=== PATIENT | female | born 1970 | race Caucasian/White ===

== ENCOUNTER → 2017-11-18 | Emergency (ER) | payer OTHER | LOC: ED 19:41 | DX: Z53.21 Procedure and treatment not carried out due to patient leaving prior to being seen by health care provider (principal) ==

== ENCOUNTER 2018-05-11 13:17 | Emergency (ER) | payer OTHER ==
[2018-05-11 13:31] VITALS: O2SAT 100
--- NOTE | 2018-05-11 14:27 | ERPHSYRPT ---
- History of Present Illness Time Seen by Provider: 05/11/18 14:22 Historian: patient, EMS Exam Limitations: no limitations Patient Subjective Stated Complaint: PT states "I was driving and I have been under allot more stress than usual and I felt like I was going to pass out. I have horrible tightness in my head and I am weak." Triage Nursing Assessment: Pt alert and oriented X 3, skin pwd. Pt extremely anxious, shaking, pt ambulates without any difficulty, able to speak in clear full sentences. PT have episodes of increasing anxiety and episodes of being calm. 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 The chest pain she describes as chest tightness. It began while she was coming back to school after obtaining lunch. She recognizes that this is similar to her panic attacks in the past but with the added component of chest tightness. It happened one more time for about 1 minute at school before EMS arrived. Then it occurred for a few seconds in the ED room. She denies nausea or shortness of breath. She denies sweating. She does not smoke or drink. She does not do recreational drugs. There is no direct family history of [place] in her mother or father. Her mother's father had a heart attack at a young age. She does not have high cholesterol. She has been using coping techniques to deal with her anxiety for the last 7 years. She has had anxiety and panic attacks for 13 years and tried to take Celexa 7 years ago but could not. She has been under more stress this week than usual. Timing/Duration: today Activities at Onset: none Quality: tightness Location: central Chest Pain Radiation: no radiation Severity of Pain-Max: moderate Severity of Pain-Current: none Modifying Factors: Improves With: nothing Associated Symptoms: denies symptoms, No nausea, No vomiting, No shortness of breath Prior Chest Pain/Cardiac Workup: no prior chest pain Nitro Today/Relief: no nitro taken today Aspirin Treatment Today: no aspirin today Allergies/Adverse Reactions: citalopram hydrobromide [From Celexa] Adverse Reaction (Verified 04/16/16 20:46) Home Medications: No Reportable Medications [No Reported Medications] 05/11/18 [History] Hx Tetanus, Diphtheria Vaccination/Date Given: Yes Hx Influenza Vaccination/Date Given: No Hx Pneumococcal Vaccination/Date Given: No Immunizations Up to Date: Yes - Review of Systems Constitutional: No Fever, No Chills Eyes: No Symptoms Ears, Nose, & Throat: No Symptoms Respiratory: No Cough, No Dyspnea Cardiac: Chest Pain Abdominal/Gastrointestinal: No Abdominal Pain, No Nausea, No Vomiting, No Diarrhea Genitourinary Symptoms: No Dysuria Musculoskeletal: No Back Pain, No Neck Pain Skin: No Rash Neurological: No Dizziness, No Focal Weakness, No Sensory Changes Psychological: No Symptoms Endocrine: No Symptoms Hematologic/Lymphatic: No Symptoms Immunological/Allergic: No Symptoms All Other Systems: Reviewed and Negative - Past Medical History Pertinent Past Medical History: Yes Neurological History: No Pertinent History Cardiac History: Arrhythmia Respiratory History: No Pertinent History Endocrine Medical History: No Pertinent History Musculoskeletal History: Other GI Medical History: No Pertinent History History: No Pertinent History Psycho-Social History: Anxiety, Panic Disorder Female Reproductive Disorders: No Pertinent History Other Medical History: raynauds - Past Surgical History Past Surgical History: Yes Female Surgical History: Section Other Surgical History: tonsillectomy, 2 C-sections in the past - Social History Smoking Status: Never smoker Exposure to second hand smoke: No Drug Use: none Patient Lives Alone: No - Female History Hx Last Menstrual Period: 05/11/2018 Hx Now: No - Nursing Vital Signs Nursing Vital Signs: Initial Vital Signs Temperature 98.1 F 05/11/18 13:20 Pulse Rate 118 H 05/11/18 13:20 Respiratory Rate 20 05/11/18 13:20 Blood Pressure 141/91 05/11/18 13:20 O2 Sat by Pulse Oximetry 100 05/11/18 13:20 Pain Scale Pain Intensity 0 - Physical Exam General Appearance: no apparent distress, alert Eye Exam: PERRL/EOMI, eyes nml inspection Ears, Nose, Throat Exam: normal ENT inspection, moist mucous membranes Neck Exam: normal inspection, non-tender, supple, full range of motion Respiratory Exam: normal breath sounds, lungs clear, No respiratory distress Cardiovascular Exam: regular rate/rhythm, normal heart sounds Gastrointestinal/Abdomen Exam: soft Pelvic Exam: not done Rectal Exam: not done Back Exam: normal inspection, No CVA tenderness, No vertebral tenderness Extremity Exam: normal inspection, normal range of motion Neurologic Exam: alert, oriented x 3, cooperative, normal mood/affect, sensation nml, No motor deficits Skin Exam: normal color, warm, dry SpO2 Interpretation: normal SpO2: 100 Oxygen Delivery: Room Air - Course EKG Interpreted by Me: RATE, Sinus Tach, NORMAL AXIS, NORMAL INTERVALS, NORMAL QRS, NORMAL ST-T, Other (no change compared to EKG from 08/02/15.) - Radiology Exams Chest X-ray Interpretation: Reviewed by me, Teleradiologist Report (per Dr Soriano), Negative Ordered Tests: Active Orders 24 hr Category Date Time Status Clean Catch Urine Specimen STAT Care 05/11/18 14:27 Active EKG-ER Only STAT Care 05/11/18 14:27 Active IV Insertion STAT Care 05/11/18 14:27 Active CHEST 2 VIEWS (PA AND LAT) Stat Exams 05/11/18 14:28 Completed CBC W DIFF Stat Lab 05/11/18 14:45 Completed CMP Stat Lab 05/11/18 14:45 Completed CULTURE,URINE Stat Lab 05/11/18 14:30 Received TROPONIN Q3H Lab 05/11/18 14:45 Completed TROPONIN Q3H Lab 05/11/18 17:30 Ordered TROPONIN Q3H Lab 05/11/18 20:30 Ordered TROPONIN Q3H Lab 05/11/18 23:30 Ordered TROPONIN Q3H Lab 05/12/18 02:30 Ordered TSH [TSH, 3RD Generation] Stat Lab 05/11/18 14:45 Completed UA W/ MICROSCOPIC Stat Lab 05/11/18 14:30 Completed Urine Triage Profile Stat Lab 05/11/18 14:30 Completed Medication Summary Discontinued Medications Generic Name Dose Route Start Last Admin Trade Name Freq PRN Reason Stop Dose Admin Lorazepam 0.5 mg 05/11/18 15:08 Ativan 0.5 Mg PO 05/11/18 15:09 STAT ONE Lorazepam Confirm 05/11/18 15:12 Ativan 1 Mg Administered 05/11/18 15:13 Dose 1 mg .ROUTE .RUST-MED ONE Lab/Rad Data: Laboratory Result Diagrams 05/11/18 14:45 05/11/18 14:45 Laboratory Results 05/11/18 05/11/18 05/11/18 Range/Units 14:45 14:45 14:45 WBC (4.0-10.5) K/mm3 RBC (4.1-5.4) M/mm3 Hgb (12.0-16.0) gm/dl Hct (35-47) % MCV (78-100) fl MCH (26-32) pg MCHC (32-36) g/dl RDW (11.5-14.0) % Plt Count (150-450) K/mm3 MPV (6-9.5) fl Gran % (36.0-66.0) % Eos # (Auto) (0-0.5) Absolute Lymphs (auto) (1.0-4.6) Absolute Monos (auto) (0.0-1.3) Lymphocytes % (24.0-44.0) % Monocytes % (0.0-12.0) % Eosinophils % (0.00-5.0) % Basophils % (0.0-0.4) % Absolute Granulocytes (1.4-6.9) Basophils # (0-0.4) Sodium 141 (137-145) mmol/L Potassium 4.2 (3.5-5.1) mmol/L Chloride 106 (98-107) mmol/L Carbon Dioxide 26 (22-30) mmol/L Anion Gap 13.4 (5-15) MEQ/L BUN 10 (7-17) mg/dL Creatinine 0.71 (0.52-1.04) mg/dL Estimated GFR > 60.0 ML/MIN Glucose 109 H (74-106) mg/dL Calcium 9.3 (8.4-10.2) mg/dL Total Bilirubin 0.40 (0.2-1.3) mg/dL AST 24 (14-36) U/L ALT 16 (0-35) U/L Alkaline Phosphatase 72 (38-126) U/L Troponin I < 0.012 (0.000-0.034) ng/mL Serum Total Protein 7.9 (6.3-8.2) g/dL Albumin 4.6 (3.5-5.0) g/dL TSH 3rd Generation 0.661 (0.47-4.68) mIU/L Ur Collection Type Urine Color (YELLOW) Urine Appearance (CLEAR) Urine pH (5-6) Ur Specific [place] (1.005-1.025) Urine Protein (Negative) Urine Ketones (NEGATIVE) Urine Blood (0-5) Russell/ul Urine Nitrite (NEGATIVE) Urine Bilirubin (NEGATIVE) Urine Urobilinogen (0-1) mg/dL Ur Leukocyte Esterase (NEGATIVE) Urine Microscopic RBC (0-2) /HPF Urine Microscopic WBC (0-5) /HPF Ur Epithelial Cells (FEW) /HPF Urine Bacteria (NEGATIVE) /HPF Urine Culture Reflexed (NO) Urine Glucose (NEGATIVE) mg/dL Urine Opiates Level (NEGATIVE) Ur Methadone (NEGATIVE) Urine Barbiturates (NEGATIVE) Ur Phencyclidine (PCP) (NEGATIVE) Urine Amphetamine (NEGATIVE) U Benzodiazepine Level (NEGATIVE) Urine Cocaine (NEGATIVE) Urine Marijuana (THC) (NEGATIVE) Specimen Received 05/11/18 05/11/18 05/11/18 Range/Units 14:45 14:30 14:30 WBC 9.3 (4.0-10.5) K/mm3 RBC 4.02 L (4.1-5.4) M/mm3 Hgb 11.4 L (12.0-16.0) gm/dl Hct 35.5 (35-47) % MCV 88.3 (78-100) fl MCH 28.3 (26-32) pg MCHC 32.1 (32-36) g/dl RDW 15.6 H (11.5-14.0) % Plt Count 417 (150-450) K/mm3 MPV 9.2 (6-9.5) fl Gran % 80.2 H (36.0-66.0) % Eos # (Auto) 0.07 (0-0.5) Absolute Lymphs (auto) 1.06 (1.0-4.6) Absolute Monos (auto) 0.67 (0.0-1.3) Lymphocytes % 11.4 L (24.0-44.0) % Monocytes % 7.2 (0.0-12.0) % Eosinophils % 0.8 (0.00-5.0) % Basophils % 0.4 (0.0-0.4) % Absolute Granulocytes 7.44 H (1.4-6.9) Basophils # 0.04 (0-0.4) Sodium (137-145) mmol/L Potassium (3.5-5.1) mmol/L Chloride (98-107) mmol/L Carbon Dioxide (22-30) mmol/L Anion Gap (5-15) MEQ/L BUN (7-17) mg/dL Creatinine (0.52-1.04) mg/dL Estimated GFR ML/MIN Glucose (74-106) mg/dL Calcium (8.4-10.2) mg/dL Total Bilirubin (0.2-1.3) mg/dL AST (14-36) U/L ALT (0-35) U/L Alkaline Phosphatase (38-126) U/L Troponin I (0.000-0.034) ng/mL Serum Total Protein (6.3-8.2) g/dL Albumin (3.5-5.0) g/dL TSH 3rd Generation (0.47-4.68) mIU/L Ur Collection Type CCMS Urine Color YELLOW (YELLOW) Urine Appearance SLIGHTLY CLOUDY (CLEAR) Urine pH 7.0 (5-6) Ur Specific [place] 1.010 (1.005-1.025) Urine Protein TRACE (Negative) Urine Ketones NEGATIVE (NEGATIVE) Urine Blood 250 (0-5) Russell/ul Urine Nitrite NEGATIVE (NEGATIVE) Urine Bilirubin NEGATIVE (NEGATIVE) Urine Urobilinogen NORMAL (0-1) mg/dL Ur Leukocyte Esterase NEGATIVE (NEGATIVE) Urine Microscopic RBC >100 (0-2) /HPF Urine Microscopic WBC 0-2 (0-5) /HPF Ur Epithelial Cells FEW (FEW) /HPF Urine Bacteria RARE (NEGATIVE) /HPF Urine Culture Reflexed YES (NO) Urine Glucose NEGATIVE (NEGATIVE) mg/dL Urine Opiates Level NEGATIVE (NEGATIVE) Ur Methadone NEGATIVE (NEGATIVE) Urine Barbiturates NEGATIVE (NEGATIVE) Ur Phencyclidine (PCP) NEGATIVE (NEGATIVE) Urine Amphetamine NEGATIVE (NEGATIVE) U Benzodiazepine Level NEGATIVE (NEGATIVE) Urine Cocaine NEGATIVE (NEGATIVE) Urine Marijuana (THC) NEGATIVE (NEGATIVE) Specimen Received 05-11-18 1505 - Progress Progress: improved Progress Note: 05/11/18 17:04 The patient was offered Ativan by IV and declined. She decided she wanted Ativan at 0.5 mg orally. When the nurse brought the Ativan to the room, the patient declined. Counseled pt/family regarding: lab results, diagnosis, need for follow-up, rad results - Departure Time of Disposition: 17:05 Departure Disposition: Home Clinical Impression: Panic attack, Chest pain Condition: Stable Critical Care Time: No Referrals: FRANCISCO SMALL [Primary Care Provider] - Additional Instructions: You had a panic attack and chest pain. Your laboratory results were negative. Your TSH was within the normal range. Your EKG and chest x-ray were normal. You declined Ativan both by IV and oral. Follow-up with your primary medical doctor as needed.
[2018-05-11 14:52] LABS: BASOPHIL % 0.4 % (0.0-0.4); Basophil (Absolute #) 0.04 (0-0.4); Eosinophil % 0.8 % (0.00-5.0); Eosinophil (Absolute #) 0.07 (0-0.5); Granulocyte Absolute (ANC) 7.44 (1.4-6.9); Granulocytes % 80.2 % (36.0-66.0); Hematocrit 35.5 % (35-47); Hemoglobin 11.4 gm/dl (12.0-16.0); Lymphocyte (Absolute #) 1.06 (1.0-4.6); Lymphocytes % 11.4 % (24.0-44.0); Mean Cell Volume 88.3 fl (78-100); Mean Corpuscular Hgb Concent. 32.1 g/dl (32-36); Mean Platelet Volume 9.2 fl (6-9.5); Monocyte (Absolute #) 0.67 (0.0-1.3); Monocytes % 7.2 % (0.0-12.0); Platelet Count 417 K/mm3 (150-450); Red Blood Count 4.02 M/mm3 (4.1-5.4); Red Cell Distribution Width 15.6 % (11.5-14.0); White Blood Count 9.3 K/mm3 (4.0-10.5)
--- NOTE | 2018-05-11 14:56 | XRAY ---
Indication: Chest pain. Short of breath. Comparison: August 02, 2015. PA/lateral chest again demonstrates normal heart and lungs. Bony thorax intact with pectus excavatum deformity. No new/acute findings.
[2018-05-11 15:05] LABS: Appearance SLIGHTLY CLOUDY (CLEAR); Bilirubin NEGATIVE (NEGATIVE); Blood 250 Ery/ul (0-5); Glucose NEGATIVE (NEGATIVE); Ketones NEGATIVE (NEGATIVE); Leukocyte Esterase NEGATIVE (NEGATIVE); Nitrite NEGATIVE (NEGATIVE); Protein,Urine Dip TRACE (Negative); Urobilinogen NORMAL mg/dL (0-1)
[2018-05-11 15:07] LABS: Bacteria RARE /HPF (NEGATIVE); Epithelial Cells FEW /HPF (FEW); RBC >100 /HPF (0-2); WBC 0-2 /HPF (0-5)
[2018-05-11] MEDS ORDERED: Ativan 0.5 MG PO ONE (15:08)
[2018-05-11] MEDS ORDERED: Ativan 1 MG ONE (15:12)
[2018-05-11 15:13] LABS: Mean Corpuscular Hemoglobin 28.3 pg (26-32)
[2018-05-11 15:17] LABS: Amphetamine,Urine NEGATIVE (NEGATIVE); Barbiturate,Urine NEGATIVE (NEGATIVE); Benzodiazepine,Urine NEGATIVE (NEGATIVE); Cocaine,Urine NEGATIVE (NEGATIVE); Methadone,Urine NEGATIVE (NEGATIVE); Opiate,Urine NEGATIVE (NEGATIVE); PCP,Urine NEGATIVE (NEGATIVE); THC,Urine NEGATIVE (NEGATIVE)
[2018-05-11 15:17] LABS: ALBUMIN 4.6 g/dL (3.5-5.0); ALKALINE PHOSPHATASE 72 U/L (38-126); ANION GAP 13.4 MEQ/L (5-15); BLOOD UREA NITROGEN 10 mg/dL (7-17); CHLORIDE 106 mmol/L (98-107); Calcium 9.3 mg/dL (8.4-10.2); Carbon Dioxide 26 mmol/L (22-30); Creatinine 1 0.71 mg/dL (0.52-1.04); Glucose 109 mg/dL (74-106); Potassium 4.2 mmol/L (3.5-5.1); SGOT/AST 24 U/L (14-36); SGPT/ALT 16 U/L (0-35); SODIUM 141 mmol/L (137-145); Total Protein 7.9 g/dL (6.3-8.2)
[2018-05-11 17:20] VITALS: BP 120/79; PULSE 78
== END 2018-05-11 17:30 | disposition home or self-care (01) ==
LOC: ED 13:17
DX: F41.0 Panic disorder [episodic paroxysmal anxiety] (principal); R07.9 Chest pain, unspecified
CPT/HCPCS: 36000; 36415; 71046; 80053; 80307; 81000; 84443; 84484; 85025; 87086; 93005; 99284; A9270-GY

== ENCOUNTER 2019-10-10 14:57 | Emergency (ER) | payer OTHER ==
--- NOTE | 2019-10-10 15:06 | ERPHSYRPT ---
- History of Present Illness Time Seen by Provider: 10/10/19 15:06 Source: patient, EMS Exam Limitations: no limitations Physician History: Patient is a 49-year-old female who presents with a chief complaint of palpitations. She endorses having been ill recently over the last week with URI symptoms to include nasal congestion, cough, subjective fever in addition to chills. She states that the above symptoms have since abated however she has had persistent shortness of breath with exertion over the last couple days and mainly today in addition to palpitations and a rapid heart rate mainly in the 130s and 170s, specifically in the 170s whenever she exerts herself. She denies chest pain, nausea, vomiting, diarrhea and reportedly has been eating and drinking well. She states she does have a history of anxiety however her current symptoms are not consistent with her anxiety attacks. Denies any known thyroid disease and states that she has been tested for thyroid disease in the past and had a normal TSH reportedly a couple years ago. She denies syncope, near syncope in addition to abdominal pain vaginal bleeding or vaginal discharge. Allergies/Adverse Reactions: citalopram hydrobromide [From [facility]] Adverse Reaction (Verified 10/10/19 15:18) Home Medications: No Reportable Medications [No Reported Medications] 05/11/18 [History] Hx Tetanus, Diphtheria Vaccination/Date Given: Yes Hx Influenza Vaccination/Date Given: No Hx Pneumococcal Vaccination/Date Given: No - Review of Systems Constitutional: No Fever, No Chills, No Night Sweats Eyes: No Symptoms, Other (Denies proptosis) Ears, Nose, & Throat: No Symptoms Respiratory: Cough, Dyspnea, Dyspnea on Exertion (MCGRAW) Cardiac: Palpitations, Other (Chest tightness), No Edema, No Syncope, No Orthopnea, No PND Abdominal/Gastrointestinal: No Abdominal Pain, No Nausea, No Vomiting, No Diarrhea Genitourinary Symptoms: No Symptoms Musculoskeletal: No Symptoms Skin: No Symptoms Neurological: No Symptoms, No Tremors Psychological: No Hallucinations Endocrine: No Hair Changes, No Cold Intolerance, No Excessive Sweating, No Goiter All Other Systems: Reviewed and Negative - Past Medical History Pertinent Past Medical History: Yes Neurological History: No Pertinent History Cardiac History: Arrhythmia Respiratory History: No Pertinent History Endocrine Medical History: No Pertinent History Musculoskeletal History: Other GI Medical History: No Pertinent History History: No Pertinent History Psycho-Social History: Anxiety, Panic Disorder Female Reproductive Disorders: No Pertinent History Other Medical History: raynauds - Past Surgical History Past Surgical History: Yes Female Surgical History: Section Other Surgical History: tonsillectomy, 2 C-sections in the past - Social History Smoking Status: Never smoker Exposure to second hand smoke: No Drug Use: none Patient Lives Alone: No - Nursing Vital Signs Nursing Vital Signs: Initial Vital Signs Temperature 98.4 F 10/10/19 15:05 Pulse Rate 133 H 10/10/19 15:05 Respiratory Rate 22 10/10/19 15:05 Blood Pressure 153/93 10/10/19 15:05 O2 Sat by Pulse Oximetry 100 10/10/19 15:05 Pain Scale Pain Intensity 2 - Physical Exam General Appearance: no apparent distress Eye Exam: PERRL/EOMI, No EOM palsy/anisocoria Ears, Nose, Throat Exam: moist mucous membranes, No TM abnormal (L), No pharyngeal erythema, No tonsillar exudate Neck Exam: normal inspection, other (Non-tender thyroid and no palpable thyroid nodules. ), No thyromegaly Respiratory Exam: normal breath sounds, lungs clear, airway intact, No chest tenderness, No respiratory distress Cardiovascular Exam: regular rate/rhythm, normal heart sounds, normal peripheral pulses, tachycardia, capillary refill <2 sec, No murmur, No friction rub Gastrointestinal/Abdomen Exam: soft, No tenderness, No distention Pelvic Exam: not done Rectal Exam: deferred Back Exam: normal inspection Extremity Exam: normal inspection, other (No asymmetric lower extremity swelling , calf tenderness, or erythema to suggest DVT), No calf tenderness, No deformities, No swelling, No tenderness Neurologic Exam: alert, oriented x 3, cooperative Skin Exam: normal color, warm, dry, No rash O2 Delivery: Room Air - Course Nursing assessment & vital signs reviewed: Yes EKG Interpreted by Me: Sinus Tach, NORMAL AXIS, NORMAL INTERVALS, NORMAL QRS, Other (Vent rate 128 bpm, ME itnerval 138 ms, QRS duration 70 ms, QT/QTc 308/ 448 ms, no evidence of acute myocardial ischemia or injury) - Radiology Exams Chest X-ray Interpretation: Reviewed by me, Other (Pectus excavatum, no additonal acute pathology noted.) Ordered Tests: Active Orders 24 hr Category Date Time Status CK-Creatinine Phosphokinase Stat Lab 10/10/19 16:42 Completed HCG,QUALITATIVE URINE Stat Lab 10/10/19 18:21 Completed NT PRO BNP Stat Lab 10/10/19 16:42 Completed Holter Monitor ONCE RT 10/10/19 19:29 Active Medication Summary Discontinued Medications Generic Name Dose Route Start Last Admin Trade Name Aakash PRN Reason Stop Dose Admin Sodium Chloride 1,000 mls @ 999 mls/hr 10/10/19 15:28 10/10/19 16:52 Sodium Chloride 0.9% 1000 Ml IV 10/10/19 16:28 Infused .Q1H1M STA Infusion Sodium Chloride Confirm 10/10/19 15:35 Sodium Chloride 0.9% 1000 Ml Administered 10/10/19 15:36 Dose 1,000 mls @ ud .ROUTE .K-MED ONE Lab/Rad Data: Laboratory Result Diagrams 10/10/19 15:30 10/10/19 15:30 Laboratory Results 10/10/19 10/10/19 10/10/19 Range/Units Unknown Unknown 18:21 WBC (4.0-10.5) K/mm3 RBC (4.1-5.4) M/mm3 Hgb (12.0-16.0) gm/dl Hct (35-47) % MCV (78-100) fl MCH (26-32) pg MCHC (32-36) g/dl RDW (11.5-14.0) % Plt Count (150-450) K/mm3 MPV (7.5-11.0) fl Gran % (36.0-66.0) % Eos # (Auto) (0-0.5) Absolute Lymphs (auto) (1.0-4.6) Absolute Monos (auto) (0.0-1.3) Lymphocytes % (24.0-44.0) % Monocytes % (0.0-12.0) % Eosinophils % (0.00-5.0) % Basophils % (0.0-0.4) % Absolute Granulocytes (1.4-6.9) Basophils # (0-0.4) D-Dimer (215-500) ng/mL Sodium (137-145) mmol/L Potassium (3.5-5.1) mmol/L Chloride (98-107) mmol/L Carbon Dioxide (22-30) mmol/L Anion Gap (5-15) MEQ/L BUN (7-17) mg/dL Creatinine (0.52-1.04) mg/dL Estimated GFR ML/MIN Glucose (74-106) mg/dL Calcium (8.4-10.2) mg/dL Creatine Kinase (30-135) U/L Troponin I (0.000-0.034) ng/mL NT-Pro-B Natriuret Pep (0-450) pg/mL Free T4 1.36 (0.76-1.46) ng/dL Free T3 pg/mL 3.74 (2.77-5.27) pg/mL TSH 3rd Generation (0.47-4.68) mIU/L Urine HCG, Qual NEGATIVE (Negative) 10/10/19 10/10/19 10/10/19 Range/Units 16:42 15:30 15:30 WBC (4.0-10.5) K/mm3 RBC (4.1-5.4) M/mm3 Hgb (12.0-16.0) gm/dl Hct (35-47) % MCV (78-100) fl MCH (26-32) pg MCHC (32-36) g/dl RDW (11.5-14.0) % Plt Count (150-450) K/mm3 MPV (7.5-11.0) fl Gran % (36.0-66.0) % Eos # (Auto) (0-0.5) Absolute Lymphs (auto) (1.0-4.6) Absolute Monos (auto) (0.0-1.3) Lymphocytes % (24.0-44.0) % Monocytes % (0.0-12.0) % Eosinophils % (0.00-5.0) % Basophils % (0.0-0.4) % Absolute Granulocytes (1.4-6.9) Basophils # (0-0.4) D-Dimer 437 (215-500) ng/mL Sodium (137-145) mmol/L Potassium (3.5-5.1) mmol/L Chloride (98-107) mmol/L Carbon Dioxide (22-30) mmol/L Anion Gap (5-15) MEQ/L BUN (7-17) mg/dL Creatinine (0.52-1.04) mg/dL Estimated GFR ML/MIN Glucose (74-106) mg/dL Calcium (8.4-10.2) mg/dL Creatine Kinase 62 (30-135) U/L Troponin I (0.000-0.034) ng/mL NT-Pro-B Natriuret Pep 59.8 (0-450) pg/mL Free T4 (0.76-1.46) ng/dL Free T3 pg/mL (2.77-5.27) pg/mL TSH 3rd Generation 0.388 L (0.47-4.68) mIU/L Urine HCG, Qual (Negative) 10/10/19 10/10/19 Range/Units 15:30 15:30 WBC 4.5 (4.0-10.5) K/mm3 RBC 4.78 (4.1-5.4) M/mm3 Hgb 13.5 (12.0-16.0) gm/dl Hct 41.6 (35-47) % MCV 87.0 (78-100) fl MCH 28.2 (26-32) pg MCHC 32.5 (32-36) g/dl RDW 16.1 H (11.5-14.0) % Plt Count 308 (150-450) K/mm3 MPV 9.9 (7.5-11.0) fl Gran % 61.5 (36.0-66.0) % Eos # (Auto) 0.02 (0-0.5) Absolute Lymphs (auto) 0.89 L (1.0-4.6) Absolute Monos (auto) 0.81 (0.0-1.3) Lymphocytes % 19.7 L (24.0-44.0) % Monocytes % 18.0 H (0.0-12.0) % Eosinophils % 0.4 (0.00-5.0) % Basophils % 0.4 (0.0-0.4) % Absolute Granulocytes 2.77 (1.4-6.9) Basophils # 0.02 (0-0.4) D-Dimer (215-500) ng/mL Sodium 143 (137-145) mmol/L Potassium 3.5 (3.5-5.1) mmol/L Chloride 106 (98-107) mmol/L Carbon Dioxide 24 (22-30) mmol/L Anion Gap 16.3 H (5-15) MEQ/L BUN 8 (7-17) mg/dL Creatinine 0.75 (0.52-1.04) mg/dL Estimated GFR > 60.0 ML/MIN Glucose 110 H (74-106) mg/dL Calcium 10.0 (8.4-10.2) mg/dL Creatine Kinase (30-135) U/L Troponin I < 0.012 (0.000-0.034) ng/mL NT-Pro-B Natriuret Pep (0-450) pg/mL Free T4 (0.76-1.46) ng/dL Free T3 pg/mL (2.77-5.27) pg/mL TSH 3rd Generation (0.47-4.68) mIU/L Urine HCG, Qual (Negative) - Progress Progress: improved Progress Note: 10/10/19 18:20 Endocrinology is currently paged, specifically Dr. Watt with [facility] 10/10/19 18:48 Endocrinology at [facility] has been paged. Currently awaiting callback. 10/10/19 19:[address] Watt, endocrinology, and discussed the case with him. He did not think the patient needed treatment for her low TSH and normal T3/T4. He stated the patient can follow-up with him his is office. The number is [phone]. 10/11/19 16:49 Nontoxic in appearance. Low gestalt for PE and well-score for PE low and with a d-dimer wnl further workup for such was deferred. With the exception of a low TSH, her remaining workup was benign. Encrinology was consulted (see above) . On reassessment, the patient's tachycardia resolved at rest, but when awoke or interacting with the patient, her HR would increase to the 110's. EKG without evidence of acute myocardial ischemia or injury and sinus. CXR without evidence of PNA, pleural effusion, or mass. No evidence of infectious etiology. The plan is to have the patient placed on a holter monitor and have the results sent to her PCP. She was also instructed to f/u with endocrinology. ? anxiety is also on the differential. Discussed with Dr.: Other (Dr. Watt, endrocrinology) Counseled pt/family regarding: lab results, diagnosis, need for follow-up, rad results - Departure Departure Disposition: Home Clinical Impression: Palpitations, Low TSH level, Tachycardia Condition: Stable Critical Care Time: No Referrals: FRANCISCO SMALL [Primary Care Provider] - AAKASH WATT [NON-STAFF PHY W/O PRIVILEGES] - Instructions: Ambulatory Cardiac Monitoring (DC), Thyroid Stimulating Hormone Test, Palpitations (DC) Additional Instructions: Please follow-up with Dr. Watt within then next 1-2 weeks. Please call the office to schedule an appointment. The number to the clinic is . Outpatient Orders: Holter Monitor Location: [facility]
[2019-10-10] MEDS ORDERED: Sodium Chloride 0.9% 1000 ML 1,000 ML IV STA (15:28)
[2019-10-10] MEDS ORDERED: Sodium Chloride 0.9% 1000 ML 1,000 ML ONE (15:35)
[2019-10-10 15:42] LABS: Absolute Neutrophil Ct (ANC) 2.77 (1.4-6.9); BASOPHIL % 0.4 % (0.0-0.4); Basophil (Absolute #) 0.02 (0-0.4); Eosinophil % 0.4 % (0.00-5.0); Eosinophil (Absolute #) 0.02 (0-0.5); Hematocrit 41.6 % (35-47); Hemoglobin 13.5 gm/dl (12.0-16.0); Lymphocyte (Absolute #) 0.89 (1.0-4.6); Lymphocytes % 19.7 % (24.0-44.0); Mean Corpuscular Hemoglobin 28.2 pg (26-32); Mean Corpuscular Hgb Concent. 32.5 g/dl (32-36); Mean Platelet Volume 9.9 fl (7.5-11.0); Monocyte (Absolute #) 0.81 (0.0-1.3); Neutrophil % 61.5 % (36.0-66.0); Platelet Count 308 K/mm3 (150-450); Red Blood Count 4.78 M/mm3 (4.1-5.4); Red Cell Distribution Width 16.1 % (11.5-14.0); White Blood Count 4.5 K/mm3 (4.0-10.5)
--- NOTE | 2019-10-10 15:56 | XRAY ---
Indication: Dyspnea and palpitations. Comparison: May 11, 2018. PA/lateral chest again demonstrates normal heart and lungs. Bony thorax intact again with pectus excavatum deformity. No new/acute findings.
[2019-10-10 16:03] LABS: ANION GAP 16.3 MEQ/L (5-15); BLOOD UREA NITROGEN 8 mg/dL (7-17); CHLORIDE 106 mmol/L (98-107); Carbon Dioxide 24 mmol/L (22-30); Creatinine 1 0.75 mg/dL (0.52-1.04); Glucose 110 mg/dL (74-106); Potassium 3.5 mmol/L (3.5-5.1); SODIUM 143 mmol/L (137-145)
[2019-10-10 16:06] LABS: TROPONIN < 0.012 ng/mL (0.000-0.034)
[2019-10-10 17:45] LABS: NT PRO BNP 59.8 pg/mL (0-450)
[2019-10-10 19:43] VITALS: O2SAT 99
[2019-10-10 19:50] VITALS: BP 134/85; PULSE 97
== END 2019-10-10 20:02 | disposition home or self-care (01) ==
LOC: ED 14:57
DX: R00.2 Palpitations (principal); R94.6 Abnormal results of thyroid function studies; R00.0 Tachycardia, unspecified
CPT/HCPCS: 36000; 36415; 71046; 80048; 82550; 83880; 84439; 84443; 84481; 84484; 84703; 85025; 85379; 93005; 93041; 94760; 96360; 96374; 99284

== ENCOUNTER 2020-02-02 22:25 | Emergency (ER) | payer OTHER ==
[2020-02-02] MEDS ORDERED: Sodium Chloride 0.9% 1000 ML 1,000 ML IV STA (22:41)
[2020-02-02] MEDS ORDERED: Sodium Chloride 0.9% 1000 ML 1,000 ML ONE (22:44)
--- NOTE | 2020-02-02 22:47 | ERPHSYRPT ---
- History of Present Illness Time Seen by Provider: 02/02/20 22:34 Historian: patient Exam Limitations: no limitations Physician History: 49 years old female presented in the ER with chief complaint of sudden onset right lower quadrant sharp nature moderate to severe intensity pain around 7:30 PM tonight. Patient report pain comes and goes, aggravated with movements palpation, sitting on it and better with standing. Denies any urinary symptoms. No vaginal bleeding or discharge. Not associated nausea or vomiting. Timing/Duration: hour(s) (4), intermittent, worse Activities at Onset: rest Quality: sharpness Abdominal Pain Onset Location: RLQ Pain Radiation: no radiation Severity of Pain-Max: severe Severity of Pain-Current: moderate Modifying Factors: Improves With: movement, palpation, rest Associated Symptoms: denies symptoms Previous symptoms: no prior history Allergies/Adverse Reactions: citalopram hydrobromide [From [employer]] Adverse Reaction (Verified 02/02/20 22:51) Home Medications: No Reportable Medications [No Reported Medications] 05/11/18 [History] Hx Tetanus, Diphtheria Vaccination/Date Given: Yes Hx Influenza Vaccination/Date Given: No Hx Pneumococcal Vaccination/Date Given: No - Review of Systems Constitutional: No Symptoms Eyes: No Symptoms Ears, Nose, & Throat: No Symptoms Respiratory: No Symptoms Cardiac: No Symptoms Abdominal/Gastrointestinal: Abdominal Pain Genitourinary Symptoms: No Symptoms Musculoskeletal: No Symptoms Skin: No Symptoms Neurological: No Symptoms Psychological: No Symptoms Endocrine: No Symptoms Hematologic/Lymphatic: No Symptoms Immunological/Allergic: No Symptoms - Past Medical History Pertinent Past Medical History: Yes Neurological History: No Pertinent History Cardiac History: Arrhythmia Respiratory History: No Pertinent History Endocrine Medical History: No Pertinent History Musculoskeletal History: Other GI Medical History: No Pertinent History History: No Pertinent History Psycho-Social History: Anxiety, Panic Disorder Female Reproductive Disorders: No Pertinent History Other Medical History: raynauds - Past Surgical History Past Surgical History: Yes Female Surgical History: Section Other Surgical History: tonsillectomy, 2 C-sections in the past - Social History Smoking Status: Never smoker Exposure to second hand smoke: No Drug Use: none Patient Lives Alone: No - Female History Hx Now: No - Nursing Vital Signs Nursing Vital Signs: Initial Vital Signs Temperature 98.2 F 02/02/20 22:29 Pulse Rate 128 H 02/02/20 22:29 Respiratory Rate 14 02/02/20 22:29 Blood Pressure 165/90 02/02/20 22:29 O2 Sat by Pulse Oximetry 100 02/02/20 22:29 Pain Scale Pain Intensity 3 - Physical Exam General Appearance: mild distress Eye Exam: eyes nml inspection Ears, Nose, Throat Exam: normal ENT inspection, pharynx normal Neck Exam: normal inspection, supple, full range of motion Respiratory Exam: normal breath sounds, lungs clear Cardiovascular Exam: regular rate/rhythm, normal heart sounds Gastrointestinal/Abdomen Exam: soft, tenderness (Right lower quadrant with guarding, no rebound. Positive Rovsing sign. Negative psoas sign) Back Exam: normal inspection Extremity Exam: normal inspection, normal range of motion Neurologic Exam: alert, oriented x 3, cooperative Skin Exam: normal color SpO2 Interpretation: normal O2 Delivery: Room Air - Course Nursing assessment & vital signs reviewed: Yes Ordered Tests: Active Orders 24 hr Category Date Time Status IV Insertion STAT Care 02/02/20 22:41 Active Isolation, Initiate & Maintain Q4H Care 02/02/20 22:49 Active ABDOMEN AND PELVIS W/0 CONTRAS [CT] Stat Exams 02/02/20 22:41 Taken AMYLASE Stat Lab 02/02/20 22:40 Completed CBC W DIFF Stat Lab 02/02/20 22:40 Completed CMP Stat Lab 02/02/20 22:40 Completed HCG,QUALITATIVE URINE Stat Lab 02/02/20 22:40 Completed LIPASE Stat Lab 02/02/20 22:40 Completed Lactic Acid Stat Lab 02/02/20 22:55 Completed UA W/RFX UR CULTURE Stat Lab 02/02/20 22:40 Completed Medication Summary Discontinued Medications Generic Name Dose Route Start Last Admin Trade Name Aakash PRN Reason Stop Dose Admin Sodium Chloride 1,000 mls @ 999 mls/hr 02/02/20 22:41 02/02/20 23:59 Sodium Chloride 0.9% 1000 Ml IV 02/02/20 23:41 999 mls/hr .Q1H1M STA Infusion Sodium Chloride Confirm 02/02/20 22:44 Sodium Chloride 0.9% 1000 Ml Administered 02/02/20 22:45 Dose 1,000 mls @ ud .ROUTE .STK-MED ONE Lab/Rad Data: Laboratory Result Diagrams 02/02/20 22:40 02/02/20 22:40 Laboratory Results 06/01/1602/02/20 02/02/20 Range/Units 22:55 22:40 22:40 WBC (4.0-10.5) K/mm3 RBC (4.1-5.4) M/mm3 Hgb (12.0-16.0) gm/dl Hct (35-47) % MCV (78-100) fl MCH (26-32) pg MCHC (32-36) g/dl RDW (11.5-14.0) % Plt Count (150-450) K/mm3 MPV (7.5-11.0) fl Gran % (36.0-66.0) % Eos # (Auto) (0-0.5) Absolute Lymphs (auto) (1.0-4.6) Absolute Monos (auto) (0.0-1.3) Lymphocytes % (24.0-44.0) % Monocytes % (0.0-12.0) % Eosinophils % (0.00-5.0) % Basophils % (0.0-0.4) % Absolute Granulocytes (1.4-6.9) Basophils # (0-0.4) Sodium (137-145) mmol/L Potassium (3.5-5.1) mmol/L Chloride (98-107) mmol/L Carbon Dioxide (22-30) mmol/L Anion Gap (5-15) MEQ/L BUN (7-17) mg/dL Creatinine (0.52-1.04) mg/dL Estimated GFR ML/MIN Glucose (74-106) mg/dL Lactic Acid 1.1 (0.4-2.0) Calcium (8.4-10.2) mg/dL Total Bilirubin (0.2-1.3) mg/dL AST (14-36) U/L ALT (0-35) U/L Alkaline Phosphatase (38-126) U/L Serum Total Protein (6.3-8.2) g/dL Albumin (3.5-5.0) g/dL Amylase (30-110) U/L Lipase (23-300) U/L Urine Color COLORLESS (YELLOW) Urine Appearance CLEAR (CLEAR) Urine pH 6.0 (5-6) Ur Specific Endeavor 1.001 (1.005-1.025) Urine Protein NEGATIVE (Negative) Urine Ketones NEGATIVE (NEGATIVE) Urine Blood SMALL (0-5) Russell/ul Urine Nitrite NEGATIVE (NEGATIVE) Urine Bilirubin NEGATIVE (NEGATIVE) Urine Urobilinogen NEGATIVE (0-1) mg/dL Ur Leukocyte Esterase NEGATIVE (NEGATIVE) Urine WBC (Auto) NONE (0-5) /HPF Urine RBC (Auto) NONE (0-2) /HPF U Epithel Cells (Auto) NONE (FEW) /HPF Urine Bacteria (Auto) NONE (NEGATIVE) /HPF Urine Mucus (Auto) SLIGHT (NEGATIVE) /HPF Urine Culture Reflexed NO (NO) Urine Glucose NEGATIVE (NEGATIVE) mg/dL Urine HCG, Qual NEGATIVE (Negative) 02/02/20 02/02/20 Range/Units 22:40 22:40 WBC 9.8 (4.0-10.5) K/mm3 RBC 4.04 L (4.1-5.4) M/mm3 Hgb 11.5 L (12.0-16.0) gm/dl Hct 36.4 (35-47) % MCV 90.1 (78-100) fl MCH 28.5 (26-32) pg MCHC 31.6 L (32-36) g/dl RDW 14.0 (11.5-14.0) % Plt Count 366 (150-450) K/mm3 MPV 10.1 (7.5-11.0) fl Gran % 73.1 H (36.0-66.0) % Eos # (Auto) 0.12 (0-0.5) Absolute Lymphs (auto) 1.58 (1.0-4.6) Absolute Monos (auto) 0.91 (0.0-1.3) Lymphocytes % 16.1 L (24.0-44.0) % Monocytes % 9.3 (0.0-12.0) % Eosinophils % 1.2 (0.00-5.0) % Basophils % 0.3 (0.0-0.4) % Absolute Granulocytes 7.18 H (1.4-6.9) Basophils # 0.03 (0-0.4) Sodium 141 (137-145) mmol/L Potassium 3.6 (3.5-5.1) mmol/L Chloride 106 (98-107) mmol/L Carbon Dioxide 23 (22-30) mmol/L Anion Gap 15.1 H (5-15) MEQ/L BUN 8 (7-17) mg/dL Creatinine 0.78 (0.52-1.04) mg/dL Estimated GFR > 60.0 ML/MIN Glucose 106 (74-106) mg/dL Lactic Acid (0.4-2.0) Calcium 9.8 (8.4-10.2) mg/dL Total Bilirubin 0.50 (0.2-1.3) mg/dL AST 26 (14-36) U/L ALT 14 (0-35) U/L Alkaline Phosphatase 72 (38-126) U/L Serum Total Protein 8.7 H (6.3-8.2) g/dL Albumin 4.8 (3.5-5.0) g/dL Amylase 131 H (30-110) U/L Lipase 296 (23-300) U/L Urine Color (YELLOW) Urine Appearance (CLEAR) Urine pH (5-6) Ur Specific Endeavor (1.005-1.025) Urine Protein (Negative) Urine Ketones (NEGATIVE) Urine Blood (0-5) Russell/ul Urine Nitrite (NEGATIVE) Urine Bilirubin (NEGATIVE) Urine Urobilinogen (0-1) mg/dL Ur Leukocyte Esterase (NEGATIVE) Urine WBC (Auto) (0-5) /HPF Urine RBC (Auto) (0-2) /HPF U Epithel Cells (Auto) (FEW) /HPF Urine Bacteria (Auto) (NEGATIVE) /HPF Urine Mucus (Auto) (NEGATIVE) /HPF Urine Culture Reflexed (NO) Urine Glucose (NEGATIVE) mg/dL Urine HCG, Qual (Negative) - Progress Progress: pain not gone completely, re-examined Progress Note: 49 years old is evaluated for right lower quadrant pain sudden onset around 7: 30 PM intermittent. Patient is offered pain medication but she refused multiple times. Acute abdomen work-up was done and she has normal white count, grossly unremarkable chemistries. No UTIs. I have recommended CT with contrast because of right lower quadrant tenderness but patient did not want contrast and is aware of the fact that noncontrast study can miss few things. CT abdomen pelvis without contrast showed normal appendix no obstruction perforation, stones or any adnexal pathology. Patient still have intermittent pain in the right lower quadrant. She is offered symptomatic treatment again which she refused. This could be very early presentation of acute appendicitis but she has normal white count and unremarkable CT I do not think patient needs immediate surgical consultation or it could be pain from spasms. Given the option of ultrasound to further evaluate but patient wants to go home. She is advised to take Tylenol/ibuprofen as needed. Discussed signs symptoms of worsening needing return to ER which he seems understanding. Counseled pt/family regarding: lab results, diagnosis, need for follow-up, rad results - Departure Departure Disposition: Home Clinical Impression: Pain, abdominal, RLQ Condition: Stable Critical Care Time: No Referrals: FRANCISCO SMALL [Primary Care Provider] - Follow Up with PCP/3 days Instructions: Acute Abdomen (Belly Pain), Adult (DC) Additional Instructions: take Tylenol/ Ibuprofen as needed. follow up with PCP for re-evaluation. Return to0 ER for worsening pain/vomiting/fever etc.
[2020-02-02 22:49] VITALS: O2SAT 100
[2020-02-02 22:59] LABS: Absolute Neutrophil Ct (ANC) 7.18 (1.4-6.9); BASOPHIL % 0.3 % (0.0-0.4); Basophil (Absolute #) 0.03 (0-0.4); Eosinophil % 1.2 % (0.00-5.0); Eosinophil (Absolute #) 0.12 (0-0.5); Hematocrit 36.4 % (35-47); Hemoglobin 11.5 gm/dl (12.0-16.0); Lymphocyte (Absolute #) 1.58 (1.0-4.6); Lymphocytes % 16.1 % (24.0-44.0); Mean Cell Volume 90.1 fl (78-100); Mean Corpuscular Hemoglobin 28.5 pg (26-32); Mean Corpuscular Hgb Concent. 31.6 g/dl (32-36); Mean Platelet Volume 10.1 fl (7.5-11.0); Monocyte (Absolute #) 0.91 (0.0-1.3); Monocytes % 9.3 % (0.0-12.0); Neutrophil % 73.1 % (36.0-66.0); Platelet Count 366 K/mm3 (150-450); Red Blood Count 4.04 M/mm3 (4.1-5.4); White Blood Count 9.8 K/mm3 (4.0-10.5)
[2020-02-02 23:04] LABS: Appearance CLEAR (CLEAR); Bilirubin NEGATIVE (NEGATIVE); Blood SMALL Ery/ul (0-5); Glucose NEGATIVE (NEGATIVE); Ketones NEGATIVE (NEGATIVE); Leukocyte Esterase NEGATIVE (NEGATIVE); Mucus SLIGHT /HPF (NEGATIVE); Nitrite NEGATIVE (NEGATIVE); Protein,Urine Dip NEGATIVE (Negative); Specific Gravity 1.001 (1.005-1.025); Urobilinogen NEGATIVE mg/dL (0-1)
[2020-02-02 23:10] LABS: ALBUMIN 4.8 g/dL (3.5-5.0); ALKALINE PHOSPHATASE 72 U/L (38-126); AMYLASE 131 U/L (30-110); ANION GAP 15.1 MEQ/L (5-15); BLOOD UREA NITROGEN 8 mg/dL (7-17); CHLORIDE 106 mmol/L (98-107); Calcium 9.8 mg/dL (8.4-10.2); Carbon Dioxide 23 mmol/L (22-30); Creatinine 1 0.78 mg/dL (0.52-1.04); Glucose 106 mg/dL (74-106); LIPASE 296 U/L (23-300); Potassium 3.6 mmol/L (3.5-5.1); SGOT/AST 26 U/L (14-36); SGPT/ALT 14 U/L (0-35); SODIUM 141 mmol/L (137-145); Total Protein 8.7 g/dL (6.3-8.2)
[2020-02-03 00:17] VITALS: BP 147/81; PULSE 80
--- NOTE | 2020-02-03 07:10 | XRAY ---
Indication: Right lower quadrant pain. Multiple contiguous axial images obtained through the abdomen and pelvis without contrast using renal stone protocol. Comparison: None Lung bases are clear. Heart is not enlarged. No renal calculus or evidence for obstructive uropathy in either system. Noncontrasted stomach and bowel loops appear nonobstructed. Normal appendix with tiny appendicolith. Fecal debris predominantly in the right hemicolon. No free fluid/air. Remaining liver, gallbladder, pancreas, spleen, adrenal glands, kidneys, ureters, bladder, uterus, and aorta appear unremarkable for noncontrast exam. Osseous structures intact. Small fatty umbilical hernia. Impression: 1. Negative renal calculus or evidence for obstructive uropathy. 2. Small fatty umbilical hernia and tiny appendicolith. 3. Remaining CT abdomen/pelvis without contrast exam is negative. Comment: Preliminary interpretation was made by [facility]. No critical discrepancy.
== END 2020-02-03 00:15 | disposition home or self-care (01) ==
LOC: ED 22:25
DX: R10.31 Right lower quadrant pain (principal)
CPT/HCPCS: 36000; 36415; 74176; 80053; 81001; 82150; 83605; 83690; 84703; 85025; 96360; 99284

== ENCOUNTER 2021-05-13 15:25 | Emergency (ER) | payer OTHER ==
[2021-05-13] MEDS ORDERED: Sodium Chloride 0.9% 1000 ML 1,000 ML IV STA (15:59)
--- NOTE | 2021-05-13 16:10 | ERPHSYRPT ---
- History of Present Illness Time Seen by Provider: 05/13/21 15:45 Source: patient Exam Limitations: no limitations Patient Subjective Stated Complaint: abnormal menstral bleeding, LMP regular before now 1+ year ago. intermittent spotting since then. knot to lower abd near c section scar. Triage Nursing Assessment: pt to ED c/o heavy vaginal bleeding and pelvic pain 11/06. pain and bleeding started 3 days ago. pt thought she was going through me nopause d/t last regular period being march 2020. intermittent spotting since then. states she is soaking 1 pad every couple hours with some blood clots. had appt with [facility] today but the office does not take her insurance so she could not be seen there. does not normally see OB. Physician History: Patient is a 51-year-old female presents to us today with complaints of vaginal bleeding that has been ongoing for the last 3 days. Patient believes she is currently experiencing menopause. Her last regular menstrual period was March 2020. Patient states she has been experiencing intermittent spotting for approximately 1 year. However over the past 3 days her bleeding has become severe. Patient states she is bleeding through 1 pad per hour. No syncope no dizziness. Patient has a resting tachycardia observed on patient observer. No chest pain or shortness of breath. Symptoms are constant. Symptoms are moderate in intensity. No specific worsening improving factors. Patient does not believe she has a STI. Patient adds that she feels a firm area at the base of her previous incision. Patient is otherwise healthy. She voices no other complaints or concerns at this time. Timing/Duration: day(s) (3 days) Activites at Onset: none Quality: aching Onset Location: other (Suprapubic region/pelvis.) Severity of Pain-Max: moderate Severity of Pain-Current: mild Prior abdominal problems: none Sexual intercourse history: other (Patient states she has been intimate with one male partner for the past year.) Modifying Factors: Improves With: nothing Associated Symptoms: denies symptoms, vaginal discharge, No fever, No nausea, No vomiting, No polyuria, No urinary frequency, No swelling Allergies/Adverse Reactions: citalopram hydrobromide [From Celexa] Adverse Reaction (Verified 05/13/21 15:47) Hx Tetanus, Diphtheria Vaccination/Date Given: Yes Hx Influenza Vaccination/Date Given: No Hx Pneumococcal Vaccination/Date Given: No Travel Risk - International Travel Have you traveled outside of the country in past 3 weeks: No - Coronavirus Screening Are you exhibiting any of the following symptoms?: No Close contact with a COVID-19 positive Pt in past 14-21 Days: No - Vaccine Status Have you recieved a Covid-19 vaccination: No - Review of Systems Constitutional: No Symptoms, No Fever, No Chills Eyes: No Symptoms Ears, Nose, & Throat: No Symptoms Respiratory: No Symptoms, No Cough, No Dyspnea Cardiac: No Symptoms, No Chest Pain, No Edema, No Syncope Abdominal/Gastrointestinal: No Symptoms, No Abdominal Pain, No Nausea, No Vomiting, No Diarrhea Genitourinary Symptoms: No Symptoms, No Dysuria Musculoskeletal: No Symptoms, No Back Pain, No Neck Pain Skin: No Symptoms, No Rash Neurological: No Symptoms, No Dizziness, No Focal Weakness, No Sensory Changes Psychological: No Symptoms Endocrine: No Symptoms Hematologic/Lymphatic: No Symptoms Immunological/Allergic: No Symptoms All Other Systems: Reviewed and Negative - Past Medical History Pertinent Past Medical History: Yes Neurological History: No Pertinent History ENT History: No Pertinent History Cardiac History: Arrhythmia Respiratory History: No Pertinent History Endocrine Medical History: No Pertinent History Musculoskeletal History: Other GI Medical History: No Pertinent History History: No Pertinent History Psycho-Social History: Anxiety, Panic Disorder Female Reproductive Disorders: No Pertinent History Other Medical History: raynauds. SVT - Past Surgical History Past Surgical History: Yes Female Surgical History: Section Other Surgical History: tonsillectomy, 2 C-sections in the past - Social History Smoking Status: Never smoker Exposure to second hand smoke: No Drug Use: none Patient Lives Alone: Yes - Female History Hx Now: No - Nursing Vital Signs Nursing Vital Signs: Initial Vital Signs Temperature 97.7 F 05/13/21 15:38 Pulse Rate 109 H 05/13/21 15:38 Respiratory Rate 20 05/13/21 15:38 Blood Pressure 178/98 05/13/21 15:38 O2 Sat by Pulse Oximetry 100 05/13/21 15:38 Pain Scale Pain Intensity 3 - Physical Exam General Appearance: no apparent distress, alert Eye Exam: PERRL/EOMI, eyes nml inspection Ears, Nose, Throat Exam: normal ENT inspection, TMs normal, pharynx normal, moist mucous membranes Neck Exam: normal inspection, non-tender, supple, full range of motion Respiratory Exam: normal breath sounds, lungs clear, airway intact, No respiratory distress Cardiovascular Exam: regular rate/rhythm, normal heart sounds, normal peripheral pulses Gastrointestinal/Abdomen Exam: soft, normal bowel sounds, No tenderness, No mass Pelvic Exam: normal external exam, adnexal tenderness (Mild right adnexal tend erness.), vaginal discharge (There is blood in the vaginal vault. 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 Nonvisualization left ovary. Remaining transabdominal pelvic sonography 3 is n egative. There is a 1.6 x 1.2 x 1.6 left-sided submucosal fibroid. Endometrial stripe is 9 mm. Right ovary measures 3.9 x 2.4 x 3.7 cm.) Ordered Tests: Active Orders 24 hr Category Date Time Status Metal Bonding Crib Attendant STAT Care 05/13/21 16:00 Active IV Insertion STAT Care 05/13/21 15:59 Active Pulse Oximetry (ED) STAT Care 05/13/21 15:59 Active PELVIC [US] Stat Exams 05/13/21 15:59 Completed CBC W DIFF Stat Lab 05/13/21 16:25 Completed CMP Stat Lab 05/13/21 16:25 Completed CULTURE,URINE Stat Lab 05/13/21 16:19 Received HCG,QUALITATIVE URINE Stat Lab 05/13/21 16:19 Completed PROTIME WITH INR Stat Lab 05/13/21 16:25 Completed PTT Stat Lab 05/13/21 16:25 Completed UA W/RFX UR CULTURE Stat Lab 05/13/21 16:19 Completed Wet Prep Stat Lab 05/13/21 17:49 Completed Medication Summary Discontinued Medications Generic Name Dose Route Start Last Admin Trade Name Freq PRN Reason Stop Dose Admin Sodium Chloride 1,000 mls @ 999 mls/hr 05/13/21 15:59 05/13/21 16:40 Sodium Chloride 0.9% 1000 Ml IV 05/13/21 16:59 999 mls/hr .Q1H1M STA Administration Sodium Chloride Confirm 05/13/21 16:38 Sodium Chloride 0.9% 1000 Ml Administered 05/13/21 16:39 Dose 1,000 mls @ ud .ROUTE .STK-MED ONE Lab/Rad Data: Laboratory Result Diagrams 05/13/21 16:25 05/13/21 16:25 Laboratory Results 05/13/21 05/13/21 05/13/21 Range/Units 17:49 16:25 16:25 WBC (4.0-10.5) K/mm3 RBC (4.1-5.4) M/mm3 Hgb (12.0-16.0) gm/dl Hct (35-47) % MCV (78-100) fl MCH (26-32) pg MCHC (32-36) g/dl RDW (11.5-14.0) % Plt Count (150-450) K/mm3 MPV (7.5-11.0) fl Gran % (36.0-66.0) % Eos # (Auto) (0-0.5) Absolute Lymphs (auto) (1.0-4.6) Absolute Monos (auto) (0.0-1.3) Lymphocytes % (24.0-44.0) % Monocytes % (0.0-12.0) % Eosinophils % (0.00-5.0) % Basophils % (0.0-0.4) % Absolute Granulocytes (1.4-6.9) Basophils # (0-0.4) PT 11.1 (9.4-12.5) SECONDS INR 0.94 (0.8-3.0) APTT 28.6 (25.1-36.5) SECONDS Sodium 140 (137-145) mmol/L Potassium 3.5 (3.5-5.1) mmol/L Chloride 105 (98-107) mmol/L Carbon Dioxide 24 (22-30) mmol/L Anion Gap 14.1 (5-15) MEQ/L BUN 8 (7-17) mg/dL Creatinine 0.74 (0.52-1.04) mg/dL Estimated GFR > 60.0 ML/MIN Glucose 114 H (74-106) mg/dL Calcium 9.2 (8.4-10.2) mg/dL Total Bilirubin 0.50 (0.2-1.3) mg/dL AST 27 (14-36) U/L ALT 12 (0-35) U/L Alkaline Phosphatase 66 (38-126) U/L Serum Total Protein 7.8 (6.3-8.2) g/dL Albumin 4.4 (3.5-5.0) g/dL Urine Color (YELLOW) Urine Appearance (CLEAR) Urine pH (5-6) Ur Specific [place] (1.005-1.025) Urine Protein (Negative) Urine Ketones (NEGATIVE) Urine Blood (0-5) Russell/ul Urine Nitrite (NEGATIVE) Urine Bilirubin (NEGATIVE) Urine Urobilinogen (0-1) mg/dL Ur Leukocyte Esterase (NEGATIVE) Urine WBC (Auto) (0-5) /HPF Urine RBC (Auto) (0-2) /HPF U Epithel Cells (Auto) (FEW) /HPF Urine Bacteria (Auto) (NEGATIVE) /HPF Urine Culture Reflexed (NO) Urine Glucose (NEGATIVE) mg/dL Urine HCG, Qual (Negative) WBC (Wet Prep) Few RBC (Wet Prep) Many Epi Cells (Wet Prep) Few Bacteria (Wet Prep) Moderate Clue Cells (Wet Prep) None Seen Trichomonas (Wet Prep) None Seen Budding Yeast (Wet Prp) None Seen 05/13/21 05/13/21 05/13/21 Range/Units 16:25 16:19 16:19 WBC 9.9 (4.0-10.5) K/mm3 RBC 4.10 (4.1-5.4) M/mm3 Hgb 12.5 (12.0-16.0) gm/dl Hct 39.0 (35-47) % MCV 95.1 (78-100) fl MCH 30.5 (26-32) pg MCHC 32.1 (32-36) g/dl RDW 14.3 H (11.5-14.0) % Plt Count 316 (150-450) K/mm3 MPV 10.9 (7.5-11.0) fl Gran % 76.6 H (36.0-66.0) % Eos # (Auto) 0.07 (0-0.5) Absolute Lymphs (auto) 1.35 (1.0-4.6) Absolute Monos (auto) 0.87 (0.0-1.3) Lymphocytes % 13.6 L (24.0-44.0) % Monocytes % 8.8 (0.0-12.0) % Eosinophils % 0.7 (0.00-5.0) % Basophils % 0.3 (0.0-0.4) % Absolute Granulocytes 7.58 H (1.4-6.9) Basophils # 0.03 (0-0.4) PT (9.4-12.5) SECONDS INR (0.8-3.0) APTT (25.1-36.5) SECONDS Sodium (137-145) mmol/L Potassium (3.5-5.1) mmol/L Chloride (98-107) mmol/L Carbon Dioxide (22-30) mmol/L Anion Gap (5-15) MEQ/L BUN (7-17) mg/dL Creatinine (0.52-1.04) mg/dL Estimated GFR ML/MIN Glucose (74-106) mg/dL Calcium (8.4-10.2) mg/dL Total Bilirubin (0.2-1.3) mg/dL AST (14-36) U/L ALT (0-35) U/L Alkaline Phosphatase (38-126) U/L Serum Total Protein (6.3-8.2) g/dL Albumin (3.5-5.0) g/dL Urine Color RED (YELLOW) Urine Appearance TURBID (CLEAR) Urine pH 7.0 (5-6) Ur Specific [place] 1.010 (1.005-1.025) Urine Protein >=500 (Negative) Urine Ketones NEGATIVE (NEGATIVE) Urine Blood LARGE (0-5) Russell/ul Urine Nitrite POSITIVE (NEGATIVE) Urine Bilirubin NEGATIVE (NEGATIVE) Urine Urobilinogen NEGATIVE (0-1) mg/dL Ur Leukocyte Esterase NEGATIVE (NEGATIVE) Urine WBC (Auto) >100 (0-5) /HPF Urine RBC (Auto) >101 (0-2) /HPF U Epithel Cells (Auto) NONE (FEW) /HPF Urine Bacteria (Auto) MANY (NEGATIVE) /HPF Urine Culture Reflexed YES (NO) Urine Glucose NEGATIVE (NEGATIVE) mg/dL Urine HCG, Qual NEGATIVE (Negative) WBC (Wet Prep) RBC (Wet Prep) Epi Cells (Wet Prep) Bacteria (Wet Prep) Clue Cells (Wet Prep) Trichomonas (Wet Prep) Budding Yeast (Wet Prp) - Progress Progress: improved Air Movement: good Progress Note: Patient reassessed. She feels well. No active vaginal bleeding. Labs are within normal limits. Ultrasound revealed a uterine fibroid. I contacted Dr. Dumont. He states that he cannot discuss this patient due to insurance issues. Patient will need to find another OB. Will discharge patient home. Patient will find an OB to follow-up with. She can also follow-up with her family doctor. Plan of care discussed with patient. She voices no other complaints or concerns at this time. She will follow-up within 48 hours with a primary care doctor. Portions of this note were created with voice recognition technology. There may be grammatical, spelling, punctuation or sound alike errors 05/13/21 18:30 A prescription for Macrobid was provided to patient to treat UTI 05/13/21 18:33 Blood Culture(s) Obtained: No Antibiotics given: No Discussed with DrWill: Nabila Counseled pt/family regarding: lab results, diagnosis, need for follow-up, rad results - Departure Departure Disposition: Home Clinical Impression: UTI (urinary tract infection), Vaginal bleeding, Uterine fibroid Condition: Stable Critical Care Time: No Referrals: FRANCISCO SMALL NP [Primary Care Provider] - Additional Instructions: Discharge/Care Plan ENID CARTER was seen on 05/13/21 in the Emergency Room. The patient was counseled regarding Diagnosis,Lab results, Imaging studies, need for follow up and when to return to the Emergency Room. Prescriptions given: Discharge Note I have spoken with the patient and/or caregivers. I have explained the patient's condition, diagnosis and treatment plan based on the information available to me at this time. I have answered the patient's and/or caregiver's questions and addressed any concerns. The patient and/or caregivers have as good understanding of the patient's diagnosis, condition and treatment plan as can be expected at this point. The vital signs have been stable. The patient's condition is stable and appropriate for discharge from the emergency department. The patient will pursue further outpatient evaluation with the primary care physician or other designated or consulting physician as outlined in the discharge instructions. The patient and/or caregivers are agreeable to this plan of care and follow-up instructions have been explained in detail. The patient and/or caregivers have received these instruction. The patient/and or caregivers are aware that any significant change in condition or worsening of symptoms should prompt an immediate return to this or the closest emergency department or call 911. Prescriptions: Nitrofurantoin Macro 100 mg [Macrobid 100MG Capsule] 100 mg PO BID 7 Days #14 cap
[2021-05-13 16:37] LABS: INR 0.94 (0.8-3.0); PROTIME 11.1 SECONDS (9.4-12.5)
[2021-05-13] MEDS ORDERED: Sodium Chloride 0.9% 1000 ML 1,000 ML ONE (16:38)
[2021-05-13 16:40] LABS: ALBUMIN 4.4 g/dL (3.5-5.0); ALKALINE PHOSPHATASE 66 U/L (38-126); ANION GAP 14.1 MEQ/L (5-15); BLOOD UREA NITROGEN 8 mg/dL (7-17); CHLORIDE 105 mmol/L (98-107); Calcium 9.2 mg/dL (8.4-10.2); Carbon Dioxide 24 mmol/L (22-30); Creatinine 1 0.74 mg/dL (0.52-1.04); EST GLOMERULAR FILTRATION RATE > 60.0 ML/MIN; Glucose 114 mg/dL (74-106); PTT 28.6 SECONDS (25.1-36.5); Potassium 3.5 mmol/L (3.5-5.1); SGOT/AST 27 U/L (14-36); SGPT/ALT 12 U/L (0-35); SODIUM 140 mmol/L (137-145); Total Protein 7.8 g/dL (6.3-8.2)
[2021-05-13 16:59] LABS: Appearance TURBID (CLEAR); Bacteria MANY /HPF (NEGATIVE); Bilirubin NEGATIVE (NEGATIVE); Blood LARGE Ery/ul (0-5); Glucose NEGATIVE (NEGATIVE); Ketones NEGATIVE (NEGATIVE); Leukocyte Esterase NEGATIVE (NEGATIVE); Nitrite POSITIVE (NEGATIVE); Protein,Urine Dip >=500 (Negative); Urobilinogen NEGATIVE mg/dL (0-1); WBC >100 /HPF (0-5)
[2021-05-13 17:00] LABS: RBC >101 /HPF (0-2)
--- NOTE | 2021-05-13 17:05 | XRAY ---
Indication: Pain and bleeding. Two-dimensional transabdominal pelvic sonogram performed. Comparison: February 16, 2020. Urinary bladder not adequately distended producing poor acoustic window. Uterus remains anteverted measuring 9.6 x 5.8 x 2.1 cm. Fundus demonstrates new 1.6 x 1.2 x 1.6 cm left-sided submucosal fibroid. No other focal solid/cystic uterine mass. Endometrial stripe measures 9 mm. No endometrial cavity mass or fluid collection. Right ovary measures 3.9 x 2.4 x 3.7 cm with normal perfusion and incidental 2.3 cm cyst. Left ovary not seen. No suspicious adnexal mass or free fluid. Impression: New finding small uterine fibroid. Nonvisualization left ovary. Remaining transabdominal pelvic sonogram is negative.
[2021-05-13 17:19] LABS: Absolute Neutrophil Ct (ANC) 7.58 (1.4-6.9); BASOPHIL % 0.3 % (0.0-0.4); Basophil (Absolute #) 0.03 (0-0.4); Eosinophil % 0.7 % (0.00-5.0); Eosinophil (Absolute #) 0.07 (0-0.5); Hemoglobin 12.5 gm/dl (12.0-16.0); Lymphocyte (Absolute #) 1.35 (1.0-4.6); Lymphocytes % 13.6 % (24.0-44.0); Mean Cell Volume 95.1 fl (78-100); Mean Corpuscular Hemoglobin 30.5 pg (26-32); Mean Corpuscular Hgb Concent. 32.1 g/dl (32-36); Mean Platelet Volume 10.9 fl (7.5-11.0); Monocyte (Absolute #) 0.87 (0.0-1.3); Monocytes % 8.8 % (0.0-12.0); Neutrophil % 76.6 % (36.0-66.0); Platelet Count 316 K/mm3 (150-450); Red Cell Distribution Width 14.3 % (11.5-14.0); White Blood Count 9.9 K/mm3 (4.0-10.5)
[2021-05-13 18:04] LABS: Clue Cells None Seen
[2021-05-13 18:05] LABS: Bacteria Moderate; Red Blood Cells Many; Trichomonas None Seen; White Blood Cells Few; Yeast None Seen
[2021-05-13 18:37] VITALS: BP 142/81; PULSE 98; O2SAT 99
[2021-05-13 19:04] LABS: CHLAMYDIA DNA NOT DETECTED (NEGATIVE); GC DNA Probe NOT DETECTED (NEGATIVE)
== END 2021-05-13 18:45 | disposition home or self-care (01) ==
LOC: ED 15:25
DX: N39.0 Urinary tract infection, site not specified (principal); N93.9 Abnormal uterine and vaginal bleeding, unspecified; D25.9 Leiomyoma of uterus, unspecified
CPT/HCPCS: 36000; 36415; 76856; 80053; 81001; 84703; 85025; 85610; 85730; 87086; 87210; 87491; 87591; 93041; 94760; 99284

== ENCOUNTER 2021-05-29 11:14 | Emergency (ER) | payer OTHER ==
--- NOTE | 2021-05-29 11:24 | ERPHSYRPT ---
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 She feels that her legs are heavy. She denies chest pain. She has a mild cough. She does not feel short of breath. She was recently seen in the emergency department (05/13/2021) and diagnosed with a urinary tract infection, ultrasound verified uterine fibroids and vaginal bleeding. She has had a follow-up with this. She has no more significant vaginal bleeding since that time. This past Wednesday, prior to this evaluation, patient was diagnosed with COVID-19 infection. Initially, she stated that she did not feel too bad. However, in the last couple days she has not been eating or drinking well. She has had diarrheal stools at least three very loose stools over the last 48 hours. Patient has no significant abdominal pain. Patient has a history of anxiety, panic disorder, Raynaud's, and SVT. Timing/Duration: yesterday Severity: moderate Associated Symptoms: cough, loss of appetite, malaise, weakness, No nausea, No vomiting, No abdominal pain, No shortness of breath, No chest pain Allergies/Adverse Reactions: citalopram hydrobromide [From Celexa] Adverse Reaction (Verified 05/29/21 11:20) Hx Tetanus, Diphtheria Vaccination/Date Given: Yes Hx Influenza Vaccination/Date Given: No Hx Pneumococcal Vaccination/Date Given: No Travel Risk - International Travel Have you traveled outside of the country in past 3 weeks: No - Coronavirus Screening Are you exhibiting any of the following symptoms?: Yes Symptoms: Fever, Cough: New Onset, Headaches/Body Aches/Fatigue Close contact with a COVID-19 positive Pt in past 14-21 Days: Yes - Vaccine Status Have you recieved a Covid-19 vaccination: No - Review of Systems Constitutional: Weakness Eyes: No Symptoms Ears, Nose, & Throat: No Symptoms Respiratory: Cough Cardiac: No Symptoms Abdominal/Gastrointestinal: Diarrhea, No Abdominal Pain, No Nausea, No Vomiting, No Constipation Genitourinary Symptoms: No Symptoms Musculoskeletal: No Symptoms Skin: No Symptoms Neurological: No Symptoms Psychological: No Symptoms Endocrine: No Symptoms Hematologic/Lymphatic: No Symptoms Immunological/Allergic: No Symptoms All Other Systems: Reviewed and Negative - Past Medical History Pertinent Past Medical History: Yes Neurological History: No Pertinent History ENT History: No Pertinent History Cardiac History: Arrhythmia Respiratory History: No Pertinent History Endocrine Medical History: No Pertinent History Musculoskeletal History: Other GI Medical History: No Pertinent History History: No Pertinent History Psycho-Social History: Anxiety, Panic Disorder Female Reproductive Disorders: No Pertinent History Other Medical History: raynauds. SVT - Past Surgical History Past Surgical History: Yes Female Surgical History: Section Other Surgical History: tonsillectomy, 2 C-sections in the past - Social History Smoking Status: Never smoker Exposure to second hand smoke: No Drug Use: none Patient Lives Alone: Yes - Nursing Vital Signs Nursing Vital Signs: Initial Vital Signs Pulse Rate 116 H 05/29/21 11:21 Respiratory Rate 18 05/29/21 11:21 Blood Pressure 178/106 05/29/21 11:21 O2 Sat by Pulse Oximetry 99 05/29/21 11:21 Pain Scale Pain Intensity 0 - Physical Exam General Appearance: no apparent distress, alert, anxiety, thin Eye Exam: PERRL/EOMI, eyes nml inspection Ears, Nose, Throat Exam: normal ENT inspection, moist mucous membranes Neck Exam: normal inspection, non-tender, supple, full range of motion Respiratory Exam: normal breath sounds, lungs clear, airway intact, No chest tenderness, No respiratory distress Cardiovascular Exam: normal peripheral pulses, tachycardia Gastrointestinal/Abdomen Exam: soft, normal bowel sounds, No tenderness, No guarding Pelvic Exam: not done Rectal Exam: not done Back Exam: normal inspection, normal range of motion, No CVA tenderness, No vertebral tenderness Extremity Exam: normal inspection, normal range of motion, pelvis stable Neurologic Exam: alert, oriented x 3, 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, 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, normal mood/affect, nml cerebellar function, nml station & gait, sensation nml Skin Exam: normal color, warm, dry Lymphatic Exam: No adenopathy SpO2 Interpretation: normal O2 Delivery: Room Air - Course Nursing assessment & vital signs reviewed: Yes Ordered Tests: Active Orders 24 hr Category Date Time Status EKG-ER Only STAT Care 05/29/21 11:23 Active IV Insertion STAT Care 05/29/21 11:23 Active CBC W DIFF Stat Lab 05/29/21 11:40 Completed CMP Stat Lab 05/29/21 11:40 Completed INFLUENZA A+B BEBETO Stat Lab 05/29/21 11:55 Completed Lactic Acid Stat Lab 05/29/21 12:00 Completed MAGNESIUM Stat Lab 05/29/21 11:40 Completed [place] Screen Stat Lab 05/29/21 11:40 Completed TROPONIN Q3H Lab 05/29/21 11:40 Completed TROPONIN Q3H Lab 05/29/21 14:30 Ordered TROPONIN Q3H Lab 05/29/21 17:30 Ordered TROPONIN Q3H Lab 05/29/21 20:30 Ordered TROPONIN Q3H Lab 05/29/21 23:30 Ordered UA W/RFX UR CULTURE Stat Lab 05/29/21 11:30 Completed Medication Summary Discontinued Medications Generic Name Dose Route Start Last Admin Trade Name Freq PRN Reason Stop Dose Admin Sodium Chloride 1,000 mls @ 999 mls/hr 05/29/21 11:32 05/29/21 11:42 Sodium Chloride 0.9% 1000 Ml IV 05/29/21 12:32 999 mls/hr .Q1H1M STA Administration Sodium Chloride Confirm 05/29/21 11:32 Sodium Chloride 0.9% 1000 Ml Administered 05/29/21 11:33 Dose 1,000 mls @ ud .ROUTE .STK-MED ONE Ondansetron HCl 4 mg 05/29/21 11:32 Zofran 4 Mg/2 Ml Vial IV 05/29/21 11:33 STAT ONE Ondansetron HCl Confirm 05/29/21 11:32 Zofran 4 Mg/2 Ml Vial Administered 05/29/21 11:33 Dose 4 mg .ROUTE .STK-MED ONE Lab/Rad Data: Laboratory Result Diagrams 05/29/21 11:40 05/29/21 11:40 Laboratory Results 05/29/21 05/29/21 05/29/21 Range/Units 12:00 11:55 11:40 WBC (4.0-10.5) K/mm3 RBC (4.1-5.4) M/mm3 Hgb (12.0-16.0) gm/dl Hct (35-47) % MCV (78-100) fl MCH (26-32) pg MCHC (32-36) g/dl RDW (11.5-14.0) % Plt Count (150-450) K/mm3 MPV (7.5-11.0) fl Gran % (36.0-66.0) % Eos # (Auto) (0-0.5) Absolute Lymphs (auto) (1.0-4.6) Absolute Monos (auto) (0.0-1.3) Lymphocytes % (24.0-44.0) % Monocytes % (0.0-12.0) % Eosinophils % (0.00-5.0) % Basophils % (0.0-0.4) % Absolute Granulocytes (1.4-6.9) Basophils # (0-0.4) Sodium (137-145) mmol/L Potassium (3.5-5.1) mmol/L Chloride (98-107) mmol/L Carbon Dioxide (22-30) mmol/L Anion Gap (5-15) MEQ/L BUN (7-17) mg/dL Creatinine (0.52-1.04) mg/dL Estimated GFR ML/MIN Glucose (74-106) mg/dL Lactic Acid 1.6 (0.4-2.0) Calcium (8.4-10.2) mg/dL Magnesium (1.6-2.3) mg/dL Total Bilirubin (0.2-1.3) mg/dL AST (14-36) U/L ALT (0-35) U/L Alkaline Phosphatase (38-126) U/L Troponin I (0.000-0.034) ng/mL Serum Total Protein (6.3-8.2) g/dL Albumin (3.5-5.0) g/dL Urine Color (YELLOW) Urine Appearance (CLEAR) Urine pH (5-6) Ur Specific [place] (1.005-1.025) Urine Protein (Negative) Urine Ketones (NEGATIVE) Urine Blood (0-5) Russell/ul Urine Nitrite (NEGATIVE) Urine Bilirubin (NEGATIVE) Urine Urobilinogen (0-1) mg/dL Ur Leukocyte Esterase (NEGATIVE) Urine WBC (Auto) (0-5) /HPF Urine RBC (Auto) (0-2) /HPF U Epithel Cells (Auto) (FEW) /HPF Urine Bacteria (Auto) (NEGATIVE) /HPF Urine Culture Reflexed (NO) Urine Glucose (NEGATIVE) mg/dL Monoscreen NEGATIVE (Negative) Influenza Type A Ag NEGATIVE (NEGATIVE) Influenza Type B Ag NEGATIVE (NEGATIVE) 05/29/21 05/29/21 05/29/21 Range/Units 11:40 11:40 11:40 WBC 3.5 L (4.0-10.5) K/mm3 RBC 4.33 (4.1-5.4) M/mm3 Hgb 13.0 (12.0-16.0) gm/dl Hct 40.7 (35-47) % MCV 94.0 (78-100) fl MCH 30.0 (26-32) pg MCHC 31.9 L (32-36) g/dl RDW 13.9 (11.5-14.0) % Plt Count 256 (150-450) K/mm3 MPV 9.7 (7.5-11.0) fl Gran % 51.9 (36.0-66.0) % Eos # (Auto) 0.06 (0-0.5) Absolute Lymphs (auto) 1.03 (1.0-4.6) Absolute Monos (auto) 0.58 (0.0-1.3) Lymphocytes % 29.5 (24.0-44.0) % Monocytes % 16.6 H (0.0-12.0) % Eosinophils % 1.7 (0.00-5.0) % Basophils % 0.3 (0.0-0.4) % Absolute Granulocytes 1.81 (1.4-6.9) Basophils # 0.01 (0-0.4) Sodium 140 (137-145) mmol/L Potassium 3.8 (3.5-5.1) mmol/L Chloride 105 (98-107) mmol/L Carbon Dioxide 25 (22-30) mmol/L Anion Gap 14.2 (5-15) MEQ/L BUN 7 (7-17) mg/dL Creatinine 0.66 (0.52-1.04) mg/dL Estimated GFR > 60.0 ML/MIN Glucose 96 (74-106) mg/dL Lactic Acid (0.4-2.0) Calcium 9.3 (8.4-10.2) mg/dL Magnesium 2.1 (1.6-2.3) mg/dL Total Bilirubin 0.50 (0.2-1.3) mg/dL AST 27 (14-36) U/L ALT 14 (0-35) U/L Alkaline Phosphatase 58 (38-126) U/L Troponin I < 0.012 (0.000-0.034) ng/mL Serum Total Protein 7.5 (6.3-8.2) g/dL Albumin 4.4 (3.5-5.0) g/dL Urine Color (YELLOW) Urine Appearance (CLEAR) Urine pH (5-6) Ur Specific [place] (1.005-1.025) Urine Protein (Negative) Urine Ketones (NEGATIVE) Urine Blood (0-5) Russell/ul Urine Nitrite (NEGATIVE) Urine Bilirubin (NEGATIVE) Urine Urobilinogen (0-1) mg/dL Ur Leukocyte Esterase (NEGATIVE) Urine WBC (Auto) (0-5) /HPF Urine RBC (Auto) (0-2) /HPF U Epithel Cells (Auto) (FEW) /HPF Urine Bacteria (Auto) (NEGATIVE) /HPF Urine Culture Reflexed (NO) Urine Glucose (NEGATIVE) mg/dL Monoscreen (Negative) Influenza Type A Ag (NEGATIVE) Influenza Type B Ag (NEGATIVE) 05/29/21 Range/Units 11:30 WBC (4.0-10.5) K/mm3 RBC (4.1-5.4) M/mm3 Hgb (12.0-16.0) gm/dl Hct (35-47) % MCV (78-100) fl MCH (26-32) pg MCHC (32-36) g/dl RDW (11.5-14.0) % Plt Count (150-450) K/mm3 MPV (7.5-11.0) fl Gran % (36.0-66.0) % Eos # (Auto) (0-0.5) Absolute Lymphs (auto) (1.0-4.6) Absolute Monos (auto) (0.0-1.3) Lymphocytes % (24.0-44.0) % Monocytes % (0.0-12.0) % Eosinophils % (0.00-5.0) % Basophils % (0.0-0.4) % Absolute Granulocytes (1.4-6.9) Basophils # (0-0.4) Sodium (137-145) mmol/L Potassium (3.5-5.1) mmol/L Chloride (98-107) mmol/L Carbon Dioxide (22-30) mmol/L Anion Gap (5-15) MEQ/L BUN (7-17) mg/dL Creatinine (0.52-1.04) mg/dL Estimated GFR ML/MIN Glucose (74-106) mg/dL Lactic Acid (0.4-2.0) Calcium (8.4-10.2) mg/dL Magnesium (1.6-2.3) mg/dL Total Bilirubin (0.2-1.3) mg/dL AST (14-36) U/L ALT (0-35) U/L Alkaline Phosphatase (38-126) U/L Troponin I (0.000-0.034) ng/mL Serum Total Protein (6.3-8.2) g/dL Albumin (3.5-5.0) g/dL Urine Color STRAW (YELLOW) Urine Appearance CLEAR (CLEAR) Urine pH 6.0 (5-6) Ur Specific [place] 1.000 (1.005-1.025) Urine Protein NEGATIVE (Negative) Urine Ketones NEGATIVE (NEGATIVE) Urine Blood SMALL (0-5) Russell/ul Urine Nitrite NEGATIVE (NEGATIVE) Urine Bilirubin NEGATIVE (NEGATIVE) Urine Urobilinogen NEGATIVE (0-1) mg/dL Ur Leukocyte Esterase NEGATIVE (NEGATIVE) Urine WBC (Auto) NONE (0-5) /HPF Urine RBC (Auto) NONE (0-2) /HPF U Epithel Cells (Auto) NONE (FEW) /HPF Urine Bacteria (Auto) NONE (NEGATIVE) /HPF Urine Culture Reflexed NO (NO) Urine Glucose NEGATIVE (NEGATIVE) mg/dL Monoscreen (Negative) Influenza Type A Ag (NEGATIVE) Influenza Type B Ag (NEGATIVE) - Progress Progress: unchanged Counseled pt/family regarding: lab results, diagnosis, need for follow-up - Departure Departure Disposition: Home Clinical Impression: Viral illness Condition: Stable Critical Care Time: No Referrals: FRANCISCO CHEN NP [Primary Care Provider] - Additional Instructions: Drink plenty of fluids. Continue quarantine yourself for the remainder of the scheduled quarantine time. Call your nurse practitioner today to make arrangements for follow-up appointment on 06/02/2021. Return to the emergency department if your symptoms worsen
[2021-05-29] MEDS ORDERED: Zofran 4 MG/2 ML VIAL IV ONE (11:32)
[2021-05-29] MEDS ORDERED: Sodium Chloride 0.9% 1000 ML 1,000 ML IV STA (11:32)
[2021-05-29] MEDS ORDERED: Zofran 4 MG/2 ML VIAL ONE (11:32)
[2021-05-29] MEDS ORDERED: Sodium Chloride 0.9% 1000 ML 1,000 ML ONE (11:32)
[2021-05-29 11:44] LABS: Absolute Neutrophil Ct (ANC) 1.81 (1.4-6.9); BASOPHIL % 0.3 % (0.0-0.4); Basophil (Absolute #) 0.01 (0-0.4); Eosinophil % 1.7 % (0.00-5.0); Eosinophil (Absolute #) 0.06 (0-0.5); Hematocrit 40.7 % (35-47); Lymphocyte (Absolute #) 1.03 (1.0-4.6); Lymphocytes % 29.5 % (24.0-44.0); Mean Corpuscular Hgb Concent. 31.9 g/dl (32-36); Mean Platelet Volume 9.7 fl (7.5-11.0); Monocyte (Absolute #) 0.58 (0.0-1.3); Monocytes % 16.6 % (0.0-12.0); Neutrophil % 51.9 % (36.0-66.0); Platelet Count 256 K/mm3 (150-450); Red Blood Count 4.33 M/mm3 (4.1-5.4); Red Cell Distribution Width 13.9 % (11.5-14.0); White Blood Count 3.5 K/mm3 (4.0-10.5)
[2021-05-29 11:51] LABS: Appearance CLEAR (CLEAR); Bilirubin NEGATIVE (NEGATIVE); Blood SMALL Ery/ul (0-5); Glucose NEGATIVE (NEGATIVE); Ketones NEGATIVE (NEGATIVE); Leukocyte Esterase NEGATIVE (NEGATIVE); Nitrite NEGATIVE (NEGATIVE); Protein,Urine Dip NEGATIVE (Negative); Urobilinogen NEGATIVE mg/dL (0-1)
[2021-05-29 12:06] LABS: ALBUMIN 4.4 g/dL (3.5-5.0); ALKALINE PHOSPHATASE 58 U/L (38-126); ANION GAP 14.2 MEQ/L (5-15); BLOOD UREA NITROGEN 7 mg/dL (7-17); CHLORIDE 105 mmol/L (98-107); Calcium 9.3 mg/dL (8.4-10.2); Carbon Dioxide 25 mmol/L (22-30); Creatinine 1 0.66 mg/dL (0.52-1.04); EST GLOMERULAR FILTRATION RATE > 60.0 ML/MIN; Glucose 96 mg/dL (74-106); MAGNESIUM 2.1 mg/dL (1.6-2.3); Potassium 3.8 mmol/L (3.5-5.1); SGOT/AST 27 U/L (14-36); SGPT/ALT 14 U/L (0-35); SODIUM 140 mmol/L (137-145); Total Protein 7.5 g/dL (6.3-8.2)
[2021-05-29 12:22] LABS: INFLUENZA A NEGATIVE (NEGATIVE); INFLUENZA B NEGATIVE (NEGATIVE)
[2021-05-29 13:39] VITALS: BP 161/96; PULSE 77; O2SAT 97
[2021-05-29 14:14] LABS: T4 (Thyroxine) 11.9 ug/dL (5.53-10.96); TSH, 3RD Generation 0.93 mIU/L (0.47-4.68)
== END 2021-05-29 13:49 | disposition home or self-care (01) ==
LOC: ED 11:14
DX: B34.9 Viral infection, unspecified (principal); R50.9 Fever, unspecified; R53.83 Other fatigue; R05 Cough; R53.81 Other malaise; R51.9 Headache, unspecified; R19.7 Diarrhea, unspecified
CPT/HCPCS: 36000; 36415; 80053; 81001; 83605; 83735; 84436; 84443; 84484; 85025; 86308; 87400; 93005; 96360; 99284; J2405

== ENCOUNTER 2021-12-31 07:15 | Observation (INO) | payer OTHER ==
[2021-12-31] MEDS ORDERED: Cardizem IV 50 MG/10 ML IV ONE ×2 (07:23→07:29)
[2021-12-31] MEDS ORDERED: Ativan 2 MG/1 ML VIAL ONE ×2 (07:27→12:07)
[2021-12-31] MEDS ORDERED: Sodium Chloride 0.9% 1000 ML 1,000 ML ONE (07:28)
[2021-12-31] MEDS ORDERED: Ativan 2 MG/1 ML VIAL IV ONE ×2 (07:29→11:29)
[2021-12-31] MEDS ORDERED: Sodium Chloride 0.9% 1000 ML 1,000 ML IV STA (07:30)
[2021-12-31 07:58] LABS: Absolute Neutrophil Ct (ANC) 3.55 (1.4-6.9); Basophil (Absolute #) 0.03 (0-0.4); Eosinophil % 3.4 % (0.00-5.0); Eosinophil (Absolute #) 0.25 (0-0.5); Hemoglobin 13.7 gm/dl (12.0-16.0); Lymphocytes % 35.6 % (24.0-44.0); Mean Cell Volume 91.3 fl (78-100); Mean Corpuscular Hemoglobin 29.1 pg (26-32); Mean Corpuscular Hgb Concent. 31.9 g/dl (32-36); Mean Platelet Volume 10.7 fl (7.5-11.0); Monocyte (Absolute #) 0.87 (0.0-1.3); Monocytes % 11.9 % (0.0-12.0); Neutrophil % 48.7 % (36.0-66.0); Platelet Count 332 K/mm3 (150-450); Red Blood Count 4.71 M/mm3 (4.1-5.4); Red Cell Distribution Width 14.9 % (11.5-14.0); White Blood Count 7.3 K/mm3 (4.0-10.5)
[2021-12-31 08:04] LABS: INR 1.02 (0.8-3.0)
[2021-12-31 08:07] LABS: PTT 31.5 SECONDS (25.1-36.5)
[2021-12-31 08:22] LABS: ALBUMIN 4.8 g/dL (3.5-5.0); ALKALINE PHOSPHATASE 65 U/L (38-126); ANION GAP 17.9 MEQ/L (5-15); BLOOD UREA NITROGEN 14 mg/dL (7-17); CHLORIDE 106 mmol/L (98-107); Calcium 9.5 mg/dL (8.4-10.2); Carbon Dioxide 22 mmol/L (22-30); Creatinine 1 0.75 mg/dL (0.52-1.04); EST GLOMERULAR FILTRATION RATE > 60.0 ML/MIN; Glucose 115 mg/dL (74-106); NT PRO BNP 60.5 pg/mL (0-450); Potassium 3.3 mmol/L (3.5-5.1); SGOT/AST 34 U/L (14-36); SGPT/ALT 17 U/L (0-35); SODIUM 142 mmol/L (137-145); Total Protein 8.7 g/dL (6.3-8.2)
--- NOTE | 2021-12-31 08:23 | ERPHSYRPT ---
- History of Present Illness Historian: patient Exam Limitations: no limitations Patient Subjective Stated Complaint: Pt states "I started to have palpitations and they put me on metoprolol on wednesday and my blood pressure increased so they put me on amlodipine and my heart is now racing every now and then." Triage Nursing Assessment: Pt presented alert and oriented X 3, skin pwd Pt ambulates with an upright steady gait, able to speak in clear full sentences. PT extremely anxious. PT has shaking. Physician History: 51 yo wf w h/o tachycardia presents w tachycardia w HR in 140-150's beginning at 6:00AM after she got up. Pt takes 50mg Toprol XL daily and was recently started on Norvasc 2.5mg in addition to Toprol. She has dyspnea and mid-sternal chest pain which she describes as "heaviness" and rated 6/10 on scale. Pt has HTN but denies DM/hyperlipidemia/tobacco use/drug use/CAD-SC/N/V/D/Melena/hematochezia. Timing/Duration: other (6:30AM) Quality: other (Heaviness) Location: substernal Chest Pain Radiation: no radiation Severity of Pain-Max: moderate Severity of Pain-Current: mild Associated Symptoms: shortness of breath, No nausea, No vomiting, No palp itations, No heartburn, No abdominal pain, No cough, No hurts to breathe, No diaphoresis, No chills, No fever, No fatigue, No weakness, No swelling/lump in chest, No syncope, No rash, No headache, No dizziness, No edema, No back pain Nitro Today/Relief: no nitro taken today Aspirin Treatment Today: no aspirin today Allergies/Adverse Reactions: citalopram hydrobromide [From Celexa] Adverse Reaction (Verified 12/31/21 16:02) Home Medications: Amlodipine Besylate 2.5 mg PO HS 12/31/21 [History] Metoprolol Succinate 50 mg [Toprol Xl 50 MG] 50 mg PO HS 12/31/21 [History] Hx Tetanus, Diphtheria Vaccination/Date Given: Yes Hx Influenza Vaccination/Date Given: No Hx Pneumococcal Vaccination/Date Given: No Immunizations Up to Date: Yes Travel Risk - International Travel Have you traveled outside of the country in past 3 weeks: No - Coronavirus Screening Are you exhibiting any of the following symptoms?: No Close contact with a COVID-19 positive Pt in past 14-21 Days: No - Vaccine Status Have you recieved a Covid-19 vaccination: No - Review of Systems Constitutional: No Symptoms Eyes: No Symptoms Ears, Nose, & Throat: No Symptoms Respiratory: No Symptoms, Dyspnea Cardiac: No Symptoms, Chest Pain Abdominal/Gastrointestinal: No Symptoms Genitourinary Symptoms: No Symptoms Musculoskeletal: No Symptoms Skin: No Symptoms Neurological: No Symptoms Psychological: No Symptoms Endocrine: No Symptoms Hematologic/Lymphatic: No Symptoms Immunological/Allergic: No Symptoms - Past Medical History Pertinent Past Medical History: Yes Neurological History: No Pertinent History ENT History: No Pertinent History Cardiac History: Arrhythmia Respiratory History: No Pertinent History Endocrine Medical History: No Pertinent History Musculoskeletal History: Other GI Medical History: No Pertinent History History: No Pertinent History Psycho-Social History: Anxiety, Panic Disorder Female Reproductive Disorders: No Pertinent History Other Medical History: raynauds. SVT - Past Surgical History Past Surgical History: Yes Female Surgical History: Section Other Surgical History: tonsillectomy, 2 C-sections in the past - Social History Smoking Status: Never smoker Exposure to second hand smoke: No Drug Use: none Patient Lives Alone: Yes Significant Family History: no pertinent family hx - Female History Hx Last Menstrual Period: menopause Hx Now: No - Nursing Vital Signs Nursing Vital Signs: Initial Vital Signs Temperature 97.5 F 12/31/21 07:18 Pulse Rate 133 H 12/31/21 07:18 Respiratory Rate 22 12/31/21 07:18 Blood Pressure 177/93 12/31/21 07:18 O2 Sat by Pulse Oximetry 100 12/31/21 07:18 Pain Scale Pain Intensity 0 Hypertensive/Tachycardic - Physical Exam General Appearance: mild distress, anxiety Eye Exam: PERRL/EOMI, eyes nml inspection Ears, Nose, Throat Exam: normal ENT inspection, TMs normal, pharynx normal Neck Exam: normal inspection, non-tender, supple, full range of motion, No meningismus, No mass, No Brudzinski, No Kernig's Respiratory Exam: normal breath sounds, lungs clear, airway intact Cardiovascular Exam: tachycardia (Very fast sinus tachycardia), capillary refill <2 sec Gastrointestinal/Abdomen Exam: soft, normal bowel sounds, No tenderness Back Exam: normal inspection, normal range of motion, No CVA tenderness, No vertebral tenderness Extremity Exam: normal inspection, normal range of motion Neurologic Exam: alert, oriented x 3, cooperative, 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, normal mood/affect, nml cerebellar function, nml station & gait, sensation nml Skin Exam: normal color, warm, dry Lymphatic Exam: No adenopathy SpO2: 100 O2 Delivery: Room Air - Course Nursing assessment & vital signs reviewed: Yes EKG Interpreted by Me: RATE (Sinus tach/R124/Prolonged QTc/No acute ST-Twave changes/EKG#2 NSR/Normal QT-QTc/No acute ST-Twave changes/Normal QT-QTc) - Radiology Exams Chest X-ray Interpretation: Interpreted by me (NAD) Ordered Tests: Active Orders 24 hr Category Date Time Status EKG-ER Only STAT Care 12/31/21 07:30 Completed EKG-ER Only STAT Care 12/31/21 10:45 Completed IV Insertion STAT Care 12/31/21 07:30 Completed Heart-Healthy Diet Diet 12/31/21 Dinner Active CHEST 1 VIEW (PORTABLE) Stat Exams 12/31/21 07:30 Completed CBC W DIFF Stat Lab 12/31/21 07:30 Completed CMP Stat Lab 12/31/21 07:30 Completed LIPID PROFILE AM.LAB Lab 01/01/22 04:00 Ordered NT PRO BNP Stat Lab 12/31/21 07:30 Completed PROTIME WITH INR Stat Lab 12/31/21 07:30 Completed PTT Stat Lab 12/31/21 07:30 Completed T4 (Thyroxine) Stat Lab 12/31/21 07:51 Completed TROPONIN Q3H Lab 12/31/21 07:30 Completed TROPONIN Q3H Lab 12/31/21 10:00 Completed TROPONIN Q3H Lab 12/31/21 11:47 Completed TROPONIN Q3H Lab 12/31/21 16:35 Completed TROPONIN Q3H Lab 12/31/21 19:45 Completed TSH [TSH, 3RD Generation] Stat Lab 12/31/21 07:51 Completed Urine Triage Profile Stat Lab 12/31/21 09:26 Completed Transfer Order Routine Transfer 12/31/21 Completed Medication Summary Generic Name Dose Route Start Last Admin Trade Name Freq PRN Reason Stop Dose Admin Acetaminophen 650 mg 12/31/21 14:30 Acetaminophen 325 Mg Tablet PO 01/30/22 14:29 Q4H PRN PRN PAIN AND/OR FEVER Al Hydrox/Mg Hydrox/Simethicone 30 ml 12/31/21 14:30 Mag Hydrox/Al Hydrox/Simeth 30 Ml Udcup PO 01/30/22 14:29 Q4H PRN PRN INDIGESTION Aspirin 325 mg 01/01/22 10:00 Aspirin 325 Mg Tablet.Ec PO 01/31/22 09:59 DAILY MIRELLA Enoxaparin Sodium 40 mg 12/31/21 17:00 12/31/21 16:41 Enoxaparin Sodium 40 Mg/0.4 Ml Syringe SQ 01/30/22 16:59 40 mg DAILY MIRELLA Administration Magnesium Hydroxide 30 - 60 ml 12/31/21 14:30 Magnesium Hydroxide 30 Ml Udcup PO 01/30/22 14:29 QDP PRN CONSTIPATION Metoprolol Succinate 50 mg 12/31/21 22:00 12/31/21 21:19 Metoprolol Succinate 50 Mg Tablet.Sa PO 01/30/22 21:59 50 mg HS MIRELLA Administration Metoprolol Succinate 25 mg 12/31/21 22:00 12/31/21 21:19 Metoprolol Succinate 25 Mg Xl Tab PO 01/30/22 21:59 25 mg HS MIRELLA Administration Ondansetron HCl 4 mg 12/31/21 14:30 Ondansetron Hcl 4 Mg/2 Ml Vial IV 01/30/22 14:29 Q4H PRN PRN NAUSEA/VOMITING Senna/Docusate Sodium 2 udtab 12/31/21 14:30 Senna/Docusate Sodium 1 Udtab Tablet PO 01/30/22 14:29 BID PRN PRN CONSTIPATION Discontinued Medications Generic Name Dose Route Start Last Admin Trade Name Freq PRN Reason Stop Dose Admin Aspirin 324 mg 12/31/21 10:44 12/31/21 10:50 Aspirin 81 Mg Tab.Chew PO 12/31/21 10:45 324 mg STAT ONE Administration Aspirin Confirm 12/31/21 10:50 Aspirin 81 Mg Tab.Chew Administered 12/31/21 10:51 Dose 324 mg .ROUTE .STK-MED ONE Diltiazem HCl Confirm 12/31/21 07:23 Diltiazem Hcl Iv 5 Mg/Ml Vial Administered 12/31/21 07:24 Dose 50 mg IV .STK-MED ONE Diltiazem HCl 15 mg 12/31/21 07:29 12/31/21 07:38 Diltiazem Hcl Iv 5 Mg/Ml Vial IV 12/31/21 07:30 15 mg STAT ONE Administration Sodium Chloride Confirm 12/31/21 07:28 Sodium Chloride 0.9% 1000 Ml Administered 12/31/21 07:29 Dose 1,000 mls @ ud .ROUTE .STK-MED ONE Sodium Chloride 1,000 mls @ 999 mls/hr 12/31/21 07:30 12/31/21 09:22 Sodium Chloride 0.9% 1000 Ml IV 12/31/21 08:30 Infused .Q1H1M STA Infusion Lorazepam Confirm 12/31/21 07:27 Lorazepam 2 Mg/1 Ml 2 Mg Vial Administered 12/31/21 07:28 Dose 2 mg .ROUTE .STK-MED ONE Lorazepam 1 mg 12/31/21 07:29 12/31/21 07:38 Lorazepam 2 Mg/1 Ml 2 Mg Vial IV 12/31/21 07:30 1 mg STAT ONE Administration Lorazepam 1 mg 12/31/21 11:29 12/31/21 12:10 Lorazepam 2 Mg/1 Ml 2 Mg Vial IV 12/31/21 11:30 1 mg STAT ONE Administration Lorazepam Confirm 12/31/21 12:07 Lorazepam 2 Mg/1 Ml 2 Mg Vial Administered 12/31/21 12:08 Dose 2 mg .ROUTE .STK-MED ONE Metoprolol Tartrate 50 mg 12/31/21 08:28 12/31/21 09:18 Metoprolol Tartrate 50 Mg Tablet PO 12/31/21 08:29 Not Given STAT ONE Metoprolol Tartrate 25 mg 12/31/21 09:09 12/31/21 09:13 Metoprolol Tartrate 25 Mg Tab PO 12/31/21 09:10 25 mg STAT ONE Administration Metoprolol Tartrate Confirm 12/31/21 09:09 Metoprolol Tartrate 25 Mg Tab Administered 12/31/21 09:10 Dose 25 mg .ROUTE .STK-MED ONE Lab/Rad Data: Laboratory Result Diagrams 12/31/21 07:30 12/31/21 07:30 Laboratory Results 12/31/21 12/31/21 12/31/21 Range/Units 14:40 11:47 10:00 WBC (4.0-10.5) K/mm3 RBC (4.1-5.4) M/mm3 Hgb (12.0-16.0) gm/dl Hct (35-47) % MCV (78-100) fl MCH (26-32) pg MCHC (32-36) g/dl RDW (11.5-14.0) % Plt Count (150-450) K/mm3 MPV (7.5-11.0) fl Gran % (36.0-66.0) % Eos # (Auto) (0-0.5) Absolute Lymphs (auto) (1.0-4.6) Absolute Monos (auto) (0.0-1.3) Lymphocytes % (24.0-44.0) % Monocytes % (0.0-12.0) % Eosinophils % (0.00-5.0) % Basophils % (0.0-0.4) % Absolute Granulocytes (1.4-6.9) Basophils # (0-0.4) PT (9.4-12.5) SECONDS INR (0.8-3.0) APTT (25.1-36.5) SECONDS Sodium (137-145) mmol/L Potassium (3.5-5.1) mmol/L Chloride (98-107) mmol/L Carbon Dioxide (22-30) mmol/L Anion Gap (5-15) MEQ/L BUN (7-17) mg/dL Creatinine (0.52-1.04) mg/dL Estimated GFR ML/MIN Glucose (74-106) mg/dL Calcium (8.4-10.2) mg/dL Total Bilirubin (0.2-1.3) mg/dL AST (14-36) U/L ALT (0-35) U/L Alkaline Phosphatase (38-126) U/L Troponin I 0.050 H* 0.049 H* (0.000-0.034) ng/mL NT-Pro-B Natriuret Pep (0-450) pg/mL Serum Total Protein (6.3-8.2) g/dL Albumin (3.5-5.0) g/dL Thyroxine (T4) (5.53-10.96) ug/dL TSH 3rd Generation (0.47-4.68) mIU/L Urine Opiates Level (NEGATIVE) Ur Methadone (NEGATIVE) Urine Barbiturates (NEGATIVE) Ur Phencyclidine (PCP) (NEGATIVE) Urine Amphetamine (NEGATIVE) U Benzodiazepine Level (NEGATIVE) Urine Cocaine (NEGATIVE) Urine Marijuana (THC) (NEGATIVE) Influenza Type A Ag NEGATIVE (NEGATIVE) Influenza Type B Ag NEGATIVE (NEGATIVE) RSV (PCR) NEGATIVE (Negative) SARS-CoV-2 (PCR) NEGATIVE (NEGATIVE) 12/31/21 12/31/21 12/31/21 Range/Units 09:26 07:51 07:51 WBC (4.0-10.5) K/mm3 RBC (4.1-5.4) M/mm3 Hgb (12.0-16.0) gm/dl Hct (35-47) % MCV (78-100) fl MCH (26-32) pg MCHC (32-36) g/dl RDW (11.5-14.0) % Plt Count (150-450) K/mm3 MPV (7.5-11.0) fl Gran % (36.0-66.0) % Eos # (Auto) (0-0.5) Absolute Lymphs (auto) (1.0-4.6) Absolute Monos (auto) (0.0-1.3) Lymphocytes % (24.0-44.0) % Monocytes % (0.0-12.0) % Eosinophils % (0.00-5.0) % Basophils % (0.0-0.4) % Absolute Granulocytes (1.4-6.9) Basophils # (0-0.4) PT (9.4-12.5) SECONDS INR (0.8-3.0) APTT (25.1-36.5) SECONDS Sodium (137-145) mmol/L Potassium (3.5-5.1) mmol/L Chloride (98-107) mmol/L Carbon Dioxide (22-30) mmol/L Anion Gap (5-15) MEQ/L BUN (7-17) mg/dL Creatinine (0.52-1.04) mg/dL Estimated GFR ML/MIN Glucose (74-106) mg/dL Calcium (8.4-10.2) mg/dL Total Bilirubin (0.2-1.3) mg/dL AST (14-36) U/L ALT (0-35) U/L Alkaline Phosphatase (38-126) U/L Troponin I (0.000-0.034) ng/mL NT-Pro-B Natriuret Pep (0-450) pg/mL Serum Total Protein (6.3-8.2) g/dL Albumin (3.5-5.0) g/dL Thyroxine (T4) 8.24 (5.53-10.96) ug/dL TSH 3rd Generation 1.090 (0.47-4.68) mIU/L Urine Opiates Level NEGATIVE (NEGATIVE) Ur Methadone NEGATIVE (NEGATIVE) Urine Barbiturates NEGATIVE (NEGATIVE) Ur Phencyclidine (PCP) NEGATIVE (NEGATIVE) Urine Amphetamine NEGATIVE (NEGATIVE) U Benzodiazepine Level NEGATIVE (NEGATIVE) Urine Cocaine NEGATIVE (NEGATIVE) Urine Marijuana (THC) NEGATIVE (NEGATIVE) Influenza Type A Ag (NEGATIVE) Influenza Type B Ag (NEGATIVE) RSV (PCR) (Negative) SARS-CoV-2 (PCR) (NEGATIVE) 12/31/21 12/31/21 12/31/21 Range/Units 07:30 07:30 07:30 WBC 7.3 (4.0-10.5) K/mm3 RBC 4.71 (4.1-5.4) M/mm3 Hgb 13.7 (12.0-16.0) gm/dl Hct 43.0 (35-47) % MCV 91.3 (78-100) fl MCH 29.1 (26-32) pg MCHC 31.9 L (32-36) g/dl RDW 14.9 H (11.5-14.0) % Plt Count 332 (150-450) K/mm3 MPV 10.7 (7.5-11.0) fl Gran % 48.7 (36.0-66.0) % Eos # (Auto) 0.25 (0-0.5) Absolute Lymphs (auto) 2.60 (1.0-4.6) Absolute Monos (auto) 0.87 (0.0-1.3) Lymphocytes % 35.6 (24.0-44.0) % Monocytes % 11.9 (0.0-12.0) % Eosinophils % 3.4 (0.00-5.0) % Basophils % 0.4 (0.0-0.4) % Absolute Granulocytes 3.55 (1.4-6.9) Basophils # 0.03 (0-0.4) PT 12.0 (9.4-12.5) SECONDS INR 1.02 (0.8-3.0) APTT 31.5 (25.1-36.5) SECONDS Sodium 142 (137-145) mmol/L Potassium 3.3 L (3.5-5.1) mmol/L Chloride 106 (98-107) mmol/L Carbon Dioxide 22 (22-30) mmol/L Anion Gap 17.9 H (5-15) MEQ/L BUN 14 (7-17) mg/dL Creatinine 0.75 (0.52-1.04) mg/dL Estimated GFR > 60.0 ML/MIN Glucose 115 H (74-106) mg/dL Calcium 9.5 (8.4-10.2) mg/dL Total Bilirubin 0.80 (0.2-1.3) mg/dL AST 34 (14-36) U/L ALT 17 (0-35) U/L Alkaline Phosphatase 65 (38-126) U/L Troponin I (0.000-0.034) ng/mL NT-Pro-B Natriuret Pep 60.5 (0-450) pg/mL Serum Total Protein 8.7 H (6.3-8.2) g/dL Albumin 4.8 (3.5-5.0) g/dL Thyroxine (T4) (5.53-10.96) ug/dL TSH 3rd Generation (0.47-4.68) mIU/L Urine Opiates Level (NEGATIVE) Ur Methadone (NEGATIVE) Urine Barbiturates (NEGATIVE) Ur Phencyclidine (PCP) (NEGATIVE) Urine Amphetamine (NEGATIVE) U Benzodiazepine Level (NEGATIVE) Urine Cocaine (NEGATIVE) Urine Marijuana (THC) (NEGATIVE) Influenza Type A Ag (NEGATIVE) Influenza Type B Ag (NEGATIVE) RSV (PCR) (Negative) SARS-CoV-2 (PCR) (NEGATIVE) 12/31/21 Range/Units 07:30 WBC (4.0-10.5) K/mm3 RBC (4.1-5.4) M/mm3 Hgb (12.0-16.0) gm/dl Hct (35-47) % MCV (78-100) fl MCH (26-32) pg MCHC (32-36) g/dl RDW (11.5-14.0) % Plt Count (150-450) K/mm3 MPV (7.5-11.0) fl Gran % (36.0-66.0) % Eos # (Auto) (0-0.5) Absolute Lymphs (auto) (1.0-4.6) Absolute Monos (auto) (0.0-1.3) Lymphocytes % (24.0-44.0) % Monocytes % (0.0-12.0) % Eosinophils % (0.00-5.0) % Basophils % (0.0-0.4) % Absolute Granulocytes (1.4-6.9) Basophils # (0-0.4) PT (9.4-12.5) SECONDS INR (0.8-3.0) APTT (25.1-36.5) SECONDS Sodium (137-145) mmol/L Potassium (3.5-5.1) mmol/L Chloride (98-107) mmol/L Carbon Dioxide (22-30) mmol/L Anion Gap (5-15) MEQ/L BUN (7-17) mg/dL Creatinine (0.52-1.04) mg/dL Estimated GFR ML/MIN Glucose (74-106) mg/dL Calcium (8.4-10.2) mg/dL Total Bilirubin (0.2-1.3) mg/dL AST (14-36) U/L ALT (0-35) U/L Alkaline Phosphatase (38-126) U/L Troponin I < 0.012 (0.000-0.034) ng/mL NT-Pro-B Natriuret Pep (0-450) pg/mL Serum Total Protein (6.3-8.2) g/dL Albumin (3.5-5.0) g/dL Thyroxine (T4) (5.53-10.96) ug/dL TSH 3rd Generation (0.47-4.68) mIU/L Urine Opiates Level (NEGATIVE) Ur Methadone (NEGATIVE) Urine Barbiturates (NEGATIVE) Ur Phencyclidine (PCP) (NEGATIVE) Urine Amphetamine (NEGATIVE) U Benzodiazepine Level (NEGATIVE) Urine Cocaine (NEGATIVE) Urine Marijuana (THC) (NEGATIVE) Influenza Type A Ag (NEGATIVE) Influenza Type B Ag (NEGATIVE) RSV (PCR) (Negative) SARS-CoV-2 (PCR) (NEGATIVE) - Progress Progress: improved Progress Note: 12/31/21 13:17 HR in 150's which appeared to be a sinus tach rather than SVT, so treated w 15mg IV Cardizem w improvement 1mg IV Ativan before Cardizem for anxiety 12/31/21 14:12 25mg po Lopressor Pt's HR acceptable after Cardizem/Lopressor ASA 324mg po Spoke w Dr. Kong, ok to admit at [facility], would like to increase Toprol XL to 75mg daily and stop Norvasc/Believes that rhythm was most likely Aflutter 12/31/21 14:15 12/31/21 14:[address] Kong 12/31/21 23:33 Counseled pt/family regarding: lab results, diagnosis, need for follow-up, rad results - Departure Departure Disposition: Observation Clinical Impression: Sinus tachycardia Condition: Stable Critical Care Time: No
[2021-12-31] MEDS ORDERED: Lopressor 50 MG PO ONE (08:28)
[2021-12-31] MEDS ORDERED: Lopressor 25MG Tab PO ONE (09:09)
[2021-12-31] MEDS ORDERED: Lopressor 25MG Tab ONE (09:09)
--- NOTE | 2021-12-31 09:12 | XRAY ---
Indication: Palpitations. Comparison: October 10, 2019. Portable chest again demonstrates normal heart, lungs, and bony thorax.
[2021-12-31 10:05] LABS: Amphetamine,Urine NEGATIVE (NEGATIVE); Barbiturate,Urine NEGATIVE (NEGATIVE); Benzodiazepine,Urine NEGATIVE (NEGATIVE); Cocaine,Urine NEGATIVE (NEGATIVE); Methadone,Urine NEGATIVE (NEGATIVE); Opiate,Urine NEGATIVE (NEGATIVE); PCP,Urine NEGATIVE (NEGATIVE); THC,Urine NEGATIVE (NEGATIVE)
[2021-12-31] MEDS ORDERED: BABY ASPIRIN 81 MG CHEW PO ONE (10:44)
[2021-12-31] MEDS ORDERED: BABY ASPIRIN 81 MG CHEW ONE (10:50)
[2021-12-31] MEDS ORDERED: Zofran 4 MG/2 ML VIAL IV PRN (14:30)
[2021-12-31] MEDS ORDERED: MILK OF MAGNESIA 30 ML PO PRN (14:30)
[2021-12-31] MEDS ORDERED: TYLENOL 325 MG PO PRN (14:30)
[2021-12-31] MEDS ORDERED: MAALOX ES 30 ML UNIT DOSE PO PRN (14:30)
[2021-12-31] MEDS ORDERED: Senokot-S Tablet PO PRN (14:30)
[2021-12-31 15:22] LABS: INFLUENZA A NEGATIVE (NEGATIVE); INFLUENZA B NEGATIVE (NEGATIVE); RESPIRATORY SYNCTIAL VIRUS NEGATIVE (Negative); SARS-CoV-2 Xpert Express NEGATIVE (NEGATIVE)
[2021-12-31] MEDS ORDERED: ENOXAPARIN SODIUM SQ SCH (17:00)
[2021-12-31] MEDS ORDERED: Toprol-Xl 25MG Tablets PO SCH (22:00)
[2021-12-31] MEDS ORDERED: Toprol Xl 50 MG PO SCH (22:00)
[2022-01-01 07:29] VITALS: BP 140/74; PULSE 70; O2SAT 98
--- NOTE | 2022-01-01 07:53 | PCM.SSS ---
History of Present Illness - Chief Complaint Chief Complaint: Palpitations History of Present Illness: is a 51 year old female who presented to the ER with palpitations, has a longstanding history and sees Dr Muñoz for palpitations, had workup including echo and holter with no etiology. has been well controlled for the last few months on metoprolol 50mg daily, bp was high so added amlodipine 2 days prior and HR increased with palpitations and tightness in chest. - Review of Systems Constitutional: No Fever, No Chills Cardiac: Palpitations, No Chest Pain Abdominal/Gastrointestinal: No Abdominal Pain, No Nausea, No Vomiting, No Diarrhea Genitourinary Symptoms: No Dysuria Skin: No Rash Neurological: No Dizziness, No Focal Weakness, No Sensory Changes All Other Systems: Reviewed and Negative Medications & Allergies Home Medications: Home Medication List Metoprolol Succinate 50 mg [Toprol Xl 50 MG] 50 mg PO HS 12/31/21 [History Confirmed 12/31/21] Metoprolol Succinate 25 mg Xl* [Toprol-Xl 25MG Tablets] 25 mg PO HS #30 tab 01/01/22 [Rx] Allergies/Adverse Reactions: Allergies Allergy/AdvReac Type Severity Reaction Status Date / Time citalopram hydrobromide AdvReac Verified 12/31/21 16:02 [From Celexa] - Past Medical History Past Medical History: Yes Neurological History: No Pertinent History ENT History: No Pertinent History Cardiac History: Arrhythmia Respiratory History: No Pertinent History Endocrine Medical History: No Pertinent History Musculoskelatal History: Other GI Medical History: No Pertinent History History: No Pertinent History Pyscho-Social History: Anxiety, Panic Disorder Reproductive Disorders: No Pertinent History Comment: raynauds. SVT - Female History Hx Last Menstrual Period: menopause Are you now?: No - Past Surgical History Past Surgical History: Yes Female Surgical History: Section Other Surgical History: tonsillectomy, 2 C-sections in the past - Social History Smoking Status: Never smoker Exposure to second hand smoke: No Alcohol: None Drug Use: none Significant Family History: no pertinent family hx - Physical Exam Vital Signs: Vital Signs - 24 hr Temp Pulse Resp BP Pulse Ox 01/01/22 07:28 97.7 F 70 16 140/74 98 01/01/22 04:00 97.9 F 72 18 142/65 100 12/31/21 23:49 98.5 F 76 18 133/78 99 12/31/21 23:34 100 12/31/21 19:49 98.9 F 91 H 18 138/70 100 12/31/21 16:03 97.5 F 75 13 114/69 97 12/31/21 15:09 75 13 114/69 97 12/31/21 14:08 97.5 F 90 20 137/80 100 12/31/21 13:21 97.8 F 85 20 129/89 98 12/31/21 12:09 78 13 100 12/31/21 11:03 97.3 F 76 20 136/77 99 12/31/21 10:32 97.8 F 71 18 129/80 99 12/31/21 09:00 130 H 14 130/80 100 12/31/21 08:25 89 15 150/81 100 General Appearance: no apparent distress, anxiety Neurologic Exam: alert, oriented x 3 Respiratory Exam: normal breath sounds, lungs clear, No respiratory distress Cardiovascular Exam: regular rate/rhythm, normal heart sounds, normal peripheral pulses Gastrointestinal/Abdomen Exam: soft, normal bowel sounds, No tenderness, No mass Extremity Exam: normal inspection, normal range of motion, pelvis stable Skin Exam: normal color, warm, dry, No rash Results - Labs Lab/Micro Results: Lab Results-Last 24 Hours 12/31/21 12/31/21 12/31/21 Range/Units 07:30 07:30 07:30 WBC 7.3 (4.0-10.5) K/mm3 RBC 4.71 (4.1-5.4) M/mm3 Hgb 13.7 (12.0-16.0) gm/dl Hct 43.0 (35-47) % MCV 91.3 (78-100) fl MCH 29.1 (26-32) pg MCHC 31.9 L (32-36) g/dl RDW 14.9 H (11.5-14.0) % Plt Count 332 (150-450) K/mm3 MPV 10.7 (7.5-11.0) fl Gran % 48.7 (36.0-66.0) % Eos # (Auto) 0.25 (0-0.5) Absolute Lymphs (auto) 2.60 (1.0-4.6) Absolute Monos (auto) 0.87 (0.0-1.3) Lymphocytes % 35.6 (24.0-44.0) % Monocytes % 11.9 (0.0-12.0) % Eosinophils % 3.4 (0.00-5.0) % Basophils % 0.4 (0.0-0.4) % Absolute Granulocytes 3.55 (1.4-6.9) Basophils # 0.03 (0-0.4) PT (9.4-12.5) SECONDS INR (0.8-3.0) APTT (25.1-36.5) SECONDS Sodium 142 (137-145) mmol/L Potassium 3.3 L (3.5-5.1) mmol/L Chloride 106 (98-107) mmol/L Carbon Dioxide 22 (22-30) mmol/L Anion Gap 17.9 H (5-15) MEQ/L BUN 14 (7-17) mg/dL Creatinine 0.75 (0.52-1.04) mg/dL Estimated GFR > 60.0 ML/MIN Glucose 115 H (74-106) mg/dL Calcium 9.5 (8.4-10.2) mg/dL Total Bilirubin 0.80 (0.2-1.3) mg/dL AST 34 (14-36) U/L ALT 17 (0-35) U/L Alkaline Phosphatase 65 (38-126) U/L Troponin I < 0.012 (0.000-0.034) ng/mL NT-Pro-B Natriuret Pep 60.5 (0-450) pg/mL Serum Total Protein 8.7 H (6.3-8.2) g/dL Albumin 4.8 (3.5-5.0) g/dL Triglycerides (30-150) mg/dL Cholesterol (50-200) mg/dL LDL Cholesterol (30-100) mg/dL HDL Cholesterol (40-60) mg/dL Heart Disease Risk Ratio Thyroxine (T4) (5.53-10.96) ug/dL TSH 3rd Generation (0.47-4.68) mIU/L Urine Opiates Level (NEGATIVE) Ur Methadone (NEGATIVE) Urine Barbiturates (NEGATIVE) Ur Phencyclidine (PCP) (NEGATIVE) Urine Amphetamine (NEGATIVE) U Benzodiazepine Level (NEGATIVE) Urine Cocaine (NEGATIVE) Urine Marijuana (THC) (NEGATIVE) Influenza Type A Ag (NEGATIVE) Influenza Type B Ag (NEGATIVE) RSV (PCR) (Negative) SARS-CoV-2 (PCR) (NEGATIVE) 12/31/21 12/31/21 12/31/21 Range/Units 07:30 07:51 07:51 WBC (4.0-10.5) K/mm3 RBC (4.1-5.4) M/mm3 Hgb (12.0-16.0) gm/dl Hct (35-47) % MCV (78-100) fl MCH (26-32) pg MCHC (32-36) g/dl RDW (11.5-14.0) % Plt Count (150-450) K/mm3 MPV (7.5-11.0) fl Gran % (36.0-66.0) % Eos # (Auto) (0-0.5) Absolute Lymphs (auto) (1.0-4.6) Absolute Monos (auto) (0.0-1.3) Lymphocytes % (24.0-44.0) % Monocytes % (0.0-12.0) % Eosinophils % (0.00-5.0) % Basophils % (0.0-0.4) % Absolute Granulocytes (1.4-6.9) Basophils # (0-0.4) PT 12.0 (9.4-12.5) SECONDS INR 1.02 (0.8-3.0) APTT 31.5 (25.1-36.5) SECONDS Sodium (137-145) mmol/L Potassium (3.5-5.1) mmol/L Chloride (98-107) mmol/L Carbon Dioxide (22-30) mmol/L Anion Gap (5-15) MEQ/L BUN (7-17) mg/dL Creatinine (0.52-1.04) mg/dL Estimated GFR ML/MIN Glucose (74-106) mg/dL Calcium (8.4-10.2) mg/dL Total Bilirubin (0.2-1.3) mg/dL AST (14-36) U/L ALT (0-35) U/L Alkaline Phosphatase (38-126) U/L Troponin I (0.000-0.034) ng/mL NT-Pro-B Natriuret Pep (0-450) pg/mL Serum Total Protein (6.3-8.2) g/dL Albumin (3.5-5.0) g/dL Triglycerides (30-150) mg/dL Cholesterol (50-200) mg/dL LDL Cholesterol (30-100) mg/dL HDL Cholesterol (40-60) mg/dL Heart Disease Risk Ratio Thyroxine (T4) 8.24 (5.53-10.96) ug/dL TSH 3rd Generation 1.090 (0.47-4.68) mIU/L Urine Opiates Level (NEGATIVE) Ur Methadone (NEGATIVE) Urine Barbiturates (NEGATIVE) Ur Phencyclidine (PCP) (NEGATIVE) Urine Amphetamine (NEGATIVE) U Benzodiazepine Level (NEGATIVE) Urine Cocaine (NEGATIVE) Urine Marijuana (THC) (NEGATIVE) Influenza Type A Ag (NEGATIVE) Influenza Type B Ag (NEGATIVE) RSV (PCR) (Negative) SARS-CoV-2 (PCR) (NEGATIVE) 12/31/21 12/31/21 12/31/21 Range/Units 09:26 10:00 11:47 WBC (4.0-10.5) K/mm3 RBC (4.1-5.4) M/mm3 Hgb (12.0-16.0) gm/dl Hct (35-47) % MCV (78-100) fl MCH (26-32) pg MCHC (32-36) g/dl RDW (11.5-14.0) % Plt Count (150-450) K/mm3 MPV (7.5-11.0) fl Gran % (36.0-66.0) % Eos # (Auto) (0-0.5) Absolute Lymphs (auto) (1.0-4.6) Absolute Monos (auto) (0.0-1.3) Lymphocytes % (24.0-44.0) % Monocytes % (0.0-12.0) % Eosinophils % (0.00-5.0) % Basophils % (0.0-0.4) % Absolute Granulocytes (1.4-6.9) Basophils # (0-0.4) PT (9.4-12.5) SECONDS INR (0.8-3.0) APTT (25.1-36.5) SECONDS Sodium (137-145) mmol/L Potassium (3.5-5.1) mmol/L Chloride (98-107) mmol/L Carbon Dioxide (22-30) mmol/L Anion Gap (5-15) MEQ/L BUN (7-17) mg/dL Creatinine (0.52-1.04) mg/dL Estimated GFR ML/MIN Glucose (74-106) mg/dL Calcium (8.4-10.2) mg/dL Total Bilirubin (0.2-1.3) mg/dL AST (14-36) U/L ALT (0-35) U/L Alkaline Phosphatase (38-126) U/L Troponin I 0.049 H* 0.050 H* (0.000-0.034) ng/mL NT-Pro-B Natriuret Pep (0-450) pg/mL Serum Total Protein (6.3-8.2) g/dL Albumin (3.5-5.0) g/dL Triglycerides (30-150) mg/dL Cholesterol (50-200) mg/dL LDL Cholesterol (30-100) mg/dL HDL Cholesterol (40-60) mg/dL Heart Disease Risk Ratio Thyroxine (T4) (5.53-10.96) ug/dL TSH 3rd Generation (0.47-4.68) mIU/L Urine Opiates Level NEGATIVE (NEGATIVE) Ur Methadone NEGATIVE (NEGATIVE) Urine Barbiturates NEGATIVE (NEGATIVE) Ur Phencyclidine (PCP) NEGATIVE (NEGATIVE) Urine Amphetamine NEGATIVE (NEGATIVE) U Benzodiazepine Level NEGATIVE (NEGATIVE) Urine Cocaine NEGATIVE (NEGATIVE) Urine Marijuana (THC) NEGATIVE (NEGATIVE) Influenza Type A Ag (NEGATIVE) Influenza Type B Ag (NEGATIVE) RSV (PCR) (Negative) SARS-CoV-2 (PCR) (NEGATIVE) 12/31/21 12/31/21 12/31/21 Range/Units 14:40 16:35 19:45 WBC (4.0-10.5) K/mm3 RBC (4.1-5.4) M/mm3 Hgb (12.0-16.0) gm/dl Hct (35-47) % MCV (78-100) fl MCH (26-32) pg MCHC (32-36) g/dl RDW (11.5-14.0) % Plt Count (150-450) K/mm3 MPV (7.5-11.0) fl Gran % (36.0-66.0) % Eos # (Auto) (0-0.5) Absolute Lymphs (auto) (1.0-4.6) Absolute Monos (auto) (0.0-1.3) Lymphocytes % (24.0-44.0) % Monocytes % (0.0-12.0) % Eosinophils % (0.00-5.0) % Basophils % (0.0-0.4) % Absolute Granulocytes (1.4-6.9) Basophils # (0-0.4) PT (9.4-12.5) SECONDS INR (0.8-3.0) APTT (25.1-36.5) SECONDS Sodium (137-145) mmol/L Potassium (3.5-5.1) mmol/L Chloride (98-107) mmol/L Carbon Dioxide (22-30) mmol/L Anion Gap (5-15) MEQ/L BUN (7-17) mg/dL Creatinine (0.52-1.04) mg/dL Estimated GFR ML/MIN Glucose (74-106) mg/dL Calcium (8.4-10.2) mg/dL Total Bilirubin (0.2-1.3) mg/dL AST (14-36) U/L ALT (0-35) U/L Alkaline Phosphatase (38-126) U/L Troponin I 0.017 < 0.012 (0.000-0.034) ng/mL NT-Pro-B Natriuret Pep (0-450) pg/mL Serum Total Protein (6.3-8.2) g/dL Albumin (3.5-5.0) g/dL Triglycerides (30-150) mg/dL Cholesterol (50-200) mg/dL LDL Cholesterol (30-100) mg/dL HDL Cholesterol (40-60) mg/dL Heart Disease Risk Ratio Thyroxine (T4) (5.53-10.96) ug/dL TSH 3rd Generation (0.47-4.68) mIU/L Urine Opiates Level (NEGATIVE) Ur Methadone (NEGATIVE) Urine Barbiturates (NEGATIVE) Ur Phencyclidine (PCP) (NEGATIVE) Urine Amphetamine (NEGATIVE) U Benzodiazepine Level (NEGATIVE) Urine Cocaine (NEGATIVE) Urine Marijuana (THC) (NEGATIVE) Influenza Type A Ag NEGATIVE (NEGATIVE) Influenza Type B Ag NEGATIVE (NEGATIVE) RSV (PCR) NEGATIVE (Negative) SARS-CoV-2 (PCR) NEGATIVE (NEGATIVE) 01/01/22 Range/Units 04:15 WBC (4.0-10.5) K/mm3 RBC (4.1-5.4) M/mm3 Hgb (12.0-16.0) gm/dl Hct (35-47) % MCV (78-100) fl MCH (26-32) pg MCHC (32-36) g/dl RDW (11.5-14.0) % Plt Count (150-450) K/mm3 MPV (7.5-11.0) fl Gran % (36.0-66.0) % Eos # (Auto) (0-0.5) Absolute Lymphs (auto) (1.0-4.6) Absolute Monos (auto) (0.0-1.3) Lymphocytes % (24.0-44.0) % Monocytes % (0.0-12.0) % Eosinophils % (0.00-5.0) % Basophils % (0.0-0.4) % Absolute Granulocytes (1.4-6.9) Basophils # (0-0.4) PT (9.4-12.5) SECONDS INR (0.8-3.0) APTT (25.1-36.5) SECONDS Sodium (137-145) mmol/L Potassium (3.5-5.1) mmol/L Chloride (98-107) mmol/L Carbon Dioxide (22-30) mmol/L Anion Gap (5-15) MEQ/L BUN (7-17) mg/dL Creatinine (0.52-1.04) mg/dL Estimated GFR ML/MIN Glucose (74-106) mg/dL Calcium (8.4-10.2) mg/dL Total Bilirubin (0.2-1.3) mg/dL AST (14-36) U/L ALT (0-35) U/L Alkaline Phosphatase (38-126) U/L Troponin I (0.000-0.034) ng/mL NT-Pro-B Natriuret Pep (0-450) pg/mL Serum Total Protein (6.3-8.2) g/dL Albumin (3.5-5.0) g/dL Triglycerides 68 (30-150) mg/dL Cholesterol 176 (50-200) mg/dL LDL Cholesterol 92 (30-100) mg/dL HDL Cholesterol 58 (40-60) mg/dL Heart Disease Risk Ratio 3.0 Thyroxine (T4) (5.53-10.96) ug/dL TSH 3rd Generation (0.47-4.68) mIU/L Urine Opiates Level (NEGATIVE) Ur Methadone (NEGATIVE) Urine Barbiturates (NEGATIVE) Ur Phencyclidine (PCP) (NEGATIVE) Urine Amphetamine (NEGATIVE) U Benzodiazepine Level (NEGATIVE) Urine Cocaine (NEGATIVE) Urine Marijuana (THC) (NEGATIVE) Influenza Type A Ag (NEGATIVE) Influenza Type B Ag (NEGATIVE) RSV (PCR) (Negative) SARS-CoV-2 (PCR) (NEGATIVE) - Radiology Impressions Radiology Exams & Impressions: Radiology Procedures Category Date Time Status CHEST 1 VIEW (PORTABLE) Stat Exams 12/31/21 07:30 Completed - Other Procedures and Tests Respiratory Therapy 01/02/22 05:00 EKG ONCE 01/03/22 05:00 EKG ONCE Assessment/Plan (1) Sinus tachycardia Current Visit: Yes Status: Acute Assessment & Plan: increased metoprolol, stopped amlodipine. HR is currently well controlled, discussed benign nature of sinus tachycardia, will f/u with Dr Muñoz Code(s): R00.0 - TACHYCARDIA, UNSPECIFIED (2) Anxiety Current Visit: No Status: Acute Code(s): F41.9 - ANXIETY DISORDER, UNSPECIFIED (3) Palpitations Current Visit: No Status: Acute Code(s): R00.2 - PALPITATIONS Hospital Summary - Vitals & Intake/Output Vital Signs: Vital Signs Temperature 97.7 F 01/01/22 07:28 Pulse Rate 70 01/01/22 07:28 Respiratory Rate 16 01/01/22 07:28 Blood Pressure 140/74 01/01/22 07:28 O2 Sat by Pulse Oximetry 98 01/01/22 07:28 Intake & Output: Intake & Output 12/29/21 12/30/21 12/31/21 01/01/22 11:59 11:59 11:59 11:59 Intake Total 1000 Balance 1000 Weight 50.3 kg 50.4 kg - Lab Result Diagrams: 12/31/21 07:30 12/31/21 07:30 Lab Results-Last 24 Hrs: Lab Results-Last 24 Hours 12/31/21 12/31/21 12/31/21 Range/Units 07:30 07:30 07:30 WBC 7.3 (4.0-10.5) K/mm3 RBC 4.71 (4.1-5.4) M/mm3 Hgb 13.7 (12.0-16.0) gm/dl Hct 43.0 (35-47) % MCV 91.3 (78-100) fl MCH 29.1 (26-32) pg MCHC 31.9 L (32-36) g/dl RDW 14.9 H (11.5-14.0) % Plt Count 332 (150-450) K/mm3 MPV 10.7 (7.5-11.0) fl Gran % 48.7 (36.0-66.0) % Eos # (Auto) 0.25 (0-0.5) Absolute Lymphs (auto) 2.60 (1.0-4.6) Absolute Monos (auto) 0.87 (0.0-1.3) Lymphocytes % 35.6 (24.0-44.0) % Monocytes % 11.9 (0.0-12.0) % Eosinophils % 3.4 (0.00-5.0) % Basophils % 0.4 (0.0-0.4) % Absolute Granulocytes 3.55 (1.4-6.9) Basophils # 0.03 (0-0.4) PT (9.4-12.5) SECONDS INR (0.8-3.0) APTT (25.1-36.5) SECONDS Sodium 142 (137-145) mmol/L Potassium 3.3 L (3.5-5.1) mmol/L Chloride 106 (98-107) mmol/L Carbon Dioxide 22 (22-30) mmol/L Anion Gap 17.9 H (5-15) MEQ/L BUN 14 (7-17) mg/dL Creatinine 0.75 (0.52-1.04) mg/dL Estimated GFR > 60.0 ML/MIN Glucose 115 H (74-106) mg/dL Calcium 9.5 (8.4-10.2) mg/dL Total Bilirubin 0.80 (0.2-1.3) mg/dL AST 34 (14-36) U/L ALT 17 (0-35) U/L Alkaline Phosphatase 65 (38-126) U/L Troponin I < 0.012 (0.000-0.034) ng/mL NT-Pro-B Natriuret Pep 60.5 (0-450) pg/mL Serum Total Protein 8.7 H (6.3-8.2) g/dL Albumin 4.8 (3.5-5.0) g/dL Triglycerides (30-150) mg/dL Cholesterol (50-200) mg/dL LDL Cholesterol (30-100) mg/dL HDL Cholesterol (40-60) mg/dL Heart Disease Risk Ratio Thyroxine (T4) (5.53-10.96) ug/dL TSH 3rd Generation (0.47-4.68) mIU/L Urine Opiates Level (NEGATIVE) Ur Methadone (NEGATIVE) Urine Barbiturates (NEGATIVE) Ur Phencyclidine (PCP) (NEGATIVE) Urine Amphetamine (NEGATIVE) U Benzodiazepine Level (NEGATIVE) Urine Cocaine (NEGATIVE) Urine Marijuana (THC) (NEGATIVE) Influenza Type A Ag (NEGATIVE) Influenza Type B Ag (NEGATIVE) RSV (PCR) (Negative) SARS-CoV-2 (PCR) (NEGATIVE) 12/31/21 12/31/21 12/31/21 Range/Units 07:30 07:51 07:51 WBC (4.0-10.5) K/mm3 RBC (4.1-5.4) M/mm3 Hgb (12.0-16.0) gm/dl Hct (35-47) % MCV (78-100) fl MCH (26-32) pg MCHC (32-36) g/dl RDW (11.5-14.0) % Plt Count (150-450) K/mm3 MPV (7.5-11.0) fl Gran % (36.0-66.0) % Eos # (Auto) (0-0.5) Absolute Lymphs (auto) (1.0-4.6) Absolute Monos (auto) (0.0-1.3) Lymphocytes % (24.0-44.0) % Monocytes % (0.0-12.0) % Eosinophils % (0.00-5.0) % Basophils % (0.0-0.4) % Absolute Granulocytes (1.4-6.9) Basophils # (0-0.4) PT 12.0 (9.4-12.5) SECONDS INR 1.02 (0.8-3.0) APTT 31.5 (25.1-36.5) SECONDS Sodium (137-145) mmol/L Potassium (3.5-5.1) mmol/L Chloride (98-107) mmol/L Carbon Dioxide (22-30) mmol/L Anion Gap (5-15) MEQ/L BUN (7-17) mg/dL Creatinine (0.52-1.04) mg/dL Estimated GFR ML/MIN Glucose (74-106) mg/dL Calcium (8.4-10.2) mg/dL Total Bilirubin (0.2-1.3) mg/dL AST (14-36) U/L ALT (0-35) U/L Alkaline Phosphatase (38-126) U/L Troponin I (0.000-0.034) ng/mL NT-Pro-B Natriuret Pep (0-450) pg/mL Serum Total Protein (6.3-8.2) g/dL Albumin (3.5-5.0) g/dL Triglycerides (30-150) mg/dL Cholesterol (50-200) mg/dL LDL Cholesterol (30-100) mg/dL HDL Cholesterol (40-60) mg/dL Heart Disease Risk Ratio Thyroxine (T4) 8.24 (5.53-10.96) ug/dL TSH 3rd Generation 1.090 (0.47-4.68) mIU/L Urine Opiates Level (NEGATIVE) Ur Methadone (NEGATIVE) Urine Barbiturates (NEGATIVE) Ur Phencyclidine (PCP) (NEGATIVE) Urine Amphetamine (NEGATIVE) U Benzodiazepine Level (NEGATIVE) Urine Cocaine (NEGATIVE) Urine Marijuana (THC) (NEGATIVE) Influenza Type A Ag (NEGATIVE) Influenza Type B Ag (NEGATIVE) RSV (PCR) (Negative) SARS-CoV-2 (PCR) (NEGATIVE) 12/31/21 12/31/21 12/31/21 Range/Units 09:26 10:00 11:47 WBC (4.0-10.5) K/mm3 RBC (4.1-5.4) M/mm3 Hgb (12.0-16.0) gm/dl Hct (35-47) % MCV (78-100) fl MCH (26-32) pg MCHC (32-36) g/dl RDW (11.5-14.0) % Plt Count (150-450) K/mm3 MPV (7.5-11.0) fl Gran % (36.0-66.0) % Eos # (Auto) (0-0.5) Absolute Lymphs (auto) (1.0-4.6) Absolute Monos (auto) (0.0-1.3) Lymphocytes % (24.0-44.0) % Monocytes % (0.0-12.0) % Eosinophils % (0.00-5.0) % Basophils % (0.0-0.4) % Absolute Granulocytes (1.4-6.9) Basophils # (0-0.4) PT (9.4-12.5) SECONDS INR (0.8-3.0) APTT (25.1-36.5) SECONDS Sodium (137-145) mmol/L Potassium (3.5-5.1) mmol/L Chloride (98-107) mmol/L Carbon Dioxide (22-30) mmol/L Anion Gap (5-15) MEQ/L BUN (7-17) mg/dL Creatinine (0.52-1.04) mg/dL Estimated GFR ML/MIN Glucose (74-106) mg/dL Calcium (8.4-10.2) mg/dL Total Bilirubin (0.2-1.3) mg/dL AST (14-36) U/L ALT (0-35) U/L Alkaline Phosphatase (38-126) U/L Troponin I 0.049 H* 0.050 H* (0.000-0.034) ng/mL NT-Pro-B Natriuret Pep (0-450) pg/mL Serum Total Protein (6.3-8.2) g/dL Albumin (3.5-5.0) g/dL Triglycerides (30-150) mg/dL Cholesterol (50-200) mg/dL LDL Cholesterol (30-100) mg/dL HDL Cholesterol (40-60) mg/dL Heart Disease Risk Ratio Thyroxine (T4) (5.53-10.96) ug/dL TSH 3rd Generation (0.47-4.68) mIU/L Urine Opiates Level NEGATIVE (NEGATIVE) Ur Methadone NEGATIVE (NEGATIVE) Urine Barbiturates NEGATIVE (NEGATIVE) Ur Phencyclidine (PCP) NEGATIVE (NEGATIVE) Urine Amphetamine NEGATIVE (NEGATIVE) U Benzodiazepine Level NEGATIVE (NEGATIVE) Urine Cocaine NEGATIVE (NEGATIVE) Urine Marijuana (THC) NEGATIVE (NEGATIVE) Influenza Type A Ag (NEGATIVE) Influenza Type B Ag (NEGATIVE) RSV (PCR) (Negative) SARS-CoV-2 (PCR) (NEGATIVE) 12/31/21 12/31/21 12/31/21 Range/Units 14:40 16:35 19:45 WBC (4.0-10.5) K/mm3 RBC (4.1-5.4) M/mm3 Hgb (12.0-16.0) gm/dl Hct (35-47) % MCV (78-100) fl MCH (26-32) pg MCHC (32-36) g/dl RDW (11.5-14.0) % Plt Count (150-450) K/mm3 MPV (7.5-11.0) fl Gran % (36.0-66.0) % Eos # (Auto) (0-0.5) Absolute Lymphs (auto) (1.0-4.6) Absolute Monos (auto) (0.0-1.3) Lymphocytes % (24.0-44.0) % Monocytes % (0.0-12.0) % Eosinophils % (0.00-5.0) % Basophils % (0.0-0.4) % Absolute Granulocytes (1.4-6.9) Basophils # (0-0.4) PT (9.4-12.5) SECONDS INR (0.8-3.0) APTT (25.1-36.5) SECONDS Sodium (137-145) mmol/L Potassium (3.5-5.1) mmol/L Chloride (98-107) mmol/L Carbon Dioxide (22-30) mmol/L Anion Gap (5-15) MEQ/L BUN (7-17) mg/dL Creatinine (0.52-1.04) mg/dL Estimated GFR ML/MIN Glucose (74-106) mg/dL Calcium (8.4-10.2) mg/dL Total Bilirubin (0.2-1.3) mg/dL AST (14-36) U/L ALT (0-35) U/L Alkaline Phosphatase (38-126) U/L Troponin I 0.017 < 0.012 (0.000-0.034) ng/mL NT-Pro-B Natriuret Pep (0-450) pg/mL Serum Total Protein (6.3-8.2) g/dL Albumin (3.5-5.0) g/dL Triglycerides (30-150) mg/dL Cholesterol (50-200) mg/dL LDL Cholesterol (30-100) mg/dL HDL Cholesterol (40-60) mg/dL Heart Disease Risk Ratio Thyroxine (T4) (5.53-10.96) ug/dL TSH 3rd Generation (0.47-4.68) mIU/L Urine Opiates Level (NEGATIVE) Ur Methadone (NEGATIVE) Urine Barbiturates (NEGATIVE) Ur Phencyclidine (PCP) (NEGATIVE) Urine Amphetamine (NEGATIVE) U Benzodiazepine Level (NEGATIVE) Urine Cocaine (NEGATIVE) Urine Marijuana (THC) (NEGATIVE) Influenza Type A Ag NEGATIVE (NEGATIVE) Influenza Type B Ag NEGATIVE (NEGATIVE) RSV (PCR) NEGATIVE (Negative) SARS-CoV-2 (PCR) NEGATIVE (NEGATIVE) 01/01/22 Range/Units 04:15 WBC (4.0-10.5) K/mm3 RBC (4.1-5.4) M/mm3 Hgb (12.0-16.0) gm/dl Hct (35-47) % MCV (78-100) fl MCH (26-32) pg MCHC (32-36) g/dl RDW (11.5-14.0) % Plt Count (150-450) K/mm3 MPV (7.5-11.0) fl Gran % (36.0-66.0) % Eos # (Auto) (0-0.5) Absolute Lymphs (auto) (1.0-4.6) Absolute Monos (auto) (0.0-1.3) Lymphocytes % (24.0-44.0) % Monocytes % (0.0-12.0) % Eosinophils % (0.00-5.0) % Basophils % (0.0-0.4) % Absolute Granulocytes (1.4-6.9) Basophils # (0-0.4) PT (9.4-12.5) SECONDS INR (0.8-3.0) APTT (25.1-36.5) SECONDS Sodium (137-145) mmol/L Potassium (3.5-5.1) mmol/L Chloride (98-107) mmol/L Carbon Dioxide (22-30) mmol/L Anion Gap (5-15) MEQ/L BUN (7-17) mg/dL Creatinine (0.52-1.04) mg/dL Estimated GFR ML/MIN Glucose (74-106) mg/dL Calcium (8.4-10.2) mg/dL Total Bilirubin (0.2-1.3) mg/dL AST (14-36) U/L ALT (0-35) U/L Alkaline Phosphatase (38-126) U/L Troponin I (0.000-0.034) ng/mL NT-Pro-B Natriuret Pep (0-450) pg/mL Serum Total Protein (6.3-8.2) g/dL Albumin (3.5-5.0) g/dL Triglycerides 68 (30-150) mg/dL Cholesterol 176 (50-200) mg/dL LDL Cholesterol 92 (30-100) mg/dL HDL Cholesterol 58 (40-60) mg/dL Heart Disease Risk Ratio 3.0 Thyroxine (T4) (5.53-10.96) ug/dL TSH 3rd Generation (0.47-4.68) mIU/L Urine Opiates Level (NEGATIVE) Ur Methadone (NEGATIVE) Urine Barbiturates (NEGATIVE) Ur Phencyclidine (PCP) (NEGATIVE) Urine Amphetamine (NEGATIVE) U Benzodiazepine Level (NEGATIVE) Urine Cocaine (NEGATIVE) Urine Marijuana (THC) (NEGATIVE) Influenza Type A Ag (NEGATIVE) Influenza Type B Ag (NEGATIVE) RSV (PCR) (Negative) SARS-CoV-2 (PCR) (NEGATIVE) - Radiology Exams Ordered Rad Exams-Entire Visit: Radiology Procedures Category Date Time Status CHEST 1 VIEW (PORTABLE) Stat Exams 12/31/21 07:30 Completed - Procedures and Test Procedures and Tests throughout Hospitalization: Therapy Orders & Screens 12/31/21 14:30 EKG [id number],PRN Comment: 12/31/21 15:19 EKG ONCE Comment: 01/01/22 05:00 EKG ONCE Comment: 01/02/22 05:00 EKG ONCE Comment: 01/03/22 05:00 EKG ONCE Comment: - Discharge Disposition: Home, Self-Care Condition: Stable Prescriptions: New Metoprolol Succinate 25 mg Xl* [Toprol-Xl 25MG Tablets] 25 mg PO HS #30 tab Continue Metoprolol Succinate 50 mg [Toprol Xl 50 MG] 50 mg PO HS Discontinued Amlodipine Besylate 2.5 mg PO HS Follow up with: FRANCISCO SMALL NP [Primary Care Provider] - TIM MUÑOZ [CONSULTING PHYSICIAN] - 1 Week
[2022-01-01] MEDS ORDERED: Ecotrin 325 MG PO SCH (10:00)
== END 2022-01-01 10:00 | disposition home or self-care (01) ==
LOC: ED 07:15 → MED SURG 15:53
PROVIDERS: ADMIT Family Medicine; ATTEND Family Medicine
DX: R00.0 Tachycardia, unspecified (principal); F41.9 Anxiety disorder, unspecified; R00.2 Palpitations; Z79.899 Other long term (current) drug therapy; Z20.828 Contact with and (suspected) exposure to other viral communicable diseases
CPT/HCPCS: 0241U; 36415; 71045; 80053; 80061; 80307; 83721; 83880; 84436; 84443; 84484; 85025; 85610; 85730; 93005; 93268; 96360; 96374; 96375; 96376; 99285; G0378; J1650; J2060; A9270-GY

== ENCOUNTER 2022-11-22 13:45 | Emergency (ER) | payer OTHER ==
--- NOTE | 2022-11-22 14:09 | ERPHSYRPT ---
- History of Present Illness Time Seen by Provider: 11/22/22 14:08 Source: patient Exam Limitations: no limitations Physician History: Patient presents w/ hematuria since this AM. No fever. No N/V. No dysuria. Reports urgency No previous episodes Some left sided flank pain 3/10 in severity Hx of menopause, but still has uterus w/ fibroids noted on US last year. Timing/Duration: today Activites at Onset: none Quality: sharpness Onset Location: left flank Pain Radiation: groin Severity of Pain-Max: moderate Severity of Pain-Current: mild Prior abdominal problems: none Sexual intercourse history: single partner Associated Symptoms: abdominal pain, urinary frequency, No fever, No chills, No diaphoresis, No nausea, No vomiting, No dysuria, No vaginal discharge, No vaginal fluid leakage Allergies/Adverse Reactions: citalopram hydrobromide [From [employer]] Adverse Reaction (Verified 11/22/22 14:04) Home Medications: Metoprolol Succinate 50 mg [Toprol Xl 50 MG] 50 mg PO HS 12/31/21 [History] Hx Tetanus, Diphtheria Vaccination/Date Given: Yes Hx Influenza Vaccination/Date Given: No Hx Pneumococcal Vaccination/Date Given: No Travel Risk - Vaccine Status Have you recieved a Covid-19 vaccination: No - Review of Systems Constitutional: No Symptoms Eyes: No Symptoms Ears, Nose, & Throat: No Symptoms Respiratory: No Symptoms Cardiac: No Symptoms Abdominal/Gastrointestinal: No Symptoms Genitourinary Symptoms: Frequency, Urgency, Flank Pain (left), No Dysuria Musculoskeletal: No Symptoms Skin: No Symptoms Neurological: No Symptoms Psychological: No Symptoms Endocrine: No Symptoms Hematologic/Lymphatic: No Symptoms Immunological/Allergic: No Symptoms All Other Systems: Reviewed and Negative - Past Medical History Pertinent Past Medical History: Yes Neurological History: No Pertinent History ENT History: No Pertinent History Cardiac History: Arrhythmia Respiratory History: No Pertinent History Endocrine Medical History: No Pertinent History Musculoskeletal History: Other GI Medical History: No Pertinent History History: No Pertinent History Psycho-Social History: Anxiety, Panic Disorder Female Reproductive Disorders: No Pertinent History Other Medical History: raynauds. SVT - Past Surgical History Past Surgical History: Yes Female Surgical History: Section Other Surgical History: tonsillectomy, 2 C-sections in the past - Social History Smoking Status: Never smoker Exposure to second hand smoke: No Drug Use: none Patient Lives Alone: Yes Significant Family History: no pertinent family hx - Nursing Vital Signs Nursing Vital Signs: Initial Vital Signs Temperature 98.0 F 11/22/22 14:05 Pulse Rate 105 H 11/22/22 14:05 Respiratory Rate 18 11/22/22 14:05 Blood Pressure 174/100 11/22/22 14:05 O2 Sat by Pulse Oximetry 100 11/22/22 14:05 Pain Scale Pain Intensity 0 - Physical Exam General Appearance: no apparent distress Eye Exam: eyes nml inspection Ears, Nose, Throat Exam: normal ENT inspection Neck Exam: normal inspection Respiratory Exam: normal breath sounds Cardiovascular Exam: regular rate/rhythm Gastrointestinal/Abdomen Exam: soft, normal bowel sounds, tenderness (LLQ), No guarding, No rebound Back Exam: normal inspection, normal range of motion, No CVA tenderness Skin Exam: normal color, warm, dry SpO2 Interpretation: normal O2 Delivery: Room Air - Course Nursing assessment & vital signs reviewed: Yes - CT Exams Abdomen/Pelvis CT Interpretation: Negative, Tele-radiologist Report Ordered Tests: Active Orders 24 hr Category Date Time Status ABDOMEN AND PELVIS W/0 CONTRAS [CT] Stat Exams 11/22/22 14:32 Taken CBC W DIFF Stat Lab 11/22/22 14:30 Completed CMP Stat Lab 11/22/22 14:30 Completed CULTURE,URINE Stat Lab 11/22/22 14:05 Received Lactic Acid Stat Lab 11/22/22 14:30 Completed PT INR [PROTIME WITH INR] Stat Lab 11/22/22 15:20 Completed PTT Stat Lab 11/22/22 15:20 Completed UA W/RFX UR CULTURE Stat Lab 11/22/22 14:05 Completed Lab/Rad Data: Laboratory Result Diagrams 11/22/22 14:30 11/22/22 14:30 Laboratory Results 11/22/22 11/22/22 11/22/22 Range/Units 15:20 14:30 14:30 WBC (4.0-10.5) x10^3/uL RBC (4.1-5.4) x10^6/uL Hgb (12.0-16.0) g/dL Hct (35-47) % MCV (78-100) fL MCH (26-32) pg MCHC (32-36) g/dL RDW (11.5-14.0) % Plt Count (150-450) x10^3/uL MPV (7.5-11.0) fL Gran % (36.0-66.0) % Immature Gran % (Auto) (0.00-0.4) % Nucleat RBC Rel Count (0.00-0.1) % Eos # (Auto) (0-0.5) x10^3/uL Immature Gran # (Auto) (0.00-0.03) x10^3u/L Absolute Lymphs (auto) (1.0-4.6) x10^3/uL Absolute Monos (auto) (0.0-1.3) x10^3/uL Absolute Nucleated RBC (0.00-0.01) x10^3u/L Lymphocytes % (24.0-44.0) % Monocytes % (0.0-12.0) % Eosinophils % (0.00-5.0) % Basophils % (0.0-0.4) % Absolute Granulocytes (1.4-6.9) x10^3/uL Basophils # (0-0.4) x10^3/uL PT 10.5 (9.4-12.5) SECONDS INR 0.96 (0.8-3.0) APTT 25.1 (25.1-36.5) SECONDS Sodium 147 H (137-145) mmol/L Potassium 3.8 (3.5-5.1) mmol/L Chloride 104 (98-107) mmol/L Carbon Dioxide 32 H (22-30) mmol/L Anion Gap 14.7 (5-15) MEQ/L BUN 9 (7-17) mg/dL Creatinine 0.72 (0.52-1.04) mg/dL Estimated GFR > 60.0 ML/MIN Glucose 100 (74-106) mg/dL Lactic Acid 1.3 (0.4-2.0) Calcium 9.6 (8.4-10.2) mg/dL Total Bilirubin 0.50 (0.2-1.3) mg/dL AST 32 (14-36) U/L ALT 17 (0-35) U/L Alkaline Phosphatase 69 (38-126) U/L Serum Total Protein 8.5 H (6.3-8.2) g/dL Albumin 4.8 (3.5-5.0) g/dL Urine Color (Yellow) Urine Appearance (Clear) Urine pH (4.6-8.0) Ur Specific [place] (1.005-1.030) Urine Protein (Negative) Urine Glucose (UA) (Negative) mg/dL Urine Ketones (Negative) Urine Blood (Negative) Urine Nitrite (Negative) Urine Bilirubin (Negative) Urine Urobilinogen (0.2) mg/dL Ur Leukocyte Esterase (Negative) U Hyaline Cast (Auto) (0-2) /LPF Urine Microscopic RBC (0-5) /HPF Urine Microscopic WBC (0-5) /HPF Ur Epithelial Cells (None Seen) /HPF Urine Bacteria (None Seen) /HPF Urine Culture Reflexed (NO) 11/22/22 11/22/22 Range/Units 14:30 14:05 WBC 9.9 (4.0-10.5) x10^3/uL RBC 4.63 (4.1-5.4) x10^6/uL Hgb 14.2 (12.0-16.0) g/dL Hct 43.3 (35-47) % MCV 93.5 (78-100) fL MCH 30.7 (26-32) pg MCHC 32.8 (32-36) g/dL RDW 11.6 (11.5-14.0) % Plt Count 273 (150-450) x10^3/uL MPV 9.7 (7.5-11.0) fL Gran % 79.1 H (36.0-66.0) % Immature Gran % (Auto) 0.3 (0.00-0.4) % Nucleat RBC Rel Count 0.0 (0.00-0.1) % Eos # (Auto) 0.12 (0-0.5) x10^3/uL Immature Gran # (Auto) 0.03 (0.00-0.03) x10^3u/L Absolute Lymphs (auto) 1.23 (1.0-4.6) x10^3/uL Absolute Monos (auto) 0.66 (0.0-1.3) x10^3/uL Absolute Nucleated RBC 0.00 (0.00-0.01) x10^3u/L Lymphocytes % 12.4 L (24.0-44.0) % Monocytes % 6.6 (0.0-12.0) % Eosinophils % 1.2 (0.00-5.0) % Basophils % 0.4 (0.0-0.4) % Absolute Granulocytes 7.86 H (1.4-6.9) x10^3/uL Basophils # 0.04 (0-0.4) x10^3/uL PT (9.4-12.5) SECONDS INR (0.8-3.0) APTT (25.1-36.5) SECONDS Sodium (137-145) mmol/L Potassium (3.5-5.1) mmol/L Chloride (98-107) mmol/L Carbon Dioxide (22-30) mmol/L Anion Gap (5-15) MEQ/L BUN (7-17) mg/dL Creatinine (0.52-1.04) mg/dL Estimated GFR ML/MIN Glucose (74-106) mg/dL Lactic Acid (0.4-2.0) Calcium (8.4-10.2) mg/dL Total Bilirubin (0.2-1.3) mg/dL AST (14-36) U/L ALT (0-35) U/L Alkaline Phosphatase (38-126) U/L Serum Total Protein (6.3-8.2) g/dL Albumin (3.5-5.0) g/dL Urine Color Yellow (Yellow) Urine Appearance Clear (Clear) Urine pH 6.5 (4.6-8.0) Ur Specific [place] <=1.005 (1.005-1.030) Urine Protein Negative (Negative) Urine Glucose (UA) Negative (Negative) mg/dL Urine Ketones Negative (Negative) Urine Blood Large A (Negative) Urine Nitrite Negative (Negative) Urine Bilirubin Negative (Negative) Urine Urobilinogen 0.2 (0.2) mg/dL Ur Leukocyte Esterase Moderate A (Negative) U Hyaline Cast (Auto) NONE SEEN (0-2) /LPF Urine Microscopic RBC 0-2 (0-5) /HPF Urine Microscopic WBC 11-20 A (0-5) /HPF Ur Epithelial Cells None Seen (None Seen) /HPF Urine Bacteria None Seen (None Seen) /HPF Urine Culture Reflexed YES (NO) - Progress Progress: unchanged Air Movement: good Progress Note: 11/22/22 16:44 CT abd/pelvis showed no acute abd pathology. UA did show large amounts of blood, LE and WBC. Due to patient's urinary sxs will start Macrobid. Advised patient she will need f/u UA in 6 weeks to monitor for resolution. Discussed performing speculum exam due to possible intrauterine bleeding as the source for her hematuria, but she was hesistant and deferred at this time. Blood Culture(s) Obtained: No Antibiotics given: Yes Counseled pt/family regarding: lab results, diagnosis, need for follow-up, rad results Medical Desision Making - Diagnostic Testing Diagnostic test were ordered, analyzed, and reviewed by me: Yes Radiological Interpretation: Reviewed by me, Teleradiologist Report - Risk of complications The pt has a mod risk of morbidity or mortality based on: Need for prescription drug management - Departure Departure Disposition: Home Clinical Impression: Hematuria due to acute cystitis Condition: Good Critical Care Time: No Referrals: FRANCISCO SMALL NP [Primary Care Provider] - Follow up/PCP as directed Instructions: Blood in the Urine (Hematuria) in Adults Additional Instructions: Patient needs f/u UA in 6 weeks to monitor for resolution. Prescriptions: Nitrofurantoin Monohyd/M-Cryst [Macrobid 100 mg Capsule] 100 mg PO BID 5 Days #10 cap
[2022-11-22 14:14] VITALS: O2SAT 100
[2022-11-22 15:03] LABS: Absolute Neutrophil Ct (ANC) 7.86 x10^3/uL (1.4-6.9); BASOPHIL % 0.4 % (0.0-0.4); Basophil (Absolute #) 0.04 x10^3/uL (0-0.4); Eosinophil % 1.2 % (0.00-5.0); Eosinophil (Absolute #) 0.12 x10^3/uL (0-0.5); Hematocrit 43.3 % (35-47); Hemoglobin 14.2 g/dL (12.0-16.0); IMMATURE GRAN # 0.03 x10^3u/L (0.00-0.03); IMMATURE GRAN % 0.3 % (0.00-0.4); Lymphocyte (Absolute #) 1.23 x10^3/uL (1.0-4.6); Lymphocytes % 12.4 % (24.0-44.0); Mean Cell Volume 93.5 fL (78-100); Mean Corpuscular Hemoglobin 30.7 pg (26-32); Mean Corpuscular Hgb Concent. 32.8 g/dL (32-36); Mean Platelet Volume 9.7 fL (7.5-11.0); Monocyte (Absolute #) 0.66 x10^3/uL (0.0-1.3); Monocytes % 6.6 % (0.0-12.0); Neutrophil % 79.1 % (36.0-66.0); Platelet Count 273 x10^3/uL (150-450); Red Blood Count 4.63 x10^6/uL (4.1-5.4); Red Cell Distribution Width 11.6 % (11.5-14.0); White Blood Count 9.9 x10^3/uL (4.0-10.5)
[2022-11-22 15:06] LABS: Appearance Clear (Clear); Bacteria None Seen /HPF (None Seen); Bilirubin Negative (Negative); Blood Large (Negative); Epithelial Cells None Seen /HPF (None Seen); Glucose, Urine Negative (Negative); Hyaline Casts NONE SEEN /LPF (0-2); Ketones Negative (Negative); Leukocyte Esterase Moderate (Negative); Nitrite Negative (Negative); Ph 6.5 (4.6-8.0); Protein,Urine Dip Negative (Negative); RBC 0-2 /HPF (0-5); Specific Gravity <=1.005 (1.005-1.030); Urobilinogen 0.2 mg/dL (0.2)
[2022-11-22 15:09] LABS: ADD URINE CULTURE? YES (NO)
[2022-11-22 15:21] LABS: ALBUMIN 4.8 g/dL (3.5-5.0); ALKALINE PHOSPHATASE 69 U/L (38-126); ANION GAP 14.7 MEQ/L (5-15); BLOOD UREA NITROGEN 9 mg/dL (7-17); CHLORIDE 104 mmol/L (98-107); Calcium 9.6 mg/dL (8.4-10.2); Carbon Dioxide 32 mmol/L (22-30); Creatinine 1 0.72 mg/dL (0.52-1.04); EST GLOMERULAR FILTRATION RATE > 60.0 ML/MIN; Glucose 100 mg/dL (74-106); Potassium 3.8 mmol/L (3.5-5.1); SGOT/AST 32 U/L (14-36); SGPT/ALT 17 U/L (0-35); SODIUM 147 mmol/L (137-145); Total Protein 8.5 g/dL (6.3-8.2)
[2022-11-22 15:42] LABS: INR 0.96 (0.8-3.0); PROTIME 10.5 SECONDS (9.4-12.5); PTT 25.1 SECONDS (25.1-36.5)
[2022-11-22 16:03] VITALS: BP 138/78; PULSE 89
--- NOTE | 2022-11-22 19:48 | XRAY ---
Indication: Left flank pain. Multiple contiguous axial images obtained through the abdomen and pelvis without contrast using renal stone protocol. Comparison: February 02, 2020 Lung bases remain clear. Heart not enlarged. No renal calculus or evidence for obstructive uropathy in either system. Stomach is distended with food. Noncontrasted stomach and bowel loops appear nonobstructed with normal appendix. Mild diffuse scatter colonic fecal debris throughout. No free fluid/air. Remaining liver, gallbladder, pancreas, spleen, adrenal glands, kidneys, ureters, bladder, uterus, and aorta are unremarkable for noncontrast exam. Osseous structures intact with minimal lower lumbar degenerative changes. Impression: 1. Continued negative renal calculus or evidence for obstructive uropathy. 2. Remaining CT abdomen/pelvis without contrast exam is negative. Comment: Preliminary interpretation made by [facility]. No critical discrepancy.
== END 2022-11-22 16:07 | disposition home or self-care (01) ==
LOC: ED 13:45
DX: N30.01 Acute cystitis with hematuria (principal); R39.15 Urgency of urination; R10.9 Unspecified abdominal pain; Z79.899 Other long term (current) drug therapy; Z28.310 Unvaccinated for COVID-19
CPT/HCPCS: 36415; 74176; 80053; 81001; 83605; 85025; 85610; 85730; 87086; 99283

== ENCOUNTER 2023-01-13 13:16 | Emergency (ER) | payer OTHER ==
[2023-01-13 13:32] VITALS: O2SAT 100
[2023-01-13 14:02] LABS: BASOPHIL % 0.9 % (0.0-0.4); Basophil (Absolute #) 0.05 x10^3/uL (0-0.4); Eosinophil % 2.7 % (0.00-5.0); Eosinophil (Absolute #) 0.15 x10^3/uL (0-0.5); Hematocrit 42.1 % (35-47); Hemoglobin 13.7 g/dL (12.0-16.0); IMMATURE GRAN # 0.01 x10^3u/L (0.00-0.03); IMMATURE GRAN % 0.2 % (0.00-0.4); Lymphocytes % 21.7 % (24.0-44.0); Mean Cell Volume 94.8 fL (78-100); Mean Corpuscular Hemoglobin 30.9 pg (26-32); Mean Corpuscular Hgb Concent. 32.5 g/dL (32-36); Mean Platelet Volume 9.5 fL (7.5-11.0); Monocyte (Absolute #) 0.52 x10^3/uL (0.0-1.3); Monocytes % 9.4 % (0.0-12.0); Neutrophil % 65.1 % (36.0-66.0); Platelet Count 317 x10^3/uL (150-450); Red Blood Count 4.44 x10^6/uL (4.1-5.4); Red Cell Distribution Width 12.2 % (11.5-14.0); White Blood Count 5.5 x10^3/uL (4.0-10.5)
--- NOTE | 2023-01-13 14:06 | ERPHSYRPT ---
- History of Present Illness Source: patient Exam Limitations: no limitations Patient Subjective Stated Complaint: pt co being light headed sudden onset today at work, states she felt like she was going to pass out,felt like she was leaning to right but that is gone now Triage Nursing Assessment: pt alert, walked in, steady gait. 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 Pt was slightly nauseated but denies vomiting/focal weakness/blurry vision/chest pain/ dyspnea/headache/fever/cough/coryza. Pt has a h/o palpatations for which she takes Toprol and also has borderline hypertension. DM/CAD/RI/PE/DVT are all denied. Timing/Duration: today Severity: mild Character of Deficits: none Deficits: no difficulties Baseline/Normal Cognition: alert oriented x 3 Current Cognition: alert oriented x 3 Associated Symptoms: denies symptoms, nausea Allergies/Adverse Reactions: citalopram hydrobromide [From [employer]] Adverse Reaction (Verified 01/13/23 13:31) Home Medications: Metoprolol Succinate 50 mg [Toprol Xl 50 MG] 50 mg PO HS 12/31/21 [History] Hx Tetanus, Diphtheria Vaccination/Date Given: No Hx Influenza Vaccination/Date Given: No Hx Pneumococcal Vaccination/Date Given: No Immunizations Up to Date: Yes Travel Risk - International Travel Have you traveled outside of the country in past 3 weeks: No - Coronavirus Screening Are you exhibiting any of the following symptoms?: No Close contact with a COVID-19 positive Pt in past 14-21 Days: No - Vaccine Status Have you recieved a Covid-19 vaccination: No - Review of Systems Constitutional: No Symptoms Eyes: No Symptoms Ears, Nose, & Throat: No Symptoms Respiratory: No Symptoms Cardiac: No Symptoms Genitourinary Symptoms: No Symptoms Musculoskeletal: No Symptoms Skin: No Symptoms Neurological: No Symptoms Psychological: No Symptoms Endocrine: No Symptoms Hematologic/Lymphatic: No Symptoms Immunological/Allergic: No Symptoms - Past Medical History Pertinent Past Medical History: Yes Neurological History: No Pertinent History ENT History: No Pertinent History Cardiac History: Arrhythmia Respiratory History: No Pertinent History Endocrine Medical History: No Pertinent History Musculoskeletal History: Other GI Medical History: No Pertinent History History: No Pertinent History Psycho-Social History: Anxiety, Panic Disorder Female Reproductive Disorders: No Pertinent History Other Medical History: raynauds. SVT - Past Surgical History Past Surgical History: Yes Female Surgical History: Section Other Surgical History: tonsillectomy, 2 C-sections in the past - Social History Smoking Status: Never smoker Exposure to second hand smoke: No Drug Use: none Patient Lives Alone: No Significant Family History: no pertinent family hx - Nursing Vital Signs Nursing Vital Signs: Initial Vital Signs Pulse Rate 89 01/13/23 13:30 Respiratory Rate 21 01/13/23 13:30 Blood Pressure 173/103 01/13/23 13:30 O2 Sat by Pulse Oximetry 100 01/13/23 13:30 Pain Scale Pain Intensity 0 Hypertensive - Jayant Coma Scale Best Eye Response ([place]): (4) open spontaneously Best Verbal Response (Jayant): (5) oriented Best Motor Response (Jayant): (6) obeys commands Jayant Total: 15 - Physical Exam General Appearance: no apparent distress Eye Exam: bilateral eye: normal inspection, PERRL, EOMI Ears, Nose, Throat Exam: normal ENT inspection, TMs normal, pharynx normal, moist mucous membranes Neck Exam: normal inspection, non-tender, supple, full range of motion, No meningismus, No mass, No Brudzinski, No Kernig's, No carotid bruit Respiratory: normal breath sounds, lungs clear, airway intact Cardiovascular: regular rate/rhythm, normal heart sounds, normal peripheral pulses, capillary refill <2 sec, No murmur Gastrointestinal: soft, normal bowel sounds, No tenderness Back Exam: normal inspection, normal range of motion, No CVA tenderness, No vertebral tenderness Extremity Exam: normal inspection, normal range of motion Peripheral Pulses: carotid (R): 2+, carotid (L): 2+ Mental Status: alert, oriented x 3, 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 Exam: normal hearing, normal speech, PERRL, No abnormal eye position, No abnormal gag reflex, No facial asymmetry, No facial droop, No facial paresthesias, No facial weakness Motor/Sensory: no motor deficit, no sensory deficit, no pronator drift, negative Babinski's sign DTR: bicep (R): 2+, bicep (L): 2+ Skin Exam: normal color, warm, dry, No rash SpO2 Interpretation: normal SpO2: 100 O2 Delivery: Room Air - Course Nursing assessment & vital signs reviewed: Yes EKG Interpreted by Me: RATE (NSR/Rate 85/Normal QT-QTc/Normal T waves/No acute St segment changes) - CT Exams Head CT Interpretation: Discussed w/radiologist (CT head neg per Rad) Ordered Tests: Active Orders 24 hr Category Date Time Status EKG-ER Only STAT Care 01/13/23 13:44 Completed NPO (ED) STAT Care 01/13/23 13:44 Completed HEAD WITHOUT CONTRAST [CT] Stat Exams 01/13/23 13:45 Taken CBC W DIFF Stat Lab 01/13/23 13:55 Completed CMP Stat Lab 01/13/23 13:55 Completed PROTIME WITH INR Stat Lab 01/13/23 13:55 Completed PTT Stat Lab 01/13/23 13:55 Completed TROPONIN Q4H Lab 01/13/23 13:55 Completed TROPONIN Q4H Lab 01/13/23 18:00 Ordered TROPONIN Q4H Lab 01/13/23 22:00 Ordered UA W/RFX UR CULTURE Stat Lab 01/13/23 13:55 Completed Lab/Rad Data: Laboratory Result Diagrams 01/13/23 13:55 01/13/23 13:55 Laboratory Results 01/13/23 01/13/23 01/13/23 Range/Units 13:55 13:55 13:55 WBC (4.0-10.5) x10^3/uL RBC (4.1-5.4) x10^6/uL Hgb (12.0-16.0) g/dL Hct (35-47) % MCV (78-100) fL MCH (26-32) pg MCHC (32-36) g/dL RDW (11.5-14.0) % Plt Count (150-450) x10^3/uL MPV (7.5-11.0) fL Gran % (36.0-66.0) % Immature Gran % (Auto) (0.00-0.4) % Nucleat RBC Rel Count (0.00-0.1) % Eos # (Auto) (0-0.5) x10^3/uL Immature Gran # (Auto) (0.00-0.03) x10^3u/L Absolute Lymphs (auto) (1.0-4.6) x10^3/uL Absolute Monos (auto) (0.0-1.3) x10^3/uL Absolute Nucleated RBC (0.00-0.01) x10^3u/L Lymphocytes % (24.0-44.0) % Monocytes % (0.0-12.0) % Eosinophils % (0.00-5.0) % Basophils % (0.0-0.4) % Absolute Granulocytes (1.4-6.9) x10^3/uL Basophils # (0-0.4) x10^3/uL PT 10.7 (9.4-12.5) SECONDS INR 0.98 (0.8-3.0) APTT 26.8 (25.1-36.5) SECONDS Sodium 141 (137-145) mmol/L Potassium 3.8 (3.5-5.1) mmol/L Chloride 103 (98-107) mmol/L Carbon Dioxide 28 (22-30) mmol/L Anion Gap 13.6 (5-15) MEQ/L BUN 12 (7-17) mg/dL Creatinine 0.67 (0.52-1.04) mg/dL Estimated GFR > 60.0 ML/MIN Glucose 111 H (74-106) mg/dL Calcium 9.6 (8.4-10.2) mg/dL Total Bilirubin 0.70 (0.2-1.3) mg/dL AST 28 (14-36) U/L ALT 17 (0-35) U/L Alkaline Phosphatase 59 (38-126) U/L Troponin I < 0.012 (0.000-0.034) ng/mL Serum Total Protein 8.4 H (6.3-8.2) g/dL Albumin 4.7 (3.5-5.0) g/dL Urine Color (Yellow) Urine Appearance (Clear) Urine pH (4.6-8.0) Ur Specific [place] (1.005-1.030) Urine Protein (Negative) Urine Glucose (UA) (Negative) mg/dL Urine Ketones (Negative) Urine Blood (Negative) Urine Nitrite (Negative) Urine Bilirubin (Negative) Urine Urobilinogen (0.2) mg/dL Ur Leukocyte Esterase (Negative) U Hyaline Cast (Auto) (0-2) /LPF Urine Microscopic RBC (0-5) /HPF Urine Microscopic WBC (0-5) /HPF Ur Epithelial Cells (None Seen) /HPF Urine Bacteria (None Seen) /HPF Urine Culture Reflexed (NO) 01/13/23 01/13/23 Range/Units 13:55 13:55 WBC 5.5 (4.0-10.5) x10^3/uL RBC 4.44 (4.1-5.4) x10^6/uL Hgb 13.7 (12.0-16.0) g/dL Hct 42.1 (35-47) % MCV 94.8 (78-100) fL MCH 30.9 (26-32) pg MCHC 32.5 (32-36) g/dL RDW 12.2 (11.5-14.0) % Plt Count 317 (150-450) x10^3/uL MPV 9.5 (7.5-11.0) fL Gran % 65.1 (36.0-66.0) % Immature Gran % (Auto) 0.2 (0.00-0.4) % Nucleat RBC Rel Count 0.0 (0.00-0.1) % Eos # (Auto) 0.15 (0-0.5) x10^3/uL Immature Gran # (Auto) 0.01 (0.00-0.03) x10^3u/L Absolute Lymphs (auto) 1.20 (1.0-4.6) x10^3/uL Absolute Monos (auto) 0.52 (0.0-1.3) x10^3/uL Absolute Nucleated RBC 0.00 (0.00-0.01) x10^3u/L Lymphocytes % 21.7 L (24.0-44.0) % Monocytes % 9.4 (0.0-12.0) % Eosinophils % 2.7 (0.00-5.0) % Basophils % 0.9 (0.0-0.4) % Absolute Granulocytes 3.60 (1.4-6.9) x10^3/uL Basophils # 0.05 (0-0.4) x10^3/uL PT (9.4-12.5) SECONDS INR (0.8-3.0) APTT (25.1-36.5) SECONDS Sodium (137-145) mmol/L Potassium (3.5-5.1) mmol/L Chloride (98-107) mmol/L Carbon Dioxide (22-30) mmol/L Anion Gap (5-15) MEQ/L BUN (7-17) mg/dL Creatinine (0.52-1.04) mg/dL Estimated GFR ML/MIN Glucose (74-106) mg/dL Calcium (8.4-10.2) mg/dL Total Bilirubin (0.2-1.3) mg/dL AST (14-36) U/L ALT (0-35) U/L Alkaline Phosphatase (38-126) U/L Troponin I (0.000-0.034) ng/mL Serum Total Protein (6.3-8.2) g/dL Albumin (3.5-5.0) g/dL Urine Color Yellow (Yellow) Urine Appearance Clear (Clear) Urine pH 5.5 (4.6-8.0) Ur Specific [place] 1.010 (1.005-1.030) Urine Protein Negative (Negative) Urine Glucose (UA) Negative (Negative) mg/dL Urine Ketones Negative (Negative) Urine Blood Small A (Negative) Urine Nitrite Negative (Negative) Urine Bilirubin Negative (Negative) Urine Urobilinogen 0.2 (0.2) mg/dL Ur Leukocyte Esterase Negative (Negative) U Hyaline Cast (Auto) NONE SEEN (0-2) /LPF Urine Microscopic RBC 0-2 (0-5) /HPF Urine Microscopic WBC 0-2 (0-5) /HPF Ur Epithelial Cells None Seen (None Seen) /HPF Urine Bacteria None Seen (None Seen) /HPF Urine Culture Reflexed NO (NO) - Progress Progress Note: 01/13/23 15:45 Nursing note and vital signs reviewed No food or housing insecurities noted All lab results reviewed and shared w pt CT head results reviewed and shared w pt and later daughter Serial neuro exams negative in ER/No focal weakness/chest pain/dyspnea while in ER Well's Criteria for PE 0.0 01/13/23 15:48 BP elevated during stay but decreasing Counseled pt/family regarding: lab results, diagnosis, need for follow-up, rad results Medical Desision Making - Diagnostic Testing Diagnostic test were ordered, analyzed, and reviewed by me: Yes Radiological Interpretation: Reviewed by me - Risk of complications Low Risk: Low risk of morbidity from additional dx testing or treatment - Departure Departure Disposition: Home Clinical Impression: Syncope, near Condition: Stable Critical Care Time: No Referrals: FRANCISCO SMALL NP [Primary Care Provider] - Follow up/PCP as directed Instructions: Syncope (Fainting) (DC), Near Fainting (DC) Additional Instructions: Follow up with your family MD and/or cloud engineer Continue current meds Return to ER for focal weakness/headache/chest pain/dyspnea
[2023-01-13 14:15] LABS: ALBUMIN 4.7 g/dL (3.5-5.0); ALKALINE PHOSPHATASE 59 U/L (38-126); ANION GAP 13.6 MEQ/L (5-15); BLOOD UREA NITROGEN 12 mg/dL (7-17); CHLORIDE 103 mmol/L (98-107); Calcium 9.6 mg/dL (8.4-10.2); Carbon Dioxide 28 mmol/L (22-30); Creatinine 1 0.67 mg/dL (0.52-1.04); EST GLOMERULAR FILTRATION RATE > 60.0 ML/MIN; Glucose 111 mg/dL (74-106); Potassium 3.8 mmol/L (3.5-5.1); SGOT/AST 28 U/L (14-36); SGPT/ALT 17 U/L (0-35); SODIUM 141 mmol/L (137-145); Total Protein 8.4 g/dL (6.3-8.2)
[2023-01-13 14:16] LABS: INR 0.98 (0.8-3.0); PROTIME 10.7 SECONDS (9.4-12.5); PTT 26.8 SECONDS (25.1-36.5)
[2023-01-13 14:30] LABS: ADD URINE CULTURE? NO (NO); Appearance Clear (Clear); Bacteria None Seen /HPF (None Seen); Bilirubin Negative (Negative); Blood Small (Negative); Epithelial Cells None Seen /HPF (None Seen); Glucose, Urine Negative (Negative); Hyaline Casts NONE SEEN /LPF (0-2); Ketones Negative (Negative); Leukocyte Esterase Negative (Negative); Nitrite Negative (Negative); Ph 5.5 (4.6-8.0); Protein,Urine Dip Negative (Negative); RBC 0-2 /HPF (0-5); Urobilinogen 0.2 mg/dL (0.2); WBC 0-2 /HPF (0-5)
[2023-01-13 14:56] VITALS: BP 170/101; PULSE 70
--- NOTE | 2023-01-13 19:18 | XRAY ---
Indication: Near syncope. Multiple contiguous axial images obtained through the head without contrast. Comparison: None Normal appearing brain parenchyma, ventricles, and bony calvarium. Visualized paranasal sinuses and mastoid air cells are clear. Impression: Normal CT head without contrast exam.
== END 2023-01-13 15:30 | disposition home or self-care (01) ==
LOC: ED 13:16
DX: R55 Syncope and collapse (principal); R11.0 Nausea; Z79.899 Other long term (current) drug therapy; Z28.310 Unvaccinated for COVID-19
CPT/HCPCS: 36415; 70450; 80053; 81001; 84484; 85025; 85610; 85730; 99283

== ENCOUNTER 2023-07-14 09:49 | Emergency (ER) | payer OTHER ==
--- NOTE | 2023-07-14 09:56 | ERPHSYRPT ---
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 In review of the patient's old charts, it appears as though she has had this episode on 01/13/2023. Today symptoms came on suddenly. She does not know what brought them on. She denies pain of any kind. She has no shortness of breath and she has no chest pain. Her blood sugar level was 80. Patient has a history of anxiety and panic disorder, a rrhythmia/SVT and Raynaud's disease. Timing/Duration: today Severity: mild (To moderate) Associated Symptoms: weakness, No nausea, No vomiting, No abdominal pain, No shortness of breath, No chest pain, No syncope Allergies/Adverse Reactions: citalopram hydrobromide [From [employer]] Adverse Reaction (Verified 07/14/23 09:54) INCREASE IN HEART RATE Home Medications: Metoprolol Succinate 50 mg [Toprol Xl 50 MG] 50 mg PO HS 12/31/21 [History] Hx Tetanus, Diphtheria Vaccination/Date Given: No Hx Influenza Vaccination/Date Given: No Hx Pneumococcal Vaccination/Date Given: No Travel Risk - International Travel Have you traveled outside of the country in past 3 weeks: No - Coronavirus Screening Are you exhibiting any of the following symptoms?: No Close contact with a COVID-19 positive Pt in past 14-21 Days: No - Vaccine Status Have you recieved a Covid-19 vaccination: No - Review of Systems Constitutional: Weakness Eyes: No Symptoms Ears, Nose, & Throat: No Symptoms Respiratory: No Symptoms Cardiac: No Symptoms Abdominal/Gastrointestinal: No Symptoms Genitourinary Symptoms: No Symptoms Musculoskeletal: No Symptoms Skin: No Symptoms Neurological: Dizziness Psychological: No Symptoms Endocrine: No Symptoms Hematologic/Lymphatic: No Symptoms Immunological/Allergic: No Symptoms All Other Systems: Reviewed and Negative - Past Medical History Pertinent Past Medical History: Yes Neurological History: No Pertinent History ENT History: No Pertinent History Cardiac History: Arrhythmia Respiratory History: No Pertinent History Endocrine Medical History: No Pertinent History Musculoskeletal History: Other GI Medical History: No Pertinent History History: No Pertinent History Psycho-Social History: Anxiety, Panic Disorder Female Reproductive Disorders: No Pertinent History Other Medical History: raynauds. SVT - Past Surgical History Past Surgical History: Yes Female Surgical History: Section Other Surgical History: tonsillectomy, 2 C-sections in the past - Social History Smoking Status: Never smoker Exposure to second hand smoke: No Drug Use: none Patient Lives Alone: No Significant Family History: no pertinent family hx - Nursing Vital Signs Nursing Vital Signs: Initial Vital Signs Pulse Rate 125 H 07/14/23 09:52 Respiratory Rate 20 07/14/23 09:52 Blood Pressure 173/92 07/14/23 09:52 O2 Sat by Pulse Oximetry 100 07/14/23 09:52 Pain Scale Pain Intensity 0 - Physical Exam General Appearance: no apparent distress, alert, anxiety Eye Exam: PERRL/EOMI, eyes nml inspection Ears, Nose, Throat Exam: normal ENT inspection, moist mucous membranes Neck Exam: normal inspection, non-tender, supple, full range of motion Respiratory Exam: normal breath sounds, lungs clear, airway intact, No chest tenderness, No respiratory distress Cardiovascular Exam: tachycardia Gastrointestinal/Abdomen Exam: soft, normal bowel sounds, No tenderness Pelvic Exam: not done Rectal Exam: not done Back Exam: normal inspection, normal range of motion, No CVA tenderness, No jayce tebral tenderness Extremity Exam: normal inspection, normal range of motion, pelvis stable Neurologic Exam: alert, oriented x 3, cooperative, automatic folder seamer II-XII nml as tested, normal mood/affect, nml cerebellar function, nml station & gait, sensation nml Skin Exam: normal color, warm, dry Lymphatic Exam: No adenopathy SpO2 Interpretation: normal O2 Delivery: Room Air - Course Nursing assessment & vital signs reviewed: Yes EKG Interpreted by Me: RATE (90), Sinus Rhythm, NORMAL AXIS, NORMAL INTERVALS, NORMAL QRS, NORMAL ST-T, Other (No acute ischemic changes on today's twelve-lead EKG.) Ordered Tests: Active Orders 24 hr Category Date Time Status Electrical Systems Engineer STAT Care 07/14/23 10:02 Active Clean Catch Urine Specimen STAT Care 07/14/23 10:01 Active EKG-ER Only STAT Care 07/14/23 10:01 Active IV Insertion STAT Care 07/14/23 10:01 Active HEAD WITHOUT CONTRAST [CT] Stat Exams 07/14/23 10:02 Completed CBC W DIFF Stat Lab 07/14/23 10:00 Completed CMP Stat Lab 07/14/23 10:00 Completed ETHYL ALCOHOL Stat Lab 07/14/23 10:00 Completed MAGNESIUM Stat Lab 07/14/23 10:00 Completed MONO SCREEN Stat Lab 07/14/23 Ordered T4 (Thyroxine) Stat Lab 07/14/23 10:00 Completed TROPONIN Q4H Lab 07/14/23 10:00 Completed TROPONIN Q4H Lab 07/14/23 14:15 Ordered TROPONIN Q4H Lab 07/14/23 18:15 Ordered TSH, 3RD Generation Stat Lab 07/14/23 10:00 Completed UA W/RFX UR CULTURE Stat Lab 07/14/23 10:01 Completed Urine Triage Profile Stat Lab 07/14/23 10:01 Completed Medication Summary Discontinued Medications Generic Name Dose Route Start Last Admin Trade Name Freq PRN Reason Stop Dose Admin Sodium Chloride 1,000 mls @ 999 mls/hr 07/14/23 10:01 07/14/23 10:10 Sodium Chloride 0.9% 1000 Ml IV 07/14/23 11:01 999 mls/hr .Q1H1M STA Administration Sodium Chloride Confirm 07/14/23 10:09 Sodium Chloride 0.9% 1000 Ml Administered 07/14/23 10:10 Dose 1,000 mls @ ud .ROUTE .STK-MED ONE Lab/Rad Data: Laboratory Result Diagrams 07/14/23 10:00 07/14/23 10:00 Laboratory Results 07/14/23 07/14/23 07/14/23 Range/Units 10:01 10:01 10:00 WBC (4.0-10.5) x10^3/uL RBC (4.1-5.4) x10^6/uL Hgb (12.0-16.0) g/dL Hct (35-47) % MCV (78-100) fL MCH (26-32) pg MCHC (32-36) g/dL RDW (11.5-14.0) % Plt Count (150-450) x10^3/uL MPV (7.5-11.0) fL Gran % (36.0-66.0) % Immature Gran % (Auto) (0.00-0.4) % Nucleat RBC Rel Count (0.00-0.1) % Eos # (Auto) (0-0.5) x10^3/uL Immature Gran # (Auto) (0.00-0.03) x10^3u/L Absolute Lymphs (auto) (1.0-4.6) x10^3/uL Absolute Monos (auto) (0.0-1.3) x10^3/uL Absolute Nucleated RBC (0.00-0.01) x10^3u/L Lymphocytes % (24.0-44.0) % Monocytes % (0.0-12.0) % Eosinophils % (0.00-5.0) % Basophils % (0.0-0.4) % Absolute Granulocytes (1.4-6.9) x10^3/uL Basophils # (0-0.4) x10^3/uL Sodium (137-145) mmol/L Potassium (3.5-5.1) mmol/L Chloride (98-107) mmol/L Carbon Dioxide (22-30) mmol/L Anion Gap (5-15) MEQ/L BUN (7-17) mg/dL Creatinine (0.52-1.04) mg/dL Estimated GFR ML/MIN Glucose (74-106) mg/dL Calcium (8.4-10.2) mg/dL Magnesium (1.6-2.3) mg/dL Total Bilirubin (0.2-1.3) mg/dL AST (14-36) U/L ALT (0-35) U/L Alkaline Phosphatase (38-126) U/L Troponin I < 0.012 (0.000-0.034) ng/mL Serum Total Protein (6.3-8.2) g/dL Albumin (3.5-5.0) g/dL Thyroxine (T4) (5.53-10.96) ug/dL TSH 3rd Generation (0.47-4.68) mIU/L Urine Color Yellow (Yellow) Urine Appearance Clear (Clear) Urine pH 6.0 (4.6-8.0) Ur Specific Carpenter <=1.005 (1.005-1.030) Urine Protein Negative (Negative) Urine Glucose (UA) Negative (Negative) mg/dL Urine Ketones Negative (Negative) Urine Blood Trace (Negative) Urine Nitrite Negative (Negative) Urine Bilirubin Negative (Negative) Urine Urobilinogen 0.2 (0.2) mg/dL Ur Leukocyte Esterase Negative (Negative) U Hyaline Cast (Auto) NONE SEEN (0-2) /LPF Urine Microscopic RBC 0-2 (0-5) /HPF Urine Microscopic WBC 0-2 (0-5) /HPF Ur Epithelial Cells None Seen (None Seen) /HPF Urine Bacteria None Seen (None Seen) /HPF Urine Culture Reflexed NO (NO) Urine Opiates Level NEGATIVE (NEGATIVE) Ur Methadone NEGATIVE (NEGATIVE) Urine Barbiturates NEGATIVE (NEGATIVE) Ur Phencyclidine (PCP) NEGATIVE (NEGATIVE) Urine Amphetamine NEGATIVE (NEGATIVE) U Benzodiazepine Level NEGATIVE (NEGATIVE) Urine Cocaine NEGATIVE (NEGATIVE) Urine Marijuana (THC) NEGATIVE (NEGATIVE) Ethyl Alcohol (0-10) mg/dL 07/14/23 07/14/23 Range/Units 10:00 10:00 WBC 7.1 (4.0-10.5) x10^3/uL RBC 4.71 (4.1-5.4) x10^6/uL Hgb 14.5 (12.0-16.0) g/dL Hct 44.4 (35-47) % MCV 94.3 (78-100) fL MCH 30.8 (26-32) pg MCHC 32.7 (32-36) g/dL RDW 11.9 (11.5-14.0) % Plt Count 320 (150-450) x10^3/uL MPV 9.9 (7.5-11.0) fL Gran % 59.7 (36.0-66.0) % Immature Gran % (Auto) 0.3 (0.00-0.4) % Nucleat RBC Rel Count 0.0 (0.00-0.1) % Eos # (Auto) 0.23 (0-0.5) x10^3/uL Immature Gran # (Auto) 0.02 (0.00-0.03) x10^3u/L Absolute Lymphs (auto) 1.81 (1.0-4.6) x10^3/uL Absolute Monos (auto) 0.75 (0.0-1.3) x10^3/uL Absolute Nucleated RBC 0.00 (0.00-0.01) x10^3u/L Lymphocytes % 25.5 (24.0-44.0) % Monocytes % 10.6 (0.0-12.0) % Eosinophils % 3.2 (0.00-5.0) % Basophils % 0.7 (0.0-0.4) % Absolute Granulocytes 4.23 (1.4-6.9) x10^3/uL Basophils # 0.05 (0-0.4) x10^3/uL Sodium 142 (137-145) mmol/L Potassium 3.8 (3.5-5.1) mmol/L Chloride 104 (98-107) mmol/L Carbon Dioxide 23 (22-30) mmol/L Anion Gap 17.9 H (5-15) MEQ/L BUN 14 (7-17) mg/dL Creatinine 0.77 (0.52-1.04) mg/dL Estimated GFR 93.3 ML/MIN Glucose 114 H (74-106) mg/dL Calcium 9.9 (8.4-10.2) mg/dL Magnesium 2.0 (1.6-2.3) mg/dL Total Bilirubin 0.60 (0.2-1.3) mg/dL AST 27 (14-36) U/L ALT 18 (0-35) U/L Alkaline Phosphatase 74 (38-126) U/L Troponin I (0.000-0.034) ng/mL Serum Total Protein 8.6 H (6.3-8.2) g/dL Albumin 5.0 (3.5-5.0) g/dL Thyroxine (T4) 9.15 (5.53-10.96) ug/dL TSH 3rd Generation 1.040 (0.47-4.68) mIU/L Urine Color (Yellow) Urine Appearance (Clear) Urine pH (4.6-8.0) Ur Specific Carpenter (1.005-1.030) Urine Protein (Negative) Urine Glucose (UA) (Negative) mg/dL Urine Ketones (Negative) Urine Blood (Negative) Urine Nitrite (Negative) Urine Bilirubin (Negative) Urine Urobilinogen (0.2) mg/dL Ur Leukocyte Esterase (Negative) U Hyaline Cast (Auto) (0-2) /LPF Urine Microscopic RBC (0-5) /HPF Urine Microscopic WBC (0-5) /HPF Ur Epithelial Cells (None Seen) /HPF Urine Bacteria (None Seen) /HPF Urine Culture Reflexed (NO) Urine Opiates Level (NEGATIVE) Ur Methadone (NEGATIVE) Urine Barbiturates (NEGATIVE) Ur Phencyclidine (PCP) (NEGATIVE) Urine Amphetamine (NEGATIVE) U Benzodiazepine Level (NEGATIVE) Urine Cocaine (NEGATIVE) Urine Marijuana (THC) (NEGATIVE) Ethyl Alcohol < 10 (0-10) mg/dL - Progress Progress: improved Progress Note: 07/14/23 10:10 This patient's medical issue is 1 of moderate complexity. The level complex in the work-up performed is based on review the patient's past medical history, review of the patient's drug allergy list, review of the patient's history of present illness and physical findings on examination. Work-up in the patient include placement of intravenous line, infusion 1 L normal saline solution, CBC, CMP, urinalysis, urine drug screen, alcohol level, CT scan of her head, twelve- lead EKG and troponin level. 07/14/23 10:51 CT scan of the head without contrast was interpreted by the radiologist and I reviewed the impression. The impression is this is a normal CT scan of the head without contrast. 07/14/23 11:47 I reviewed and interpreted the patient laboratory studies and she does not have any acute, emergent medical issue. Patient refuses the COVID/viral studies. We are awaiting the monotest. Patient states that a family member of hers has a positive mono test. Patient did state that she has been under a lot of stress lately. 07/14/23 11:48 Counseled pt/family regarding: lab results, diagnosis, need for follow-up, rad results Medical Desision Making - Diagnostic Testing Diagnostic test were ordered, analyzed, and reviewed by me: Yes Radiological Interpretation: Reviewed by me, Teleradiologist Report - Risk of complications Minimal Risk: Minimal risk of morbidity - Departure Departure Disposition: Home Clinical Impression: Dizziness, Weakness Condition: Stable Critical Care Time: No Referrals: FRANCISCO SMALL NP [Primary Care Provider] - Follow up/PCP as directed Additional Instructions: Drink plenty of fluids. Continue her medication as prescribed. Call your primary care provider today, 07/14/2023, to make arrangements for follow-up appo intment in the next 3 to 5 days for further evaluation management. Call your crtts today, 07/14/2023 to make arrangements for follow-up appointment in the next 3 to 5 days for further management and evaluation
[2023-07-14] MEDS ORDERED: Sodium Chloride 0.9% 1000 ML 1,000 ML IV STA (10:01)
[2023-07-14] MEDS ORDERED: Sodium Chloride 0.9% 1000 ML 1,000 ML ONE (10:09)
[2023-07-14 10:14] LABS: Absolute Neutrophil Ct (ANC) 4.23 x10^3/uL (1.4-6.9); BASOPHIL % 0.7 % (0.0-0.4); Basophil (Absolute #) 0.05 x10^3/uL (0-0.4); Eosinophil % 3.2 % (0.00-5.0); Eosinophil (Absolute #) 0.23 x10^3/uL (0-0.5); Hematocrit 44.4 % (35-47); Hemoglobin 14.5 g/dL (12.0-16.0); IMMATURE GRAN # 0.02 x10^3u/L (0.00-0.03); IMMATURE GRAN % 0.3 % (0.00-0.4); Lymphocyte (Absolute #) 1.81 x10^3/uL (1.0-4.6); Lymphocytes % 25.5 % (24.0-44.0); Mean Cell Volume 94.3 fL (78-100); Mean Corpuscular Hemoglobin 30.8 pg (26-32); Mean Corpuscular Hgb Concent. 32.7 g/dL (32-36); Mean Platelet Volume 9.9 fL (7.5-11.0); Monocyte (Absolute #) 0.75 x10^3/uL (0.0-1.3); Monocytes % 10.6 % (0.0-12.0); Neutrophil % 59.7 % (36.0-66.0); Platelet Count 320 x10^3/uL (150-450); Red Blood Count 4.71 x10^6/uL (4.1-5.4); Red Cell Distribution Width 11.9 % (11.5-14.0); White Blood Count 7.1 x10^3/uL (4.0-10.5)
--- NOTE | 2023-07-14 10:33 | XRAY ---
Indication: Dizziness. Multiple contiguous axial images obtained through the head without contrast. Comparison: January 13, 2023 Normal appearing brain parenchyma, ventricles, and bony calvarium. Visualized paranasal sinuses and mastoid air cells are clear. Impression: Continued normal CT head without contrast exam.
[2023-07-14 10:58] LABS: ALKALINE PHOSPHATASE 74 U/L (38-126); ANION GAP 17.9 MEQ/L (5-15); BLOOD UREA NITROGEN 14 mg/dL (7-17); CHLORIDE 104 mmol/L (98-107); Calcium 9.9 mg/dL (8.4-10.2); Carbon Dioxide 23 mmol/L (22-30); Creatinine 1 0.77 mg/dL (0.52-1.04); EST GLOMERULAR FILTRATION RATE 93.3 ML/MIN; ETHYL ALCOHOL < 10 mg/dL (0-10); Glucose 114 mg/dL (74-106); Potassium 3.8 mmol/L (3.5-5.1); SGOT/AST 27 U/L (14-36); SGPT/ALT 18 U/L (0-35); SODIUM 142 mmol/L (137-145); T4 (Thyroxine) 9.15 ug/dL (5.53-10.96); Total Protein 8.6 g/dL (6.3-8.2)
[2023-07-14 11:22] VITALS: PULSE 73
[2023-07-14 11:24] LABS: Appearance Clear (Clear); Bacteria None Seen /HPF (None Seen); Bilirubin Negative (Negative); Blood Trace (Negative); Epithelial Cells None Seen /HPF (None Seen); Glucose, Urine Negative (Negative); Hyaline Casts NONE SEEN /LPF (0-2); Ketones Negative (Negative); Leukocyte Esterase Negative (Negative); Nitrite Negative (Negative); Protein,Urine Dip Negative (Negative); RBC 0-2 /HPF (0-5); Specific Gravity <=1.005 (1.005-1.030); Urobilinogen 0.2 mg/dL (0.2); WBC 0-2 /HPF (0-5)
[2023-07-14 11:26] LABS: ADD URINE CULTURE? NO (NO)
[2023-07-14 11:37] LABS: Amphetamine,Urine NEGATIVE (NEGATIVE); Barbiturate,Urine NEGATIVE (NEGATIVE); Benzodiazepine,Urine NEGATIVE (NEGATIVE); Cocaine,Urine NEGATIVE (NEGATIVE); Methadone,Urine NEGATIVE (NEGATIVE); Opiate,Urine NEGATIVE (NEGATIVE); PCP,Urine NEGATIVE (NEGATIVE); THC,Urine NEGATIVE (NEGATIVE)
[2023-07-14 12:02] VITALS: BP 122/68; RESP 14; O2SAT 99
== END 2023-07-14 12:27 | disposition home or self-care (01) ==
LOC: ED 09:49
DX: R42 Dizziness and giddiness (principal); R53.1 Weakness; Z79.899 Other long term (current) drug therapy; Z28.310 Unvaccinated for COVID-19
CPT/HCPCS: 36000; 36415; 70450; 80053; 80307; 81001; 82077; 83735; 84436; 84443; 84484; 85025; 86308; 93005; 93041; 96374; 99284

== ENCOUNTER 2024-08-06 09:17 | Emergency (ER) | payer OTHER ==
[2024-08-06 09:35] VITALS: RESP 18; TEMP 97.5
[2024-08-06 09:42] VITALS: O2SAT 97
[2024-08-06] MEDS ORDERED: DUONEB 0.5-3 MG/3 ml Neb IH ONE (09:44)
[2024-08-06 10:00] LABS: Absolute Neutrophil Ct (ANC) 8.26 x10^3/uL (1.56-6.13); BASOPHIL % 0.5 % (0.1-1.2); Basophil (Absolute #) 0.05 x10^3/uL (0.01-0.08); Eosinophil % 1.1 % (0.7-5.8); Eosinophil (Absolute #) 0.12 x10^3/uL (0.04-0.36); Hematocrit 43.9 % (34.1-44.9); Hemoglobin 14.4 g/dL (11.2-15.7); IMMATURE GRAN # 0.03 x10^3u/L (0.001-0.031); IMMATURE GRAN % 0.3 % (0.001-0.429); Lymphocyte (Absolute #) 1.11 x10^3/uL (1.18-3.74); Lymphocytes % 10.6 % (19.3-51.7); Mean Corpuscular Hemoglobin 30.5 pg (25.6-32.2); Mean Corpuscular Hgb Concent. 32.8 g/dL (32.2-35.5); Mean Platelet Volume 9.6 fL (9.4-12.3); Monocyte (Absolute #) 0.88 x10^3/uL (0.24-0.86); Monocytes % 8.4 % (4.7-12.5); Neutrophil % 79.1 % (34.0-71.1); Platelet Count 328 x10^3/uL (182-369); Red Blood Count 4.72 x10^6/uL (3.93-5.22); Red Cell Distribution Width 11.9 % (11.7-14.4); White Blood Count 10.5 x10^3/uL (3.98-10.04)
--- NOTE | 2024-08-06 10:01 | ERPHSYRPT ---
- History of Present Illness Time Seen by Provider: 08/06/24 09:58 Source: patient Exam Limitations: no limitations Patient Subjective Stated Complaint: pt here for a cough,congestion and fatigue. son has covid Triage Nursing Assessment: pt alert, resp easy, has dry cough, maski in place, skin w/d/p, chest clear, no edema noted Physician History: Patient is 54-year-old female with significant past medical history of h ypertension started having a cough chest congestion for last 3 days. Patient states that her son has been positive for COVID. Timing/Duration: day(s) (2-3 days) Cough Quality/Degree: dry cough, productive cough Possible Cause: no prior episodes Associated Symptoms: cough, muscle aches, other (chest congestion) Allergies/Adverse Reactions: citalopram hydrobromide [From [employer]] Adverse Reaction (Verified 08/06/24 09:33) INCREASE IN HEART RATE Home Medications: Metoprolol Succinate 50 mg [Toprol Xl 50 MG] 50 mg PO HS 12/31/21 [Hi story] Hx Tetanus, Diphtheria Vaccination/Date Given: No Hx Influenza Vaccination/Date Given: No Hx Pneumococcal Vaccination/Date Given: No Immunizations Up to Date: Yes Travel Risk - International Travel Have you traveled outside of the country in past 3 weeks: No - Emerging Infectious Disease Are you exhibiting symptoms associated with any current EIDs: Yes Symptoms: Cough: New Onset - Review of Systems Constitutional: Fatigue, Malaise, Weakness, No Fever, No Chills Eyes: No Symptoms Ears, Nose, & Throat: No Symptoms Respiratory: Cough, No Dyspnea Cardiac: No Chest Pain, No Edema, No Syncope Abdominal/Gastrointestinal: No Abdominal Pain, No Nausea, No Vomiting, No Diarrhea Genitourinary Symptoms: No Dysuria Musculoskeletal: No Back Pain, No Neck Pain Skin: No Rash Neurological: No Dizziness, No Focal Weakness, No Sensory Changes Psychological: No Symptoms Endocrine: No Symptoms All Other Systems: Reviewed and Negative - Past Medical History Pertinent Past Medical History: Yes Neurological History: Other ENT History: No Pertinent History Cardiac History: No Pertinent History Respiratory History: No Pertinent History Endocrine Medical History: No Pertinent History Musculoskeletal History: No Pertinent History GI Medical History: No Pertinent History History: No Pertinent History Psycho-Social History: Anxiety, Panic Disorder Female Reproductive Disorders: No Pertinent History Other Medical History: PMH: CARLOSUD'S, PALPITATIONS POST COVID. PSH: 2 C- SECTIONS, TONSILLECTOMY - Past Surgical History Past Surgical History: Yes Neuro Surgical History: No Pertinent History Cardiac: No Pertinent History Respiratory: No Pertinent History Gastrointestinal: No Pertinent History Female Surgical History: Section Other Surgical History: tonsillectomy, 2 C-sections in the past Significant Family History: no pertinent family hx - Female History Hx Last Menstrual Period: post - Social History Smoking Status: Never smoker Exposure to second hand smoke: No Drug Use: none Patient Lives Alone: No - Social Determinants of Health Will the patient participate in the screening: Yes Do you worry about a steady place to live?: No Do you have any problems with any of the following?: No known problems In the past 12 months,have you had to go without utilities?: Yes Transportation Issues: No Has anyone in your support network made you feel unsafe?: Yes Have you or anyone in your house had to go without enough: Yes - Nursing Vital Signs Nursing Vital Signs: Initial Vital Signs Temperature 97.5 F 08/06/24 09:34 Pulse Rate 118 H 08/06/24 09:34 Respiratory Rate 18 08/06/24 09:34 Blood Pressure 141/101 08/06/24 09:34 O2 Sat by Pulse Oximetry 100 08/06/24 09:34 Pain Scale Pain Intensity 3 - Physical Exam General Appearance: mild distress, alert Eye Exam: PERRL/EOMI, eyes nml inspection Ears, Nose, Throat Exam: normal ENT inspection, TMs normal, pharynx normal, moist mucous membranes Neck Exam: normal inspection, non-tender, supple, full range of motion Respiratory Exam: diminished breath sounds, rhonchi, No respiratory distress Cardiovascular Exam: regular rate/rhythm, normal heart sounds Gastrointestinal/Abdomen Exam: soft, No tenderness Back Exam: normal inspection, No CVA tenderness, No vertebral tenderness Extremity Exam: normal inspection, normal range of motion Neurologic Exam: alert, oriented x 3, cooperative, normal mood/affect, sensation nml, No motor deficits Skin Exam: normal color, warm, dry, No rash Lymphatic Exam: No adenopathy SpO2: 97 - Course Nursing assessment & vital signs reviewed: Yes - Radiology Exams Chest X-ray Interpretation: Interpreted by me, Reviewed by me Ordered Tests: Active Orders 24 hr Category Date Time Status EKG-ER Only STAT Care 08/06/24 09:36 Active IV Insertion STAT Care 08/06/24 09:36 Active CHEST 2 VIEWS (PA AND LAT) Stat Exams 08/06/24 10:24 Taken CBC W DIFF Stat Lab 08/06/24 09:58 Completed CMP Stat Lab 08/06/24 09:58 Completed PROCALCITONIN Stat Lab 08/06/24 09:58 Completed Medication Summary Discontinued Medications Generic Name Dose Route Start Last Admin Trade Name Aakash PRN Reason Stop Dose Admin Albuterol/Ipratropium 3 ml 08/06/24 09:36 08/06/24 10:08 Ipratropium/Albuterol Sulfate 3 Ml Ampul.Neb IH 08/06/24 09:37 Not Given STAT ONE Albuterol/Ipratropium Confirm 08/06/24 09:44 Ipratropium/Albuterol Sulfate 3 Ml Ampul.Neb Administered 08/06/24 09:45 Dose 3 ml IH .STK-MED ONE Ceftriaxone Sodium 1,000 mg 08/06/24 10:41 Ceftriaxone Sodium 1000 Mg Inj Vial IM 08/06/24 10:42 STAT ONE Lab/Rad Data: Laboratory Result Diagrams 08/06/24 09:58 08/06/24 09:58 Laboratory Results 08/06/24 08/06/24 08/06/24 Range/Units 09:58 09:58 09:58 WBC 10.5 H (3.98-10.04) x10^3/uL RBC 4.72 (3.93-5.22) x10^6/uL Hgb 14.4 (11.2-15.7) g/dL Hct 43.9 (34.1-44.9) % MCV 93.0 (79.4-94.8) fL MCH 30.5 (25.6-32.2) pg MCHC 32.8 (32.2-35.5) g/dL RDW 11.9 (11.7-14.4) % Plt Count 328 (182-369) x10^3/uL MPV 9.6 (9.4-12.3) fL Gran % 79.1 H (34.0-71.1) % Immature Gran % (Auto) 0.3 (0.001-0.429) % Nucleat RBC Rel Count 0.0 (0.00-0.2) % Eos # (Auto) 0.12 (0.04-0.36) x10^3/uL Immature Gran # (Auto) 0.03 (0.001-0.031) x10^3u/L Absolute Lymphs (auto) 1.11 L (1.18-3.74) x10^3/uL Absolute Monos (auto) 0.88 H (0.24-0.86) x10^3/uL Absolute Nucleated RBC 0.00 (0.00-0.012) x10^3u/L Lymphocytes % 10.6 L (19.3-51.7) % Monocytes % 8.4 (4.7-12.5) % Eosinophils % 1.1 (0.7-5.8) % Basophils % 0.5 (0.1-1.2) % Absolute Granulocytes 8.26 H (1.56-6.13) x10^3/uL Basophils # 0.05 (0.01-0.08) x10^3/uL Sodium 142 (135-145) mmol/L Potassium 4.3 (3.5-5.1) mmol/L Chloride 106 (98-107) mmol/L Carbon Dioxide 27 (22-30) mmol/L Anion Gap 12.7 (5-15) MEQ/L BUN 8 (7-17) mg/dL Creatinine 0.85 (0.52-1.04) mg/dL Estimated GFR 82.4 ML/MIN Glucose 110 H (74-106) mg/dL Calcium 10.0 (8.4-10.2) mg/dL Total Bilirubin 0.80 (0.2-1.3) mg/dL AST 32 (14-36) U/L ALT 17 (0-35) U/L Alkaline Phosphatase 92 (38-126) U/L Serum Total Protein 8.5 H (6.3-8.2) g/dL Albumin 4.8 (3.5-5.0) g/dL Procalcitonin 0.044 (0.030-0.080) ng/mL Influenza Type A Ag NEGATIVE (NEGATIVE) Influenza Type B Ag NEGATIVE (NEGATIVE) RSV (PCR) NEGATIVE (NEGATIVE) SARS-CoV-2 (PCR) NEGATIVE (NEGATIVE) - Progress Progress: improved Air Movement: good Blood Culture(s) Obtained: No Antibiotics given: Yes Counseled pt/family regarding: lab results, diagnosis, need for follow-up, rad results Medical Desision Making - Diagnostic Testing Diagnostic test were ordered, analyzed, and reviewed by me: Yes Radiological Interpretation: Interpreted by me, Reviewed by me - Risk of complications Minimal Risk: Minimal risk of morbidity Low Risk: Low risk of morbidity from additional dx testing or treatment - Departure Departure Disposition: Home Clinical Impression: Acute bronchitis Qualifiers: Bronchitis organism: unspecified organism Qualified Code(s): J20.9 - Acute bronchitis, unspecified Condition: Stable Critical Care Time: No Referrals: FRANCISCO SMALL [facility] [Primary Care Provider] - Follow up/PCP as directed Instructions: Acute bronchitis in adults Additional Instructions: Discharge/Care Plan ENID CARTER was seen on 08/06/24 in the Emergency Room. The patient was counseled regarding Diagnosis,Lab results, Imaging studies, need for follow up and when to return to the Emergency Room. Prescriptions given: Discharge Note I have spoken with the patient and/or caregivers. I have explained the patient's condition, diagnosis and treatment plan based on the information available to me at this time. I have answered the patient's and/or caregiver's questions and addressed any concerns. The patient and/or caregivers have as good understanding of the patient's diagnosis, condition and treatment plan as can be expected at this point. The vital signs have been stable. The patient's condition is stable and appropriate for discharge from the emergency department. The patient will pursue further outpatient evaluation with the primary care p hysician or other designated or consulting physician as outlined in the discharge instructions. The patient and/or caregivers are agreeable to this plan of care and follow-up instructions have been explained in detail. The patient and/or caregivers have received these instruction. The patient/and or caregivers are aware that any significant change in condition or worsening of symptoms should prompt an immediate return to this or the closest emergency department or call 911. ENID CARTER was seen on 08/06/24 n the Emergency Room. At that time you were treated for an emergent condition, during your visit Laboratory, Radiology and/or other procedures may have been ordered. It is very important that you follow-up with your Primary Care Physician FRANCISCO SMALL within the next 24-48 hours to review your Emergency Room visit and the final results of testing that was ordered. Some test results such as Urine Cultures, Blood Cultures, and other cultures if ordered will not be finalized for 24-48 hours. If you do not have a Primary Care Provider please call the medical records department at [phone] ext [phone] to obtain a copy of your results or you may sign into our patient portal to obtain these results by visiting us @ [email or web address] and completing the following steps: 1. Click on the Patient Portal link 2. Click the Patient Self Enrollment Link to complete the enrollment form and entering your 3. Once the enrollment form is completed you will receive an email with a temporary ID and password at the email address you provided. 4. Next choose a user name and password. Your user name must be at least 4 characters long and your password must be at least 4 characters long. 5. Choose a security question from the list and provide your answer to the question. If you already have signed into the Health Portal you may access your Health Care Information 22/03 by the following steps: 1. Login to our website @ [email or web address] 2. Enter your original user name and password. FAQS The [facility] Health Portal is an online tool that contains your Lab Results, Radiology Reports, Visit History, Discharge Instructions and Health Summary Lab and Radiology Results will not be available for 72 hours on the portal. The Portal is a secure site, passwords are encryted and URLs are re-written so they cannot be copied and pasted. You and authorized family members are the only ones who can access your Portal. Also there is a timeout feature that protects your information if you leave the Portal page open. If you have technical difficulty please use the Contact Us link on the page this will allow you to submit any questions you have regarding the Portal or you may contact the Medical Record Department at [phone] ext [phone]. Prescriptions: Amoxicillin 500 mg PO TID #30 tablet Benzonatate 100 mg PO TID #15 cap
[2024-08-06] MEDS: DUONEB 0.5-3 MG/3 ml Neb IH ONE (10:08)
[2024-08-06 10:29] LABS: ALBUMIN 4.8 g/dL (3.5-5.0); ANION GAP 12.7 MEQ/L (5-15); BILIRUBIN,TOTAL 0.8 mg/dL (0.2-1.3); Creatinine 1 0.85 mg/dL (0.52-1.04); EST GLOMERULAR FILTRATION RATE 82.4 ML/MIN; PROCALCITONIN 0.044 ng/mL (0.030-0.080); Potassium 4.3 mmol/L (3.5-5.1); Total Protein 8.5 g/dL (6.3-8.2)
[2024-08-06 10:37] LABS: INFLUENZA A NEGATIVE (NEGATIVE); INFLUENZA B NEGATIVE (NEGATIVE); RESPIRATORY SYNCTIAL VIRUS NEGATIVE (NEGATIVE); SARS-CoV-2 Xpert Express NEGATIVE (NEGATIVE)
[2024-08-06] MEDS: Rocephin 1000 MG INJ IM ONE (10:49)
[2024-08-06 10:50] VITALS: BP 120/81; PULSE 96
--- NOTE | 2024-08-06 18:42 | XRAY ---
Indication: Cough. Fever. Congestion. Family member positive Covid. Comparison: December 31, 2021 PA/lateral chest again demonstrates normal heart and lungs. Bony thorax intact with incidental pectus excavatum deformity. No acute findings.
== END 2024-08-06 11:09 | disposition home or self-care (01) ==
LOC: ED 09:17
DX: J20.9 Acute bronchitis, unspecified (principal); R05.9 Cough, unspecified; R09.81 Nasal congestion; R53.83 Other fatigue; Z20.828 Contact with and (suspected) exposure to other viral communicable diseases
CPT/HCPCS: 0241U; 36415; 71046; 80053; 84145; 85025; 93005; 99285; 99283; A9270-GY

== ENCOUNTER 2024-11-13 07:41 | Emergency (ER) | payer OTHER ==
[2024-11-13 08:02] VITALS: BP 132/72; TEMP 98; O2SAT 98
[2024-11-13] MEDS ORDERED: XYLOCAINE 1% HCL 20 ML MDV ONE (08:12)
[2024-11-13] MEDS ORDERED: ZOFRAN ODT 4 MG ONE (08:46)
[2024-11-13] MEDS: ZOFRAN ODT 4 MG PO ONE (08:47)
--- NOTE | 2024-11-13 08:52 | ERPHSYRPT ---
- History of Present Illness Time Seen by Provider: 11/13/24 08:20 Source: patient Exam Limitations: no limitations Patient Subjective Stated Complaint: pt here for a laceraion to upper lip. she states fell out of shower this morning, no loc Triage Nursing Assessment: pt alert, walked in, resp easy, skin w/d/p. has u shape laceration to upper lip, no bleeding, ice applied to lip Physician History: Patient is a 54-year-old female presents to emergency department for evaluation of a laceration to her right upper lip. Patient was at home. Patient slipped and fell in the bathtub. Patient's face hit the edge of the tub. Patient now has a 1 cm horseshoe shaped laceration at the vermilion border of the upper lip just right to midline. The apex of the horseshoe is facing up towards the forehead. No laceration of the corresponding mucosal surface. The fall was mechanical secondary to a slip. It was not associated with any neuro cardiovascular symptomology. No associated chest pain or shortness of breath. No nausea vomiting or diaphoresis. No numbness tingling or weakness. No neck pain. Cervical spine cleared clinically. Patient does complain of nausea. Patient's son is at the bedside. They voiced no other complaints or concerns at this time. Injury occurred just prior to arrival Portions of this note were created with voice recognition technology. There may be grammatical, spelling, punctuation or sound alike errors Timing/Duration: today Severity: moderate Modifying Factors: Improves With: nothing Associated Symptoms: nausea Allergies/Adverse Reactions: citalopram hydrobromide [From [employer]] Adverse Reaction (Verified 11/13/24 07:48) INCREASE IN HEART RATE Home Medications: Metoprolol Succinate 50 mg [Toprol Xl 50 MG] 50 mg PO HS 12/31/21 [History] Hx Tetanus, Diphtheria Vaccination/Date Given: Yes (2 months ago) Hx Influenza Vaccination/Date Given: No Hx Pneumococcal Vaccination/Date Given: No Immunizations Up to Date: Yes Travel Risk - International Travel Have you traveled outside of the country in past 3 weeks: No - Emerging Infectious Disease Are you exhibiting symptoms associated with any current EIDs: No Symptoms: Cough: New Onset - Review of Systems Constitutional: No Symptoms, No Fever, No Chills Eyes: No Symptoms Ears, Nose, & Throat: No Symptoms Respiratory: No Symptoms, No Cough, No Dyspnea Cardiac: No Symptoms, No Chest Pain, No Edema, No Syncope Abdominal/Gastrointestinal: No Symptoms, No Abdominal Pain, No Nausea, No Vomiting, No Diarrhea Genitourinary Symptoms: No Symptoms, No Dysuria Musculoskeletal: No Symptoms, No Back Pain, No Neck Pain Skin: No Symptoms, No Rash Neurological: No Symptoms, No Dizziness, No Focal Weakness, No Sensory Changes Psychological: No Symptoms Endocrine: No Symptoms Hematologic/Lymphatic: No Symptoms Immunological/Allergic: No Symptoms All Other Systems: Reviewed and Negative - Past Medical History Pertinent Past Medical History: Yes Neurological History: Other ENT History: No Pertinent History Cardiac History: No Pertinent History Respiratory History: No Pertinent History Endocrine Medical History: No Pertinent History Musculoskeletal History: No Pertinent History GI Medical History: No Pertinent History History: No Pertinent History Psycho-Social History: Anxiety, Panic Disorder Female Reproductive Disorders: No Pertinent History Other Medical History: PMH: RAYNAUD'S, PALPITATIONS POST COVID. PSH: 2 C- SECTIONS, TONSILLECTOMY - Past Surgical History Past Surgical History: Yes Neuro Surgical History: No Pertinent History Cardiac: No Pertinent History Respiratory: No Pertinent History Gastrointestinal: No Pertinent History Female Surgical History: Section Other Surgical History: tonsillectomy, 2 C-sections in the past Significant Family History: no pertinent family hx - Female History Hx Last Menstrual Period: post Hx Now: No - Social History Smoking Status: Never smoker Exposure to second hand smoke: No Drug Use: none - Social Determinants of Health Will the patient participate in the screening: Yes Do you worry about a steady place to live?: No Do you have any problems with any of the following?: No known problems In the past 12 months,have you had to go without utilities?: Yes Transportation Issues: No Has anyone in your support network made you feel unsafe?: Yes Have you or anyone in your house had to go w/o enough food: Yes - Nursing Vital Signs Nursing Vital Signs: Initial Vital Signs Pulse Rate 76 11/13/24 08:00 Respiratory Rate 18 11/13/24 08:00 Blood Pressure 132/72 11/13/24 08:00 O2 Sat by Pulse Oximetry 100 11/13/24 08:00 Pain Scale Pain Intensity 4 - Physical Exam General Appearance: no apparent distress, alert Eye Exam: PERRL/EOMI, eyes nml inspection Ears, Nose, Throat Exam: normal ENT inspection, pharynx normal, moist mucous membranes Neck Exam: normal inspection, non-tender, supple, full range of motion Respiratory Exam: normal breath sounds, lungs clear, airway intact, No respiratory distress Cardiovascular Exam: regular rate/rhythm, normal heart sounds, normal peripheral pulses Gastrointestinal/Abdomen Exam: soft, normal bowel sounds, No tenderness, No mass Back Exam: normal inspection, normal range of motion, No CVA tenderness, No vertebral tenderness Extremity Exam: normal inspection, normal range of motion, pelvis stable Neurologic Exam: alert, oriented x 3, cooperative, normal mood/affect, sensation nml, No motor deficits Skin Exam: normal color, warm, dry, other (1 cm horseshoe shaped laceration at the vermilion border upper lip just right of midline. Horseshoe apex would be positioned towards the head.), No rash Lymphatic Exam: No adenopathy SpO2 Interpretation: normal SpO2: 98 O2 Delivery: Room Air Procedures - Laceration/Wound Repair Lip Time of Procedure: 09:00 Wound Location: face Wound Length (cm): 1 Wound's Depth, Shape: superficial Wound Explored: clean Irrigated: Yes Hibiclens Prep: Yes Anesthesia: 1% Lidocaine Volume Anesthetic (ccs): 2 Wound Debrided: No debridement indicated Wound Repaired With: sutures Suture Size/Type: 6-0, ethilon Number of Sutures: 6 Layer Closure?: No Splint Applied?: No Sling Applied?: No Progress: Patient tolerated procedure well. No intra or postprocedural complications. Lip neurovascular tact distally post procedure. 11/13/24 09:36 - Nerve Block Time of Procedure: 09:00 Location: Left infraorbital nerve block Prepped with: Alcohol wipe Anesthesia: 1% Lidocaine Volume Anesthetic (ccs): 2 Needle & Syringe: 5 cc syringe. 27-gauge needle Complications: none Progress: Patient tolerated procedure well. No intra or postprocedural complications. - Course Nursing assessment & vital signs reviewed: Yes - CT Exams Head CT Interpretation: Tele-radiologist Report (No acute intracranial process) Maxillofacial Bones CT Interpretation: Tele-radiologist Report (No fractures or dislocations) Ordered Tests: Active Orders 24 hr Category Date Time Status FACIAL BONES WO CONTRAST [CT] Stat Exams 11/13/24 08:14 Completed HEAD WITHOUT CONTRAST [CT] Stat Exams 11/13/24 08:13 Completed Medication Summary Discontinued Medications Generic Name Dose Route Start Last Admin Trade Name Aakash PRN Reason Stop Dose Admin Lidocaine HCl Confirm 11/13/24 08:12 Lidocaine Hcl 1% 20 Ml Mdv 20 Ml Ml Administered 11/13/24 08:13 Dose 5 ml .ROUTE .STK-MED ONE Ondansetron HCl 4 mg 11/13/24 08:37 Zofran 4 Mg/Udtablet Orally Disintegrating PO 11/13/24 08:38 STAT ONE Ondansetron HCl Confirm 11/13/24 08:46 Zofran 4 Mg/Udtablet Orally Disintegrating Administered 11/13/24 08:47 Dose 4 mg .ROUTE .STK-MED ONE - Progress Progress: improved Progress Note: 54-year-old female presents to our emergency department for evaluation of lip laceration status post mechanical fall at home. Patient hit her face on a bathtub. Injury occurred just prior to arrival. Patient has a 1 cm horseshoe shaped laceration at the vermilion border of the right lip just right of midline. No other obvious injuries sustained. Patient complained of pain to the maxilla area. Cervical spine cleared clinically. CT head facial bones both negative for acute pathology. Anesthesia was obtained using an infraorbital nerve block. No intra or postprocedural complications. Patient tolerated procedure well. 6 simple interrupted sutures using 6-0 Ethilon was used to repair the laceration. Patient tolerated procedure well. No intra or postprocedural complications. Prophylactic antibiotics ordered. 5-day course of Keflex advised. Keflex forwarded to patient's pharmacy. Work note provided. Patient agrees to follow-up with her primary care doctor within 48 hours for r eevaluation. She voices no other complaints or concerns at this time. Portions of this note were created with voice recognition technology. There may be grammatical, spelling, punctuation or sound alike errors Complexity of problem addressed is moderate acute complicated. No critical care time. Complex of data reviewed and analyzed is moderate. Test ordered test reviewed results analyzed and correlated clinically with history and physical exam. Risk of complication and or risk of morbidity/mortality of patient management is moderate. A prescription for Keflex and Zofran forwarded to patient's pharmacy. Vital stable. Time spent to discharge patient is approximately 15 minutes. Plan of care established for shared decision making. No social determinants of health present to impede follow-up. Portions of this note were created with voice recognition technology. There may be grammatical, spelling, punctuation or sound alike errors 11/13/24 09:41 Counseled pt/family regarding: diagnosis, need for follow-up, rad results - Departure Departure Disposition: Home Clinical Impression: Fall, Lip laceration, Concussion Condition: Stable Critical Care Time: No Referrals: FRANCISCO SMALL NP [Primary Care Provider] - Follow up/PCP as directed Additional Instructions: Discharge/Care Plan ENID CARTER was seen on 11/13/24 in the Emergency Room. The patient was counseled regarding Diagnosis,Lab results, Imaging studies, need for follow up and when to return to the Emergency Room. Prescriptions given: Discharge Note I have spoken with the patient and/or caregivers. I have explained the patient's condition, diagnosis and treatment plan based on the information available to me at this time. I have answered the patient's and/or caregiver's questions and addressed any concerns. The patient and/or caregivers have as good understanding of the patient's diagnosis, condition and treatment plan as can be expected at this point. The vital signs have been stable. The patient's condition is stable and appropriate for discharge from the emergency department. The patient will pursue further outpatient evaluation with the primary care physician or other designated or consulting physician as outlined in the discharge instructions. The patient and/or caregivers are agreeable to this plan of care and follow-up instructions have been explained in detail. The patient and/or caregivers have received these instruction. The patient/and or caregivers are aware that any significant change in condition or worsening of symptoms should prompt an immediate return to this or the closest emergency department or call 911. Forms: Work/School Release Form Prescriptions: Ondansetron ODT 4 MG [Zofran Odt 4 mg] 4 mg PO Q6H PRN PRN #10 tablet PRN Reason: Vomiting Cephalexin Mh 500 mg [Keflex 500 mg] 500 mg PO TID 5 Days #15 cap
--- NOTE | 2024-11-13 09:09 | XRAY ---
Indication: Status post fall in shower. Multiple contiguous axial images obtained through the head without contrast. Comparison: July 14, 2023 Normal appearing brain parenchyma, ventricles, and bony calvarium. Visualized paranasal sinuses and mastoid air cells are clear. Impression: Continued normal CT head without contrast exam.
--- NOTE | 2024-11-13 09:11 | XRAY ---
Indication: Status post fall in shower. Multiple contiguous axial images obtained through the facial bones. Sagittal and coronal reformatted images obtained. Comparison: None Normal bones, articulation, and noncontrasted soft tissues. Paranasal sinuses and nasal passages are pneumatized and clear. Impression: Normal CT facial bones.
[2024-11-13 10:08] VITALS: PULSE 86; RESP 18
== END 2024-11-13 10:10 | disposition home or self-care (01) ==
LOC: ED 07:41
DX: S01.511A Laceration without foreign body of lip, initial encounter (principal); S06.0X0A Concussion without loss of consciousness, initial encounter; W18.2XXA Fall in (into) shower or empty bathtub, initial encounter; Y92.002 Bathroom of unspecified non-institutional (private) residence as the place of occurrence of the external cause; Z79.899 Other long term (current) drug therapy; Z59.12 Inadequate housing utilities; Z59.41 Food insecurity; Z63.9 Problem related to primary support group, unspecified
CPT/HCPCS: 12011; 70450; 70486; 99284; Q0162